=== PATIENT | male | born 1940 | race Caucasian/White ===

== ENCOUNTER → 2016-07-28 | Day surgery (SDC) | payer OTHER ==
[2016-07-15 08:31] VITALS: BMI 25.0
--- NOTE | 2016-07-15 09:04 | PAT Medication Instructions ---
Service Date Jul 15, 2016. Current Home Medication List Acetaminophen (Tylenol Arthritis Ext Rel), 1,300 MG PO BID PRN for RN Aspirin Enteric Coated (Ecotrin Or Generic *), 81 MG PO QPM Doxazosin Mesylate (Cardura *), 8 MG PO QPM Ranitidine (Zantac), 150 MG PO PRN Simvastatin (Zocor), 40 MG PO QPM Medication Instructions For Your Scheduled Surgery Aspirin Enteric Coated (Ecotrin Or Generic *), 81 MG PO QPM (check with surgeon for instructions) - Hold the following medications the morning of surgery: Ranitidine (Zantac), 150 MG PO PRN - Take the following medications the morning of surgery with a sip of water: Acetaminophen (Tylenol Arthritis Ext Rel), 1,300 MG PO BID PRN for RN - Take the following medications as scheduled the night before surgery: Simvastatin (Zocor), 40 MG PO QPM Ranitidine (Zantac), 150 MG PO PRN Doxazosin Mesylate (Cardura *), 8 MG PO QPM Acetaminophen (Tylenol Arthritis Ext Rel), 1,300 MG PO BID PRN for RN If you have any questions please call us at [phone] (Raeann Norris PA-C ) or [phone] or [phone]
--- NOTE | 2016-07-15 09:51 | DIAGNOSTIC IMAGING REPORT ---
CHEST PREADMISSION(PA/LAT) CLINICAL HISTORY: Preoperative evaluation. COMPARISON STUDY: No previous studies for comparison. FINDINGS: Lung volumes are normal. There is no pneumothorax or pleural effusion. Pulmonary vascularity is normal. No consolidation is identified to suggest pneumonia. Cardiac size is normal. Mediastinal contours are normal. Lateral view demonstrates a moderate to severe thoracic spine compression fracture within the mid to lower thoracic spine which is likely old. IMPRESSION: 1. No acute cardiopulmonary findings. 2. Old thoracic spine compression fracture. Electronically signed by: Eladio Sanders M.D. 07/15/2016 9:50 AM Dictated Date/Time: 07/15/2016 9:49 AM
[2016-07-15 10:01] LABS: BASO % 0.7 %; BASO ABS # 0.04 K/uL (0-0.2); COMPLETE YES; EOS % 4.3 %; IG% 0.2 %; LYMPH % 24.1 %; LYMPH ABS # 1.45 K/uL (1.2-3.4); MEAN CELL VOLUME 96.3 fL (80-100); MEAN CORPUSCULAR HEMOGLOBIN 33.9 pg (25-34); MEAN CORPUSCULAR HGB CONC 35.2 g/dl (32-36); MEAN PLATELET VOLUME 10.1 fL (7.4-10.4); MONO % 8.2 %; NEUT % 62.5 %; PLATELET COUNT 236 K/uL (130-400); RED BLOOD COUNT 4.36 M/uL (4.7-6.1); WHITE BLOOD COUNT 6.01 K/uL (4.8-10.8)
[2016-07-15 10:02] LABS: URINE APPEARANCE CLEAR (CLEAR); URINE BILIRUBIN NEG (NEG); URINE COLOR YELLOW; URINE NITRITE NEG (NEG); URINE SPECIFIC GRAVITY 1.019 (1.000-1.030); UROBILINOGEN NEG (NEG)
[2016-07-15 10:05] LABS: MANUAL MICROSCOPIC REQUIRED? NO; REVIEW REQ? NO
[2016-07-15 10:15] LABS: PARTIAL THROMBOPLASTIN RATIO 1.1; PROTHROMBIN TIME (PATIENT) 10.7 SECONDS (9.0-12.0)
[2016-07-15 10:22] LABS: BUN/CREATININE RATIO 17.3 (10-20); CALCIUM 8.9 mg/dl (8.5-10.1); CREATININE 1.3 mg/dl (0.60-1.40); POTASSIUM 4.3 mmol/L (3.5-5.1)
--- NOTE | 2016-07-27 10:18 | HISTORY & PHYSICAL EXAMINATION ---
DATE OF ADMISSION: 07/28/2016 CHIEF COMPLAINT: Left shoulder pain. HISTORY OF PRESENT ILLNESS: The patient is a 75-year-old gentleman seen and evaluated in our office with complaints of left shoulder pain and disability. He had x-rays and an MRI. MRI showed a left shoulder rotator cuff tear and he is now scheduled for a left shoulder arthroscopy, subacromial decompression, and rotator cuff repair. PAST MEDICAL HISTORY: Stage III chronic kidney disease, osteoporosis, hyperlipidemia, diverticulosis. PAST SURGICAL HISTORY: Lithotripsy, abdominal exploration, colonoscopy, inguinal hernia repair as a child. MEDICATIONS: Aspirin 81 mg daily, Zantac 150 mg daily, simvastatin 80 mg daily, doxazosin mesylate 8 mg daily at bedtime. ALLERGIES: PRAVASTATIN WHICH CAUSES A RASH. SOCIAL HISTORY: He states [id number] smoking history. REVIEW OF SYSTEMS: Noncontributory. PHYSICAL EXAMINATION: GENERAL: Well-nourished, well-developed elderly male who appears stated age. HEENT: Normocephalic, atraumatic, extraocular movements intact, oropharynx pink and moist. NECK: Supple without adenopathy. LUNGS: Clear to auscultation bilaterally. HEART: Regular rate and rhythm. ABDOMEN: Soft, nontender, nondistended. EXTREMITIES: The left shoulder demonstrates limited painful range of motion. There is weakness in the rotator cuff with resistive testing. X-RAYS: The MRI was reviewed and shows a small nonretracted supraspinatus tear. There are some mild degenerative changes at the AC joint. ASSESSMENT: Left shoulder rotator cuff tear. PLAN: Risks versus benefits were discussed, consent was obtained. We will proceed with left shoulder arthroscopy, subacromial decompression, and rotator cuff repair as indicated upon preop workup and medical clearance.
[~2016-07-28] VITALS: Ht 180.3 cm; Wt 81.2 kg
[~2016-07-28] MED LIST: ACET1TAB84 PO; ASPEC81 PO; ATROPINE SULFATE 0.1 MG/ML 5ML SYR IV PRN; CEFAZOLIN SOD 1000MG/55 ML D5W IV ONE; CRD4 PO; DEXAMETHASONE SOD INJ 4 MG/ML VIAL ONE; EpHEDrine SULFATE 50MG/5ML SYR ONE; EpHEDrine SULFATE INJ 50 MG/ML AMP IV PRN; FENTANYL CITRATE INJ 50 MCG/1 ML 2 ML VIAL IV PRN; FENTANYL CITRATE INJ 50 MCG/1 ML 2 ML VIAL ONE; HYDROCODONE/ACETAMOPHEN 5/325MG TAB PO PRN; HYDROmorphone INJ 1 MG/ML SYR IV PRN; LACTATED RINGER'S 1000ML 1,000 ML IV SCH; LIDOCAINE HCL 2% 2 ML VIAL (20MG/ML) ONE; MIDAZOLAM HCL 1 MG/ML 2ML VIAL ONE; NURSING VERBAL MED ORDER ONE; ONDANSETRON INJ 2 MG/ML 2 ML VIAL IV PRN; ONDANSETRON INJ 2 MG/ML 2 ML VIAL ONE; OXYC-57 PO; OXYCODONE/ACETAMINOPHEN 5-325 TAB PO PRN; PHENYLEPHRINE 100MCG/ML 5ML SYR ONE; PROPOFOL IV EMULSION 10 MG/ML 20 ML VIAL IV ONE; ROPIVACAINE 0.5% 5 MG/ML 30 ML VIAL ONE; SIMV40TA2 PO; SODIUM CHLORIDE 0.9% 1000ML 1,000 ML IV SCH; ZNTT/150 PO
[2016-07-28 05:40] VITALS: BP 147/85; PULSE 56; TEMP 36.5; O2SAT 96; Ht 180.3 cm; Wt 81.2 kg
--- NOTE | 2016-07-28 06:57 | History & Physical Bridge Note ---
H&P Re-Evaluation Bridge Note: I have examined the patient, reviewed the History & Physical and in the interval since the performance of the History & Physical I have noted the following changes of clinical significance: No changes noted
--- NOTE | 2016-07-28 08:14 | [facility] Post Operative Brief Note ---
Immediate Operative Summary Operative Date Jul 28, 2016. Pre-Operative Diagnosis Left shoulder rotator cuff tear Post-Operative Diagnosis Left shoulder rotator cuff tear Procedure(s) Performed Left Shoulder Arthroscopic Subacromial Decompression, Rotator Cuff Repair Surgeon Dr. Stephon Sierra Video Poker [place] Surgeon(s) Satya Cox PA-C Estimated Blood Loss 20mL Specimens None per surgeon Complication(s) None Disposition Recovery Room / PACU
--- NOTE | 2016-07-28 08:22 | Discharge Instructions ---
Discharge Instructions Visit Reason for Visit: Left Shoulder Impingement Syndrome, Rotator Cuff T Discharge Discharge Diagnosis / Problem: Left shoulder rotator cuff tear Discharge Goals Goal(s): Decrease discomfort, Improve function Activity Recommendations Activity Limitations: as noted below Anesthesia . Post Anesthesia Instructions: If you have had General Anesthesia or IV Sedation: * Do not drive today. * Resume driving when surgeon permits. * Do not make important decisions or sign legal documents today. * Call surgeon for: 1. Temperature elevations greater than 101 degrees F. 2. Uncontrollable pain. 3. Excessive bleeding. 4. Persistent nausea and vomiting. 5. Medication intolerance (nausea, vomiting or rash). * For nausea and vomiting use only clear liquids such as: tea, soda, bouillon until nausea subsides, then gradually increase diet as tolerated. * If you have any concerns or questions, call your surgeon's office. If physician is unavailable and it is an emergency, call 911 or go to the nearest emergency room. . Instructions / Follow-Up Instructions / Follow-Up [facility] DISCHARGE INSTRUCTIONS: ROTATOR CUFF REPAIR SELF CARE INSTRUCTIONS A. You are permitted to loosen your sling/immobilizer to move your elbow, wrist , and hand to prevent stiffness. You should use your well arm (good arm) to assist the operated extremity when trying to raise the arm away from the body, hygiene purposes. Do NOT actively try to use/engage your shoulder muscles in operative arm at this time. You should NOT do overhead activity, lifting, or attempt to reach behind your back. B. You may/may not be instructed to start Physical Therapy upon discharge depending upon the size and difficulty of the repair. You will be provided a prescription for therapy with specific restrictions, if needed, at time of discharge. C. At 48 hours post-operatively, you may change your dressing. Use band-aids and change daily. You are allowed to shower at this time and get the incision area wet, but DO NOT soak or submerge incision area in water. (No baths, swimming pools, hot tubs) D. Do NOT apply soap or any ointment/lotions directly over incision. E. You may use ice as needed to operative shoulder SPECIAL CARE INSTRUCTIONS: VERY IMPORTANT TO READ AND REVIEW A. There are a few signs you need to watch for after you are home. Call [facility] at [phone] if you experience any of the following: a. Increased severe shoulder pain. Some pain is expected especially when you exercise b. Increased swelling in your shoulder or arm; pain or swelling in either upper extremity. (Note: swelling and stiffness is normal and expected for several weeks post op, depending on type of shoulder surgery you had). c. Any fluid or drainage from the incision; redness of the incision. d. Shortness of breath or chest pain. B. Please call [facility] at [phone] if you have any questions or concerns about your operation or recovery. C. Call your physician if: a. Temperature is greater than 101 degrees (F). b. Pain is not relieved by prescribed pain medications. c. Increase drainage or redness from incision. d. Unanswered questions or concerns. D. Pain Medication: a. You will be prescribed pain medication upon discharge that should last till your first post-operative appointment. b. If you experience nausea and/or skin rash, discontinue this medication and contact our office for an alternative medication. c. Caution- narcotic pain medication can cause constipation. FOLLOW UP VISIT: Please call [facility] at [phone] to schedule a follow up appointment 10-14 days from your surgery date. Diet Recommendations Recommended Home Diet: resume previous diet Procedures Procedures Performed: Left Shoulder Arthroscopic Subacromial Decompression, Rotator Cuff Repair Pending Studies Studies pending at discharge: no Medical Emergencies . Who to Call and When: Medical Emergencies: If at any time you feel your situation is an emergency, please call 911 immediately. . Non-Emergent Contact Non-Emergency issues call your: Surgeon Call Non-Emergent contact if: temperature is above 101.5, your pain is not controlled, wound has increased drainage, wound has increased redness . . "Provider Documentation" section prepared by Satya Cox PA-C.
--- NOTE | 2016-07-28 08:40 | OPERATIVE REPORT ---
DATE OF OPERATION: 07/28/2016 PREOPERATIVE DIAGNOSIS: Rotator cuff tear, left shoulder. POSTOPERATIVE DIAGNOSIS: Rotator cuff tear, left shoulder. PROCEDURE: Arthroscopic subacromial decompression, rotator cuff repair, left shoulder. SURGEON: Dr. Sierra. CASTING AND CURING OPERATOR: Satya Cox PA-C. ANESTHESIA: General. COMPLICATION: None. DESCRIPTION OF PROCEDURE: Following induction of adequate general anesthesia, the patient was placed in the beach chair position, and the posterior shoulder was prepped and draped in the usual sterile manner. A posterior incision was made for insertion of the arthroscope. Intraarticular elements were identified. Glenohumeral joint was normal. The undersurface of the rotator cuff showed a small rotator cuff tear. Long head of the biceps was intact. The arthroscope was placed in the subacromial space where abundant bursitis was encountered. Arthroscopic subacromial decompression and bursectomy was carried out using a 90 degree ablator and a 5.5 mm bur. The bur was then used to expose subchondral bone at the insertion point for the rotator cuff and a single 5.5 mm Healicoil anchor was utilized to repair the rotator cuff. This was taken to a footprint creating a double-row repair which was stable and watertight. There being no additional pathology, the arthroscope was withdrawn. Wounds were closed using 4-0 nylon simple sutures. Sterile dressing of Adaptic, 4 x 4's, ABDs, foam tape and a Velpeau sling was applied. The patient tolerated the procedure well. I attest to the content of the Intraoperative Record and any orders documented therein. Any exceptions are noted below. GEENA
--- NOTE | 2016-07-28 09:17 | Anesthesiology Progress Note ---
Anesthesia Post Op Note Date & Time Jul 28, 2016 at 09:17 Vital Signs Pain Intensity: 0 Vital Signs Past 12 Hours Date Time Temp Pulse Resp B/P Pulse Ox O2 Delivery O2 Flow Rate FiO2 07/28/16 09:05 76 14 138/73 94 Room Air 07/28/16 08:55 36.3 73 14 137/81 96 Room Air 07/28/16 08:45 73 15 146/81 99 Room Air 07/28/16 08:35 69 13 133/73 100 Mask 10 07/28/16 08:25 69 12 132/76 100 Mask 10 07/28/16 08:18 36.0 66 14 127/72 97 Mask 10 07/28/16 05:40 36.5 56 20 147/85 96 Room Air Notes Mental Status: alert / awake / arousable, participated in evaluation Pt Amnestic to Procedure: Yes Nausea / Vomiting: adequately controlled Pain: adequately controlled Airway Patency, RR, SpO2: stable & adequate BP & HR: stable & adequate Hydration State: stable & adequate Anesthetic Complications: no major complications apparent
[2016-07-28 09:20] VITALS: BP 135/73; PULSE 72; TEMP 36.4; O2SAT 93
[2016-07-28 09:50] VITALS: BP 130/76; PULSE 76; TEMP 36.4; O2SAT 94
[2016-07-28 10:20] VITALS: BP 139/76; PULSE 78; TEMP 36.5; O2SAT 94
--- NOTE | 2016-08-01 09:34 | EDITING REQUIRED CODING QUERY ---
CQ ROTATOR CUFF TEAR To promote full compliance with coding requirements relating to patient care, provider participation is requested in all cases of sports specialist uncertainty. Please assist us with the question(s) below: Please Specify the type of Rotator Cuff Tear by placing an "X" within the parenthesis (). If other please document type. () Current/Traumatic (X) Degenerative DOS 07/28/16 () Nontraumatic Complete () Nontraumatic Partial () Other:(Please Specify) Thank you Sabine Torres
== END | disposition home or self-care (01) ==
LOC: C.ACU 05:05
DX: M75.102 Unspecified rotator cuff tear or rupture of left shoulder, not specified as traumatic (principal); M75.52 Bursitis of left shoulder; M81.0 Age-related osteoporosis without current pathological fracture; N18.3 Chronic kidney disease, stage 3 (moderate); F17.210 Nicotine dependence, cigarettes, uncomplicated; E78.5 Hyperlipidemia, unspecified; Z98.890 Other specified postprocedural states

== ENCOUNTER 2023-11-06 14:57 | Inpatient (IN) ==
[2023-11-06 15:41] LABS: iSTAT Creatinine 1.6 mg/dl (0.6-1.3); iSTAT Hemoglobin 12.6 g/dl (14.0-18.0); iSTAT Ionized Calcium 1.08 mmol/l (1.12-1.32); iSTAT Potassium 4.1 mmol/L (3.3-5.0)
--- NOTE | 2023-11-06 15:46 | XRay Report ---
XR chest 1V portable CLINICAL HISTORY: Sepsis TECHNIQUE: Single frontal radiograph of the chest was obtained. Comparison: Comparison is made to chest radiograph 03/03/2023 FINDINGS: No lines and tubes are seen. The cardiomediastinal silhouette is normal. Airspace opacity is in the l eft lower lung. No evidence of pleural effusion or pneumothorax. IMPRESSION: Airspace opacity in the left lower lung. This may represent atelectasis, pneumonia, and/or aspiration . ACT 112: Negative or not required by law. Electronically signed by: Ruddy Clarke M.D. 11/06/2023 3:45 PM
[2023-11-06] MEDS: SODIUM CHLORIDE 0.9% 1,000 ML IV ONE ×2 (15:48→16:56)
[2023-11-06] MEDS: ACETAMINOPHEN 325 MG TAB PO STA (15:48)
[2023-11-06] MEDS: cefTRIAXone SODIUM 2,000 MG/50 ML BAG IV STA (15:48)
[2023-11-06 15:49] LABS: Hematocrit (blood only) 37.1 % (42.0-52.0); Hemoglobin 12.7 g/dl (14.0-18.0); Mean Corpuscular Hemoglobin 32.8 pg (25.0-34.0); Mean Corpuscular Hgb Conc 34.2 g/dL (32.0-36.0); Mean Corpuscular Volume 95.9 fL (80.0-100.0); Mean Platelet Volume 11.5 fL (9.4-12.4); Platelet Count 145 K/uL (130-400); RDW Coefficient of Variation 12.6 % (11.5-14.5); RDW Standard Deviation 44.6 fL (36.4-46.3); Red Blood Count 3.87 M/uL (4.70-6.10); White Blood Count 9.51 K/ul (4.8-10.8)
[2023-11-06] MEDS: AZITHROMYCIN 250 MG TAB PO ONE (15:50)
[2023-11-06 16:04] LABS: Alanine Aminotransferase 18 U/L (7-52); Albumin Level 4.2 gm/dl (3.4-5.0); Alkaline Phosphatase 57 U/L (34-104); Anion Gap 13 (3-11); Aspartate Aminotransferase 45 U/L (13-39); BUN Creatinine Ratio 17.9 (10-20); Bilirubin Direct 0.2 mg/dl (0-0.2); Bilirubin,Total 0.9 mg/dl (0.2-1.0); Blood Urea Nitrogen 29 mg/dl (6-23); Calcium 9.4 mg/dl (8.6-10.3); Carbon Dioxide 20 mmol/L (21-32); Chloride 101 mmol/L (98-107); Est GFR (African American) 44.2 ml/min; Est GFR (Non-African American) 38.1 ml/min; Glucose 167 mg/dl (70-99(Fasting)); Magnesium 1.7 mg/dl (1.7-2.4); Sodium 134 mmol/L (136-145); Total Protein 8.1 gm/dl (6.0-8.3)
[2023-11-06 16:07] LABS: Basophils # (auto) 0.02 K/uL (0.00-0.20); Basophils % (auto) 0.2 %; Immature Granulocytes # (auto) 0.05 K/uL (0.01-0.20); Immature Granulocytes % (auto) 0.5 %; Lymphocytes # (auto) 0.47 K/uL (1.20-3.40); Lymphocytes % (auto) 4.9 %; Monocytes # (auto) 0.37 K/uL (0.11-0.59); Monocytes % (auto) 3.9 %; Neutrophils % (auto) 90.5 %
[2023-11-06 16:12] LABS: Troponin I High Sensitivity 67.1 pg/ml (0-20)
--- NOTE | 2023-11-06 16:14 | CT Scan Report ---
CT OF THE ABDOMEN AND PELVIS WITHOUT CONTRAST CLINICAL HISTORY: sepsis back pain with urinary sx COMPARISON STUDY: CT of the abdomen and pelvis December 10, 2017. TECHNIQUE: Axial images of the abdomen and pelvis were obtained without IV contrast. Images were revi ewed in the axial, sagittal, and coronal planes. Automated exposure control was utilized for the kj dy. A dose lowering technique was utilized adhering to the principles of ALARA. FINDINGS: Airspace opacities noted throughout visualized portions of the left lower lobe, including f oci of consolidation and groundglass opacity. 4 mm subpleural right lower lobe nodule on image 22 of [address] of December 10, 2017. This is benign given stability. Emphysema within the lowe r lungs is present. No pneumatosis, free air or portal venous gas is noted. Several bilateral renal c alculi measure up to 7 mm. There are no ureteral calculi. There is no hydronephrosis mild bladder wal l thickening is present. This is likely chronic. Evaluation the remainder of the abdomen and pelvis i s suboptimal on this unenhanced exam. Low-attenuation hepatic lesions are similar to prior CT and fav or cysts. Nodularity left adrenal gland is unremarkable. Spleen, right adrenal gland pancreas are unr emarkable. There is no biliary or pancreatic ductal dilatation. 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 There is a 3 cm infrarenal abdominal aortic aneurysm. Extensive sigmoid diverticulosis is noted without evidence for acute diverticulitis. There is a large amount of stool within the rectum. No bowel wall thickening is identified on unenhanced exam. There is symmetr ic bilateral perinephric stranding. The appendix is normal. There is no lymphadenopathy. Several old lower thoracic spine compression deformities are incidentally noted. No acute fractures within the farhan mbar spine, pelvis or hips. IMPRESSION: 1. Bilateral nephrolithiasis. No ureteral calculi or hydronephrosis. Symmetric bilateral perinephric infiltration, a nonspecific finding which could be correlated with urinalysis. 2. Airspace opacity throughout visualized portions of the left lower lobe suggestive of pneumonia. A follow-up chest CT in 2 months to ensure resolution is recommended. 3. Large amount of stool within the rectum. 4. Extensive sigmoid diverticulosis. No evidence for acute diverticulitis. 5. 3 cm infrarenal abdominal aortic aneurysm. ACT 112: Negative or not required by law. Electronically signed by: Eladio Sanders M.D. 11/06/2023 4:11 PM
--- NOTE | 2023-11-06 16:39 | History & Physical Report ---
Date of Service November 06, 2023 Assessment & Plan (1) Severe sepsis with acute organ dysfunction: (2) Community acquired pneumonia of left lower lobe of lung: (3) Acute kidney injury: (4) Myocardial infarction due to demand ischemia: (5) Acute hyperglycemia: (6) Constipation, unspecified: (7) Nicotine dependence: Plan Patient is a 83-year-old gentleman presents with severe sepsis with organ dysfunction as evidenced by abnormal creatinine, lactic acidosis and hyperglycemia. He is critically ill and requires hospital level care for IV medications laboratory monitoring. He is at high risk for further decompensation without hospital level care Admit to a monitored setting Broad-spectrum antibiotics for community-acquired pneumonia IV fluid resuscitation, monitor renal function and lactic acid Echocardiogram for evaluation of the demand ischemia Monitor glucose, check hemoglobin A1c, suspect hyperglycemia may be due to sepsis Continue home medications as ordered Mag citrate and soapsuds enema for significant constipation, then start daily MiraLAX Nicotine patch as needed, smoking cessation education History of Present Illness Chief Complaint: Generalized weakness and fatigue. Sent in by his PCP due to his acute illness Primary Care Provider: Albert Clancy MD Patient is a 83-year-old gentleman with history of recurrent UTIs. Has not been feeling well for the past few days with increasing weakness and fatigue. Was seen by his PCP earlier today and was concerned that he may have a urinary tract infection. Recommended he be seen in the emergency room. In the emergency room urinalysis was unremarkable, however chest x-ray was consistent with a left lower lobe pneumonia. CT of the abdomen pelvis also confirmed infiltrates in the left lower lobe. He had a significant lactic acidosis and elevated procalcitonin and was referred for further evaluation. Time of my evaluation patient was resting in the ER stretcher. His daughter was at the bedside. He reports that he had subjective fevers at home starting on Monday, he also reports chills and rigors. He states has not been eating or drinking much for the past few days having eaten only a little bit of Jell-O. He does report that he has not had a bowel movement for several days which is unusual for him. He denies any cough no shortness of breath and no chest pain. No swelling his hands arms legs or feet. No real changes in his urine other than that his daughter noticed that his urine was very dark at his PCPs office earlier today. Allergies Allergy/AdvReac Type Severity Reaction Status Date / Time pravastatin Allergy Unknown RASH HIVES Verified 11/06/23 16:53 ITCHING omeprazole Allergy Rash Verified 11/06/23 16:55 Home Medications Medication Instructions Recorded Confirmed Type acetaminophen 650 mg 650 mg PO Q8 PRN Pain 11/06/23 11/06/23 History tablet,extended release (Tylenol Arthritis Pain) aspirin 81 mg chewable tablet 81 mg PO DAILY 11/06/23 11/06/23 History atorvastatin 40 mg tablet 40 mg PO HS 11/06/23 11/06/23 History cholecalciferol (vitamin D3) 25 25 mcg PO DAILY 11/06/23 11/06/23 History mcg (1,000 unit) tablet (Vitamin D3) cyanocobalamin (vitamin B-12) 1,000 mcg PO DAILY 11/06/23 11/06/23 History 1,000 mcg tablet (Vitamin B-12) finasteride 5 mg tablet 5 mg PO QAM 11/06/23 11/06/23 History multivitamin 1 tab PO DAILY 11/06/23 11/06/23 History tramadol 50 mg tablet 50 mg PO AMHS 11/06/23 11/06/23 History trazodone 50 mg tablet 50 mg PO HS 11/06/23 11/06/23 History Past Med/Surg History Problem List (Updated 11/06/23 @ 17:14 by Og Santacruz DO) Nicotine dependence Constipation, unspecified Acute hyperglycemia Myocardial infarction due to demand ischemia Severe sepsis with acute organ dysfunction Community acquired pneumonia of left lower lobe of lung Acute kidney injury (Acute) Medical History Hx SBO Osteoarthritis Kidney stones BPH (benign prostatic hyperplasia) GERD (gastroesophageal reflux disease) Lyme disease 5 years ago - treated Hyperlipidemia Surgical History History of prostate surgery History of cataract surgery LEFT CATARACT. 06/20/2018. 2mg versed. no issues. History of laparoscopy relieve SBO History of sinus surgery History of repair of rotator cuff left History of lithotripsy History of colonoscopy Social History Smoking Status: Current every day smoker Tobacco Type: Cigarettes Cigarettes Per Day: 1 ppd; Second Hand Exposure: Yes; Do You Dip or Chew Tobacco: No; Hx Alcohol Use: No Hx Substance Use: No Preferred Language: Indonesian Communication Ability: Effective Binding Dyer Required: No Beliefs That Will Affect Care: None Current Living Situation: Alone Feels Safe at Home: Yes Assistive Devices: None Review of Systems Review of Systems: Pertinent positive and negative review of systems as mentioned in the HPI Physical Exam Physical Exam: Constitutional: Alert, ill in appearance, mildly toxic in appearance HEENT: Mucous membranes dry. Sclera clear Neck: Soft, no adenopathy Lungs: Clear to auscultation, decreased, some egophony in left lower lobe, some fine crackles left lower lobe, no wheezes CV: S1-S2, regular Abdomen: Soft, nontender, nondistended Extremities: No significant edema Musculoskeletal: No significant joint tenderness Neuro: No focal deficits Psych: Cooperative, normal mood Results & Data Results & Data Vital Signs (Past 12 Hours) Vital Signs Temp Pulse Resp BP Pulse Ox O2 Del Method 11/06/23 15:54 94 Room Air 11/06/23 15:35 95 H 11/06/23 15:30 96 H 16 96 11/06/23 15:30 151/80 H 11/06/23 15:20 96 H 21 91 11/06/23 15:00 38.7 C H 105 H 18 134/78 97 Room Air Diagnostic Findings Reviewed imaging, laboratory and diagnostic studies. Pertinent findings as below. Personally reviewed chest x-ray infiltrate left lower lobe Personally reviewed CT images, confirms infiltrate in left lower lobe, large rectum and colon with evidence of stool. Reviewed radiology report Personally reviewed EKG sinus rhythm with bundle branch block, unchanged from previous Initial lactic acid 3.0 Troponin 67.1 Procalcitonin 4.87 creatinine 1.62 Glucose 167 [employer] respiratory panel still pending Reviewed records from outside facility, reviewed PCP notes, reviewed urology notes. Reviewed HPI with ED physician
--- NOTE | 2023-11-06 16:51 | Emergency Department Note ---
Impression & Plan Sepsis, Pneumonia, Acute kidney injury ED Provider Note NAME: CARLOS NORIEGA AGE: 83 SEX: M : 1940 ARRIVES VIA: Walk-In INFORMANT: Patient ED PROVIDER(S): Saud Joel DO CHIEF COMPLAINT: Possible UTI HPI: Patient is an 83-year-old male who presents the ER who notes that he has been feeling very weak for the past 4 days. He feels tired and rundown. Does feel little lightheaded. Does have some urinary urgency. Denies any headache or change in vision. No chest pain or shortness of breath. No nausea, vomiting or diarrhea. No dysuria or urgency. No other exacerbating or remitting factors. present at bedside provides additional history and notes that he has been feeling very tired and rundown. ADDITIONAL HISTORY OBTAINED: Per HPI Chronic Medical/Social Conditions Affecting Care: Per HPI PAST MEDICAL HISTORY:See Below PAST SURGICAL HISTORY:See Below FAMILY HISTORY:See Below SOCIAL HISTORY:See Below HOME MEDICATIONS:See Below ALLERGIES:See Below VITALS:See Below PHYSICAL EXAMINATION: GENERAL: Sitting up in bed, alert, well appearing, well nourished, no distress, non-toxic EYE EXAM: normal conjunctiva. OROPHARYNX: no exudate, no erythema, lips, buccal mucosa, and tongue normal and mucous membranes are moist NECK: supple, no nuchal rigidity, no adenopathy, non-tender LUNGS: Clear to auscultation. Normal chest wall mechanics HEART: Tachycardic, S1 normal and S2 normal ABDOMEN: abdomen soft, non-tender, normo-active bowel sounds, no masses, no rebound or guarding. BACK: Back is symmetrical on inspection and there is no deformity, no midline tenderness, no CVA tenderness. SKIN: no rashes and no bruising UPPER EXTREMITIES: upper extremities are grossly normal. LOWER EXTREMITIES: No pitting edema. NEURO EXAM: Normal sensorium, cranial nerves II-XII grossly intact, normal speech, no gross weakness of arms, no gross weakness of legs. MEDICAL DECISION MAKING: Patient is an 83-year-old male who presents ER for the above-stated complaint with a past medical history of CT, and sepsis. IV was established blood work was obtained. Labs show no significant leukocytosis or anemia. BMP with a mild TROY with creatinine 1.6 up from baseline of 1. Lactate was elevated at 3 with an elevated troponin 67 likely secondary to the sepsis. Pro-Gurvinder elevated as well. Viral panel was pending. UA was not obtained prior to admission. Patient was given IV Rocephin and azithromycin. Patient was given 2 L of IV fluids. Patient was not given a total of 30 cc/kg as vitals improved significantly and did not want to cause failure. Patient was updated bedside discussed case with the hospitalist for further evaluation management treatment. Consults/Care Managements Discussions: Per MDM Triage Nursing notes reviewed. Limited review of prior medical records performed Vital Signs: reviewed and remarkable for febrile and tachycardic Differential diagnosis: Differential diagnosis includes etiologies such as sepsis, UTI, pneumonia, metabolic, electrolyte abnormalities, cardiac sources, intracerebral event, toxicologic, neurological, as well as others were entertained. ER treatment provided: See below Diagnostics interpreted by me include EKG and cardiac monitoring as listed below: -Cardiac Monitoring: An order was placed for continuous cardiac monitoring. The monitor shows a rate of [] with [] rhythm. -ECG: Sinus rhythm rate 96 Left axis Right bundle branch block T wave inversion in the septal and anterior leads QTc 462 -Laboratory studies:Interpreted by me as stated above in MDM and shown below. Imaging studies: Xrays: As interpreted by me: Portable AP upright 1 view of the chest shows left lower lobe infiltrate CTs show: CT abdomen pelvis shows a pneumonia and inflammation of the kidneys Procedures:none Critical Care: None Past Med/Surg History Problem List (Updated 11/06/23 @ 16:51 by Saud Joel DO) Pneumonia (Acute) Sepsis (Acute) Constipation, unspecified Acute hyperglycemia Myocardial infarction due to demand ischemia Severe sepsis with acute organ dysfunction Community acquired pneumonia of left lower lobe of lung Acute kidney injury (Acute) Medical History (Updated 11/06/23 @ 16:51 by Saud Joel DO) Hx SBO Osteoarthritis Kidney stones BPH (benign prostatic hyperplasia) GERD (gastroesophageal reflux disease) Lyme disease 5 years ago - treated Hyperlipidemia Surgical History (Updated 11/06/23 @ 16:06 by Og Santacruz DO) History of prostate surgery History of cataract surgery LEFT CATARACT. 06/20/2018. 2mg versed. no issues. History of laparoscopy relieve SBO History of sinus surgery History of repair of rotator cuff left History of lithotripsy History of colonoscopy Social History Smoking Status: Current every day smoker Tobacco Type: Cigarettes Cigarettes Per Day: 1 ppd; Second Hand Exposure: Yes; Do You Dip or Chew Tobacco: No; Hx Alcohol Use: No Hx Substance Use: No Preferred Language: Yakut Communication Ability: Effective Product Distribution Specialist Required: No Beliefs That Will Affect Care: None Current Living Situation: Alone Feels Safe at Home: Yes Assistive Devices: None Allergies Allergies Allergy/AdvReac Type Severity Reaction Status Date / Time pravastatin Allergy Unknown RASH HIVES Verified 11/06/23 16:53 ITCHING omeprazole Allergy Rash Verified 11/06/23 16:55 Home Meds Home Medications Medication Instructions Recorded Confirmed aspirin 81 mg tablet,delayed 81 mg PO QPM 05/30/18 03/03/23 release atorvastatin 40 mg tablet 40 mg PO PM 05/30/18 03/03/23 Tylenol 650 mg PO DAILY PRN Pain 03/03/23 03/03/23 finasteride 5 mg tablet 5 mg PO QAM 03/03/23 03/03/23 multivitamin 1 tab PO QAM 03/03/23 03/03/23 tramadol 50 mg tablet 50 mg PO BID 03/03/23 03/03/23 trazodone 50 mg tablet 50 mg PO .1TO3HR BEFORE HS 03/03/23 03/03/23 Results & Data (ED) Vital Signs Vital Signs - 24 hr 11/06/23 15:00 11/06/23 15:20 11/06/23 15:30 Temperature 38.7 C H Temperature Source Temporal Artery Scan Pulse Rate 105 H 96 H Pulse Rate [Apical] Pulse Rate from SpO2 Sensor 96 H Pulse Rhythm [Apical] Respiratory Rate 18 21 Respiratory Effort / Characteristics Non-Labored Spontaneous Respiratory Depth Normal Blood Pressure 134/78 151/80 H Blood Pressure [Left Arm] Blood Pressure Mean 96 96 Blood Pressure Mean [Left Arm] Pulse Oximetry 97 91 Oxygen Delivery Method Room Air Sepsis Recent Fever Within 48 Hours Yes Sepsis New/Unexplained Change in Mental Status No Sepsis Action Taken by Nursing No Action Required 11/06/23 15:30 11/06/23 15:35 11/06/23 15:54 Temperature Temperature Source Pulse Rate 96 H 95 H Pulse Rate [Apical] Pulse Rate from SpO2 Sensor 97 H Pulse Rhythm [Apical] Respiratory Rate 16 Respiratory Effort / Characteristics Respiratory Depth Blood Pressure Blood Pressure [Left Arm] Blood Pressure Mean Blood Pressure Mean [Left Arm] Pulse Oximetry 96 94 Oxygen Delivery Method Room Air Sepsis Recent Fever Within 48 Hours Sepsis New/Unexplained Change in Mental Status Sepsis Action Taken by Nursing 11/06/23 16:34 Temperature 38.1 C H Temperature Source Temporal Artery Scan Pulse Rate Pulse Rate [Apical] 74 Pulse Rate from SpO2 Sensor Pulse Rhythm [Apical] Regular Respiratory Rate 18 Respiratory Effort / Characteristics Non-Labored Respiratory Depth Normal Blood Pressure Blood Pressure [Left Arm] 119/63 Blood Pressure Mean Blood Pressure Mean [Left Arm] 81 Pulse Oximetry 94 Oxygen Delivery Method Room Air Sepsis Recent Fever Within 48 Hours Sepsis New/Unexplained Change in Mental Status Sepsis Action Taken by Nursing Laboratory Data 11/06/23 15:25 11/06/23 15:25 Lab Results 11/06/23 11/06/23 Range/Units 15:25 15:28 WBC 9.51 (4.8-10.8) K/ul RBC 3.87 L (4.70-6.10) M/uL Hgb 12.7 L (14.0-18.0) g/dl POC Hgb 12.6 L (14.0-18.0) g/dl Hct 37.1 L (42.0-52.0) % POC Hct 37 L (42-52) % MCV 95.9 (80.0-100.0) fL MCH 32.8 (25.0-34.0) pg MCHC 34.2 (32.0-36.0) g/dL RDW Std Deviation 44.6 (36.4-46.3) fL RDW Coeff of Markos 12.6 (11.5-14.5) % Plt Count 145 (130-400) K/uL MPV 11.5 (9.4-12.4) fL Immature Gran % (Auto) 0.5 % Neut % (Auto) 90.5 % Lymph % (Auto) 4.9 % [place] % (Auto) 3.9 % Eos % (Auto) 0.0 % Baso % (Auto) 0.2 % Neut # (Auto) 8.60 H (1.40-6.50) K/uL Lymph # (Auto) 0.47 L (1.20-3.40) K/uL [place] # (Auto) 0.37 (0.11-0.59) K/uL Eos # (Auto) 0.00 (0.00-0.50) K/uL Baso # (Auto) 0.02 (0.00-0.20) K/uL Immature Gran # (Auto) 0.05 (0.01-0.20) K/uL POC Sodium 135 (135-144) mmol/L Sodium 134 L (136-145) mmol/L POC Potassium 4.1 (3.3-5.0) mmol/L Potassium 4.0 (3.5-5.1) mmol/L POC Chloride 103 (101-112) mmol/L Chloride 101 (98-107) mmol/L Carbon Dioxide 20 L (21-32) mmol/L POC Total CO2 20 L (24-31) mmol/L Anion Gap 13 H (3-11) POC Anion Gap 17.0 (16-25) mmol/L POC BUN 27 H (7-18) mg/dl BUN 29 H (6-23) mg/dl Creatinine 1.62 H (0.6-1.4) mg/dl POC Creatinine 1.6 H (0.6-1.3) mg/dl Est Cr Clr Drug Dosing Not Reportable Est GFR ( Amer) 44.2 ml/min Est GFR (Non-Af Amer) 38.1 ml/min BUN/Creatinine Ratio 17.9 (10-20) Glucose 167 H (70-99(Fasting)) mg/dl POC Glucose (other) 163 H (70-99) mg/dl Lactate 3.0 H* (0.4-2.0) mmol/L Calcium 9.4 (8.6-10.3) mg/dl POC Ioniz Calcium [place] 1.08 L (1.12-1.32) mmol/l Magnesium 1.7 (1.7-2.4) mg/dl Total Bilirubin 0.9 (0.2-1.0) mg/dl Direct Bilirubin 0.2 (0-0.2) mg/dl AST 45 H (13-39) U/L ALT 18 (7-52) U/L Alkaline Phosphatase 57 (34-104) U/L Troponin I High Sens 67.1 H* (0-20) pg/ml Total Protein 8.1 (6.0-8.3) gm/dl Albumin 4.2 (3.4-5.0) gm/dl Procalcitonin 4.87 H (0-0.5) ng/ml Administered Medications Sodium Chloride (Nss) 1,000 mls @ 999 mls/hr IV .Q1H1M ONE Stop: 11/06/23 17:51 Last Admin: 11/06/23 16:56 Dose: 999 mls/hr Documented By: SPARKLE Discontinued Medications Acetaminophen (Acetaminophen 325 Mg Tab) 650 mg PO NOW STA Stop: 11/06/23 15:10 Last Admin: 11/06/23 15:48 Dose: 650 mg Documented By: SPARKLE Azithromycin (Azithromycin 250 Mg Tab) 500 mg PO NOW ONE Stop: 11/06/23 15:44 Last Admin: 11/06/23 15:50 Dose: 500 mg Documented By: SPARKLE Sodium Chloride (Nss) 1,000 mls @ 999 mls/hr IV .Q1H1M ONE Stop: 11/06/23 16:09 Last Infusion: 11/06/23 16:37 Dose: Infused Documented By: Admin: 11/06/23 15:48 Dose: 999 mls/hr Documented By: SPARKLE Ceftriaxone Sodium (Rocephin) 2,000 mg in 50 mls @ 100 mls/hr IV NOW STA Stop: 11/06/23 15:38 Last Infusion: 11/06/23 16:36 Dose: Infused Documented By: Admin: 11/06/23 15:48 Dose: 100 mls/hr Documented By: SPARKLE Imaging Data Radiologist's Impression: Chest X-Ray 11/06/23 15:09 XR chest 1V portable CLINICAL HISTORY: Sepsis TECHNIQUE: Single frontal radiograph of the chest was obtained. Comparison: Comparison is made to chest radiograph 03/03/2023 FINDINGS: No lines and tubes are seen. The cardiomediastinal silhouette is normal. Airspace opacity is in the left lower lung. No evidence of pleural effusion or pneumothorax. IMPRESSION: Airspace opacity in the left lower lung. This may represent atelectasis, pneumonia, and/or aspiration. ACT 112: Negative or not required by law. Electronically signed by: Ruddy Clarke M.D. 11/06/2023 3:45 PM Abdomen/Pelvis CT 11/06/23 15:24 CT OF THE ABDOMEN AND PELVIS WITHOUT CONTRAST CLINICAL HISTORY: sepsis back pain with urinary sx COMPARISON STUDY: CT of the abdomen and pelvis December 10, 2017. TECHNIQUE: Axial images of the abdomen and pelvis were obtained without IV contrast. Images were reviewed in the axial, sagittal, and coronal planes. Automated exposure control was utilized for the study. A dose lowering technique was utilized adhering to the principles of ALARA. FINDINGS: Airspace opacities noted throughout visualized portions of the left lower lobe, including foci of consolidation and groundglass opacity. 4 mm subpleural right lower lobe nodule on image 22 of [address] of December 10, 2017. This is benign given stability. Emphysema within the lower lungs is present. No pneumatosis, free air or portal venous gas is noted. Several bilateral renal calculi measure up to 7 mm. There are no ureteral calculi. There is no hydronephrosis mild bladder wall thickening is present. This is likely chronic. Evaluation the remainder of the abdomen and pelvis is suboptimal on this unenhanced exam. Low-attenuation hepatic lesions are similar to prior CT and favor cysts. Nodularity left adrenal gland is unremarkable. Spleen, right adrenal gland pancreas are unremarkable. There is no biliary or pancreatic ductal dilatation. 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 There is a 3 cm infrarenal abdominal aortic aneurysm. Extensive sigmoid diverticulosis is noted without evidence for acute diverticulitis. There is a large amount of stool within the rectum. No bowel wall thickening is identified on unenhanced exam. There is symmetric bilateral perinephric stranding. The appendix is normal. There is no lymphadenopathy. Several old lower thoracic spine compression deformities are incidentally noted. No acute fractures within the lumbar spine, pelvis or hips. IMPRESSION: 1. Bilateral nephrolithiasis. No ureteral calculi or hydronephrosis. Symmetric bilateral perinephric infiltration, a nonspecific finding which could be correlated with urinalysis. 2. Airspace opacity throughout visualized portions of the left lower lobe suggestive of pneumonia. A follow-up chest CT in 2 months to ensure resolution is recommended. 3. Large amount of stool within the rectum. 4. Extensive sigmoid diverticulosis. No evidence for acute diverticulitis. 5. 3 cm infrarenal abdominal aortic aneurysm. ACT 112: Negative or not required by law. Electronically signed by: Eladio Sanders M.D. 11/06/2023 4:11 PM Discharge Plan Visit Data Chief Complaint: Referred by Doctor Stated Complaint: UTI ED Provider: Saud Joel Discharge Problem: Sepsis, Pneumonia, Acute kidney injury Forms Stand Alone Forms: [facility] Referrals Referrals: Albert Clancy MD [Primary Care Provider] - Discharge Problem: Sepsis Qualifiers: Sepsis type: sepsis due to unspecified organism Sepsis acute organ dysfunction status: unspecified Qualified Code(s): A41.9 - Sepsis, unspecified organism Pneumonia Qualifiers: Pneumonia type: due to unspecified organism Laterality: unspecified laterality Lung location: unspecified part of lung Qualified Code(s): J18.9 - Pneumonia, unspecified organism
--- NOTE | 2023-11-06 17:08 | Electrocardiogram Report ---
Test Reason : Blood Pressure : / mmHG Vent. Rate : 096 BPM Atrial Rate : 096 BPM P-R Int : 160 ms QRS Dur : 126 ms QT Int : 366 ms P-R-T Axes : 047 -10 045 degrees QTc Int : 462 ms Normal sinus rhythm Right bundle branch block Abnormal ECG When compared with ECG of 03-MAR-2023 14:07, No significant change was found Confirmed by Sidney Enriquez ([id number]) on 11/06/2023 5:08:35 PM Referred By: Albert Clancy Confirmed By:Sidney Enriquez
[2023-11-06 17:13] LABS: Adenovirus PCR Not Detected (NotDetected); Bordetella parapertussis PCR Not Detected (NotDetected); Bordetella pertussis PCR Not Detected (NotDetected); Chlamydia pneumoniae PCR Not Detected (NotDetected); Coronavirus 229E PCR Not Detected (NotDetected); Coronavirus CoV-2 (COVID19)PCR Not Detected (NotDetected); Coronavirus HKU1 PCR Not Detected (NotDetected); Coronavirus NL63 PCR Not Detected (NotDetected); Coronavirus OC43PCR Not Detected (NotDetected); Human Metapneumovirus PCR Not Detected (NotDetected); Influenza A PCR Not Detected (NotDetected); Influenza B PCR Not Detected (NotDetected); Mycoplasma pneumoniae PCR Not Detected (NotDetected); Parainfluenza Virus 1 PCR Not Detected (NotDetected); Parainfluenza Virus 2 PCR Not Detected (NotDetected); Parainfluenza Virus 3 PCR Not Detected (NotDetected); Parainfluenza Virus 4 PCR Not Detected (NotDetected); Respiratory Syncytial VirusPCR Not Detected (NotDetected); Rhinovirus/Enterovirus PCR Not Detected (NotDetected)
[2023-11-06] MEDS ORDERED: ONDANSETRON INJ 2 MG/ML 2 ML VIAL IV PRN (19:14)
[2023-11-06] MEDS ORDERED: MELATONIN 3 MG TAB PO PRN (19:14)
[2023-11-06] MEDS ORDERED: ALBUT/IPRATROP 3MG/0.5MG NEB 3 ML VIAL NEB PRN (19:14)
[2023-11-06] MEDS: traMADol HCL 50 MG TABLET PO PRN (19:34)
[2023-11-06] MEDS: SODIUM CHLORIDE 0.9% 1,000 ML IV SCH (19:35)
[2023-11-06] MEDS: MAGNESIUM CITRATE 296 ML/BTL PO ONE (19:45)
[2023-11-06] MEDS: ENOXAPARIN INJ 40 MG/0.4 ML SYR SQ SCH (20:02)
[2023-11-06] MEDS: ATORVASTATIN 40 MG TAB PO SCH (20:02)
[2023-11-06] MEDS: guaiFENesin 600 MG TABCR PO SCH (20:03)
[2023-11-06] MEDS: ASPIRIN 81 MG ECTAB PO SCH (20:03)
[2023-11-06] MEDS: traZODone HCL 50 MG TAB PO SCH (20:05)
[2023-11-06 23:44] LABS: Appearance Urine Clear (Clear); Bacteria Urine Automated None Seen (None Seen); Bilirubin Urine Negative (Negative); Blood Urine 3+ (Negative); Cast Urine Automated 0-2 /lpf (0-2); Color Urine Yellow; Epithelial Cell Urine Auto 0-2 /hpf (0-2); Glucose Urine UA Negative (Negative); Ketones Urine Negative (Negative); Leukocyte Esterase Urine Negative (Negative); Nitrite Urine Negative (Negative); Protein Urine 3+ (Negative); Specific Gravity Urine 1.019 (1.000-1.030); Urobilinogen Urine Negative (Negative); WBC Urine Automated 0-5 /hpf (0-5); pH Urine 6.5 (4.5-7.5)
--- OUTSIDE RECORDS SUMMARY | 2023-11-07 05:10 | External Medical Summary | Summary of Care ---
Author Name Unknown Organization [facility] Address [address] [place] [address] Phone [phone] Care Team Providers Care Supervisor Dehydrogenation Name Role Phone Albert Clancy MD Primary Care Provider [phone] Reason for Visit * Reason Onset Date Comments Order Request 10/16/2023 Encounter Details Date Type Department Care Team ([facility] st Contact Info) Description 10/16/2023 Telephone [facility] [address] [place] [address] Albert Clancy MD [address] [place] [address] Order Request Allergies Active Allergy Reactions Criticality Noted Date Comments Omeprazole Rash Medium 09/04/2018 Pravastatin Hives,Itching,Rash 05/14/2012 documented as of this encounter (statuses as of 10/17/2023) Medications Medication Sig Dispensed Refills Start Date End Date Status atorvaSTATin (LIPITOR) 40 MG TabletIndications:Dys lipidemia, goal LDL below 70 Take 1 Tab by mouth daily. 90 Tab 3 05/02/2018 Active Additional Information Patient taking differently:40 mg OralHS, Reported on 01/17/2023 Acetaminophen ER 650 MG Oral Tablet Extended Release Take 1 Tablet by mouth every 8 hours as needed for Pain, Mild. 30 Tab 0 01/07/2021 Active Multi Vitamin Daily Oral Tablet Take by mouth. 0 Active Aspirin 81 MG Oral Tablet Chewable Take 1 Tablet by mouth in the morning. 0 Active Finasteride 5 MG Oral Tablet (Proscar) Take 1 Tablet by mouth in the morning. 90 Tablet 3 12/28/2022 Active Vitamin D-3 25 MCG (1000 UT) Oral Capsule Take 1 Capsule by mouth in the morning. 0 Active Vitamin B-12 1000 MCG Oral Tablet (Cyanocobalamin) Take 1 Tablet by mouth in the morning. 0 Active traMADol HCl 50 MG Oral Tablet (Ultram)Indications:P rimary osteoarthritis involving multiple joints,Chronic bilateral low back pain without sciatica Take 1 Tablet by mouth in the morning and 1 Tablet before bedtime. 60 Tablet 0 09/13/2023 Active traZODone HCl 50 MG Oral Tablet (Desyrel)Indications: Persistent insomnia TAKE 1 TABLET BY MOUTH 1-3 HOURS BEFORE BEDTIME 90 Tablet 0 10/09/2023 Active documented as of this encounter (statuses as of 10/17/2023) Active Problems Problem Noted Date Diagnosed Date Bladder stones 12/28/2022 Carotid stenosis, non-symptomatic, bilateral Chronic kidney disease, stage 3a 08/30/2021 Overview: Per CKD protocol Abdominal aortic aneurysm (AAA) without rupture 09/08/2020 MEDICATION USE AGREEMENT 07/30/2019 Pulmonary nodules 08/17/2017 Overview: Repeat low dose CT in 6 months Multiple lipomas 01/20/2016 Primary osteoarthritis involving multiple joints 07/21/2015 BPH with obstruction/lower urinary tract symptom s 07/21/2015 Tobacco use disorder 01/20/2015 Gastroesophageal reflux disease without esophagi tis 12/12/2014 PVD (peripheral vascular disease) 05/14/2012 Impotence of organic origin 05/05/2011 Chronic bilateral low back pain without sciatica 12/14/2007 Dyslipidemia, goal LDL below 70 documented as of this encounter (statuses as of 10/17/2023) Resolved Problems Problem Noted Date Diagnosed Date Resolved Date Chronic kidney disease, stage 3b 01/07/2021 09/01/2021 Encounter for long-term (cur rent) use of medications 01/20/2015 07/21/2015 History of Lyme disease 12/12/201408/17 Lyme disease 12/03/2013 07/21/2015 Fatigue 12/03/2013 07/21/2015 Myalgia and myositis 11/15/2013 015 Arthralgia 11/15/2013 07/21/2015 Microalbuminuria 11/04/2013 01/20/2016 Shortness of breath 11/13/2012 12/13/19 15 Malaise and fatigue 11/13/2012 07/21/19 16 DJD (degenerative joint disease) 05/14/2012 07/21/2015 Routine medical exam 05/14/2012 016 Tobacco use disorder 05/14/2012 013 Dyslipidemia, goal LDL below 100 01/04/2012 05/30/2013 Pruritic disorder 01/04/2012 07/21/2015 Tobacco use disorder 11/07/2011 016 AAA (abdominal aortic aneurysm) 11/07/2011 05/30/2013 Major depressive disorder 11/07/2011 Overview: ICD-10 update of inactive term Dermatitis 11/07/2011 05/30/2013 Special screening for malign ant neoplasm of prostate 11/07/2011 07/21/2015 Dyslipidemia, goal LDL below 100 11/02/2011 01/20/2016 Malaise and fatigue 05/05/2011 11/14/19 13 Major depressive disorder 05/05/2011 Overview: ICD-10 update of inactive term Bilateral inguinal hernia 10/28/2010 Tobacco use disorder 10/20/2010 012 Right bundle branch block 10/20/2010 Senile osteoporosis 04/27/2010 04/27/20 10 Diverticulosis of colon 01/21/201007/2015 Screening for prostate cancer 12/31/2009 07/21/2015 Adjustment disorder with depressed mood 12/31/2009 04/23/2010 HISTORY OF TOBACCO USE, QUIT 10/2612/31/2009 10/20/2010 Dyslipidemia, goal LDL below 100 06/03/2009 11/02/2011 Overview: Per Lipid Taxonomy. Screening for prostate cancer 03/24/2009 04/09/2009 Overview: Modified by Screening Dx Protocol #6. Need for pneumococcal vaccination 03/24/2009 07/21/2015 HISTORY OF TOBACCO USE, quit 09/2510/06/2008 05/05/2011 Elevated blood pressure, situational 10/06/2008 03/24/2009 Kidney Dz,Chronic (GFR 30-59) Stage III 10/06/2008 09/01/2021 ABDOMINAL AORTIC ANEURYSM, 2.5 cm 03/2610/06/2008 11/22/2011 HX OF PATHOLOGICAL FRACTURE OF VERTEBRAE, T9 9 02/21/2017 HX OF PATHOLOGICAL FRACTURE OF VERTEBRAE 03/25/2008 10/06/2008 Spasm of muscle 12/14/2007 03/25/2008 Benign neoplasm of colon 10/24/200607/2015 Overview: repeat in 3 years Need for influenza vaccination 03/28/2006 07/21/2015 Special screening for malign ant neoplasms, colon 03/28/2006 08/27/2008 Overview: Resolved per Screening Diagnosis Protocol #6 Senile osteoporosis 05/31/2005 05/30/20 13 Dyslipidemia, goal to be determined 03/20/2003 06/03/2009 Overview: Per Lipid Taxonomy. Osteoporosis 03/20/2003 03/25/2008 Esophageal reflux 03/20/2003 05/14/2012 HX OF CALCULUS OF KIDNEY 03/20/2003 ROUTINE MEDICAL EXAM 03/20/2003 012 Screening for prostate cancer 03/20/2003 08/27/2008 Overview: Resolved per Screening Diagnosis Protocol #6 Pectus excavatum 03/14/2002 11/26/2012 Calculus of kidney 11/23/1999 1 HYPERLIPIDEMIA NEC-NOS 03/19 GENERAL OSTEOARTHROSIS 05/14 Tobacco use disorder 010 FAM HX-DIABETES MELLITUS Family history of other card iovascular diseases 07/21/2015 Overview: ICD-10 update of inactive term BPH with obstruction/lower u rinary tract symptoms 07/21/2015 Allergic rhinitis 02/21/2017 History of vertebral fracture 09/04/2018 documented as of this encounter (statuses as of 10/17/2023) Immunizations Name Administration Dates Next Due Pneumococcal Conjugate Vacc, 13 Valent (Prevnar) 01/20/2016 Pneumococcal Polysaccharide PPV23 (Pneumovax) 03/24/2009 Season Influenza, Quad, PF, Adjuvanted, 65+ Yrs, IM (FLUAD) 03/25/2020 Seasonal Influenza, PF, 6 M & above, IM , (FluLaval or Fluzone) 04/08/2023,03/26/2019,03/29/2018,08/23 Seasonal Influenza, Quadriva lent Hd (Fluzone Hd) 04/13/2022,04/03/2021 Seasonal Influenza, Quadriva lent, No Preserve, IM 08/18/2016,07/21/2015 Seasonal Influenza, Split, I IV3, With Preserve, Inj 05/30/2013,05/14/2012,05/05/2011,04/23,03/24/2009,03/25/2008,03/20/2007 ,03/28/2006 TD, Preservative Free 03/25/2008 TDAP (age 10 and older)(Boostrix) 12/03/2013 Varicella Zoster Vaccine (Adult) 01/22/2009 Zoster Vaccine Recombinant (Shingrix) 08/16/2018 ,02/26/2018 documented as of this encounter Social History Tobacco Use Types Packs/Day Years Used Date Smoking Tobacco: Every Day Cigarettes 1 54 Smokeless Tobacco: Never Comments:08/30/23 1 pack amrit y, declined pamphlet Alcohol Use Standard Drinks/Week Comments Yes 0 (1 standard drink = 0.6 oz pur e alcohol) rare PHQ-2 Answer Date Recorded PHQ Adult Total Score 0 02/22/2022 Hunger Vital Sign Answer Date Recorded Within the past 12 months, y ou worried that your food would run out before you got the money to buy more. Never true 03/06/20 23 Within the past 12 months, t he food you bought just didn't last and you didn't have money to get more. Never true 03/06/2023 Sex and Gender Information Value Date Recorded Sex Assigned at Male 09/07/2018 12:57 PM EDT Gender Identity Male 09/07/2018 12:57 PM EDT Sexual Orientation Straight 09/07/2018 12 :57 PM EDT Job Start Date Occupation Industry Not on file Not on file Not on file documented as of this encounter Miscellaneous Notes * Telephone Encounter - Kami Solorzano LPN - 10/17/2023 9:36 AM EDT Pt aware and verbalized understanding of message. * Telephone Encounter - Albert Clancy MD - 10/16/2023 5:57 PM EDT NotifyPt: he needs fasting labs (ordered)anytime before OV * Telephone Encounter - Kathleen Kennedy LPN - 10/16/2023 11:33 AM EDT Pt requesting labs. upcoming appt on 01/02 with PCP - lab appt already scheduled for 12/26 Please advise. * Telephone Encounter - Rosalba Pelayo OSA - 10/16/2023 9:55 AM EDT An order was requested for this patient. Name of Requesting Provider: Patient Order Requested: labs Diagnosis/Reason for Request: upcoming appt on 01/02 with PCP - lab appt already scheduled for 12/26 If order request is for Mammogram: Is the patient having any breast symptoms? N/A Is there a chance of ? N/A Has the patient had any breast problems in the past? NA What location AND department does the patient wish to have their order completed at? N/a Fax Number, if applicable: n/a If the caller is not a current patient, please advise the patient to call their current PCP to havethe order's prior to being seen in our office. The patient was informed that our providers would not order anything (medication, labs, etc.) prior to being seen. documented in this encounter Plan of Treatment Upcoming Encounters Date Type Department Care Team (Late st Contact Info) Description 12/27/2023 7:40 AM EDT Laboratory Laboratory, [place] [address] [place] [facility] [place] [id number] [facility] [address] [place] [address] 01/03/2024 9:40 AM EDT Office Visit Family [facility], [place] [address] [place] [id number] Albert Clancy MD [address] [place] [address] 02/20/2024 3:15 PM EDT Office Visit Urology, [facility] [address] [facility] [place] [address] Mic Meek MD [address] [facility] [address] [place] [address] Scheduled Orders Name Type Priority Associated Diagnoses Orde r Schedule LIPID PANEL WITH DIRECT LDL IF TG IS HIGH Lab Routine Dyslipidemia, goal LDL below 70 Expected: 10/16/2023, Expires: 10/15/2024 Health Maintenance Due Date Last Done Comments DXA Scan 11/30/2015 11/29/2012, 10/2009, 04/23/2010, Additional history exists DISCUSS TOBACCO CESSATION (REFER TO SMARTSET #3291) 12/13/2015 12/12/2014 (Discussed) COVID-19 Vaccine ( season) 2023 Depression Screening 02/22/2023 02/22/2022, 01/20/2016, 12/12/2014 (Discussed) DTaP,Tdap,and Td Vaccines (2 - Td or Tdap) 12/04/2023 12/03/2013, 03/25/2008, 11/18/1995 CKD HGB USE SMARTSET 24501 12/29/202312/28, 03/17/2022, 08/06/2021, Additional history exists Albumin/Creatinine Ratio 06/15/2024 023, 08/24/2020, 09/14/2018, Additional history exists CKD PHOS USE SMARTSET 96267 07/10/202406/20, 06/15/2023, 03/17/2022, Additional history exists Pneumococcal Vaccine: 65+ Years Completed 01/20/2016, 03/24/2009, 03/14/2002 Zoster Vaccines Completed 08/16/2018, 02/17, 02/17/2009, Additional history exists Influenza Vaccine (FLU shot) Completed , 04/13/2022, 04/03/2021, Additional history exists GARDASIL-HPV IMMUNIZATION SERIES Aged Out No longer eligible based on patient's age to complete this topic Hepatitis B Aged Out No longer eligi ble based on patient's age to complete this topic MENINGOCOCCAL (MENACTRA/MENVEO) Aged Out No longer eligible based on patient's age to complete this topic documented as of this encounter Medical Devices Not on filedocumented as of this encounter Visit Diagnoses Diagnosis Dyslipidemia, goal LDL below 70- Primary Other and unspecified hyperlipidemia documented in this encounter Advance Directives Latest Code Status on File Code Status Date Activated Date Inactivated Comments Full Code 02/06/2023 3:34 PM 02/06/2023 8:38 PM This order reflects the patients wishes and were consensually agreed upon. Question Answer Comments Discussion of Advance Directives occurred with: Patient Code Status History Code Status Date Activated Date Inactivated Comments Full Code 02/06/2023 11:24 AM 02/06/2023 3:34 PM This order reflects the patients wishes and were consensually agreed upon. Question Answer Comments Discussion of Advance Directives occurred with: Patient Care Teams Supervisor Dehydrogenation Relationship Specialty Start Date End Date Albert Clancy MD [address] [facility] [place] [address] PCP - General Family Medicine 10/25/17 documented as of this encounter
--- OUTSIDE RECORDS SUMMARY | 2023-11-07 05:10 | External Medical Summary | Summary of Care ---
Author Name Unknown Organization [facility] Address [address] [place] [address] Phone [phone] Care Team Providers Care Historic Preservationist Name Role Phone Markus Clancy MD Primary Care Provider [phone] Reason for Referral * Medication Prior Authorization - Pending Review Specialty Diagnoses / Procedures Referred By Trinity t Referred To Contact Diagnoses Primary osteoarthritis involving multiple joints Chronic bilateral low back pain without sciatica Markus Clancy MD [address] [place] [address] Referral ID Status Reason Start Date Expiration Date V isits Requested Visits Authorized [id number] Pending Review 999 999 Reason for Visit * Reason Onset Date Comments Medication Refill 09/12/2023 Encounter Details Date Type Department Care Team (Late st Contact Info) Description 09/12/2023 Refill [facility] [address] [place] [address] Markus Clancy MD [address] [place], [place] [id number] Primary osteoarthritis involving multiple joints; Chronic bilateral low back pain without sciatica Allergies Active Allergy Reactions Criticality Noted Date Comments Omeprazole Rash Medium 09/04/2018 Pravastatin Hives,Itching,Rash 05/14/2012 documented as of this encounter (statuses as of 09/13/2023) Medications Medication Sig Dispensed Refills Start Date End Date Status atorvaSTATin (LIPITOR) 40 MG TabletIndications:D yslipidemia, goal LDL below 70 Take 1 Tab [...] the morning. 90 Tablet 3 12/28/2022 Active traZODone HCl 50 MG Oral Tablet (Desyrel)Indication s:Persistent insomnia TAKE 1 TABLET BY MOUTH 1 TO 3 HOURS BEFORE BEDTIME 90 Tablet 1 04/04/2023 Active Vitamin D-3 25 MCG (1000 UT) Oral Capsule Take 1 Capsule by mouth in the morning. 0 Active Vitamin B-12 1000 MCG Oral Tablet (Cyanocobalamin) Take 1 Tablet by mouth in the morning. 0 Active traMADol HCl 50 MG Oral Tablet (Ultram)Indications :Primary osteoarthritis involving multiple joints,Chronic bilateral low back pain without sciatica Take 1 Tablet by mouth in the morning and 1 Tablet before bedtime. 60 Tablet 0 09/13/2023 Active traMADol HCl 50 MG Oral Tablet (Ultram)Indications :Primary osteoarthritis involving multiple joints,Chronic bilateral low back pain without sciatica Take 1 Tablet by mouth in the morning and 1 Tablet before bedtime. 60 Tablet 0 08/15/2023 4 Discontinue d(Refill) documented as of this encounter (statuses as of 09/13/2023) Active Problems Problem Noted Date Diagnosed Date [...] as of this encounter (statuses as of 09/13/2023) Resolved Problems Problem Noted Date Diagnosed Date [...] branch block 10/20/2010 Senile osteoporosis 04/27/2010 04/27/20 Diverticulosis of colon 01/21/201007/2015 Screening for prostate [...] as of this encounter (statuses as of 09/13/2023) Immunizations Name Administration Dates Next Due Pneumococcal [...] encounter Miscellaneous Notes * Telephone Encounter - Markus Clancy MD - 09/13/2023 7:38 PM EDTSigned Prescriptions: Disp Refills traMADol HCl 50 MG Oral Tablet (Ultram) 60 Tab*0 Sig: Take 1 Tablet by mouth in the morning and 1 Tablet before bedtime. Authorizing Provider: MARKUS CLANCY * Telephone Encounter - Felisa Quiroz RPh - 09/13/2023 12:36 PM EDTPending Prescriptions: Disp Refills traMADol HCl 50 MG Oral Tablet (Ultram) 60 Tab*0 Sig: Take 1 Tablet by mouth in the morning and 1 Tablet before bedtime. * Telephone Encounter - Felisa Quiroz [facility] - 09/13/2023 12:35 PM EDT I have reviewed the patients controlled substance dispensing history in the Prescription Drug Monitoring Program in compliance with the [facility] regulations before prescribing a controlled substance. PDMP checked on 09/13/2023. Pending Prescriptions: Disp Refills traMADol HCl 50 MG Oral Tablet (Ultram) 60 Tab*0 Sig: Take 1 Tablet by mouth in the morning and 1 Tablet before bedtime. Last Visit: 04/05/2023 (in office), Visit date not found (telemedicine) Next Visit: Visit date not found Date medication was last filled: 08/15/23 Date medication is due for refill: 09/13/23 Pharmacy: [id number] [address] [place] [address] Is this request for a controlled substance? Yes and Urine Drug Screen Not completed Toxicology results: No results found for this or any previous visit. Please approve if appropriate. Thanks, Felisa Quiroz Clinical Pharmacist [facility] ([facility]) (Formerly Telepharm[facility]) [phone] 09/13/2023, 12:35 PM * Telephone Encounter - Hailey Tompkins PHARM Tech - 09/12/2023 1:10 PM EDT Did you pend patient's preferred pharmacy and medication before forwarding?yes Pharmacy: [id number] [address] [place] [address] Pending Prescriptions: Disp Refills traMADol HCl 50 MG Oral Tablet (Ultram) 60 Tab*0 Sig: Take 1 Tablet by mouth in the morning and 1 Tablet before bedtime. Last Visit: 04/05/2023 (in office), Visit date not found (telemedicine) Next Visit: Visit date not found If no future appointments scheduled, and last appointment is greater than a year ago, please schedule patient for a follow-up appointment Last date the medication was ordered: 08/15/2023 Is this request for a controlled substance?Yes, What was the last refill date 08/15/2023 w/ quantity 60 and dosage 50 mg and Urine Drug Screen Not completed Urine Drug Screen:No results found for this or any previous visit. Patient Phone Numbers Labs: Lab Results Component Value Date/Time CREAT 1.4 (H) 12/28/2022 09:40 AM CREAT 1.2 09/14/2018 08:25 AM POTASSIUM 4.9 12/28/2022 09:40 AM POTASSIUM 4.7 12/05/2018 07:55 AM POTASSIUM 4.3 04/02/1996 10:00 AM TSH 1.63 05/02/2018 10:06 AM LDLCALC 66 02/15/2022 09:09 AM LDLCALC 69 09/14/2018 08:25 AM LDLCALC 235. (HH) 04/19/1996 09:00 AM LDLDIRECT NOT APPLICABLE 09/14/2018 08:25 AM LDLCHOL 117 (A) 09/26/2008 08:11 AM ALT 23 02/15/2022 09:09 AM ALT 21 12/05/2018 07:55 AM documented in this encounter Plan of Treatment Upcoming Encounters Date Type Department Care Team (Late st Contact Info) Description 02/20/2024 3:15 PM EDT Office Visit Urology, [facility] [address] [facility] [place] [address] Mic Meek MD [address] [facility] [address] [place] [id number] Health Maintenance Due Date Last Done Comments DXA Scan 11/30/2015 11/29/2012, 10/2009, 04/23/2010, Additional history exists DISCUSS TOBACCO CESSATION (REFER TO SMARTSET #3291) 12/13/2015 12/12/2014 (Discussed) COVID-19 Vaccine ( season) 2023 Depression Screening 02/22/2023 02/22/2022, 01/20/2016, 12/12/2014 (Discussed) GFR 06/30/2023 12/28/2022, 02/18, 02/15/2022, Additional history exists DTaP,Tdap,and Td Vaccines (2 - Td or Tdap) 12/04/2023 12/03/2013, 03/25/2008, 11/18/1995 CKD HGB USE SMARTSET 85499 12/29/202312/28, 03/17/2022, 08/06/2021, Additional history exists Albumin/Creatinine Ratio 06/15/2024 023, 08/24/2020, 09/14/2018, Additional history exists CKD PHOS USE SMARTSET 57242 07/10/202406/20, 06/15/2023, 03/17/2022, Additional history exists Pneumococcal [...] as of this encounter Visit Diagnoses Diagnosis Primary osteoarthritis involving multiple joints Chronic bilateral low back pain without sciatica documented in this encounter Advance Directives Latest [...] Advance Directives occurred with: Patient Care Teams Historic Preservationist Relationship Specialty Start Date End Date Markus Clancy MD [address] [place] [address] PCP - General Family Medicine 10/25/17 documented as of this encounter
--- OUTSIDE RECORDS SUMMARY | 2023-11-07 05:10 | External Medical Summary | Summary of Care ---
Author Name Unknown Organization [facility] Address [address] [place] [address] Phone [phone] Care Team Providers Care Enroller Name Role Phone Markus Clancy MD Primary Care Provider [phone] Reason for Visit * Reason Onset Date Comments Medication Refill 10/16/2023 Encounter Details Date Type Department Care Team (Late st Contact Info) Description 10/16/2023 Refill [facility] [address] [place] [address] Markus Clancy MD [address], [place] [phone] Primary osteoarthritis involving multiple joints; Chronic bilateral [...] by mouth in the morning. 0 Active traZODone HCl 50 MG Oral Tablet (Desyrel)Indication s:Persistent insomnia TAKE 1 TABLET BY MOUTH 1-3 HOURS BEFORE BEDTIME 90 Tablet 0 10/09/2023 Active traMADol HCl 50 MG Oral Tablet (Ultram)Indications :Primary osteoarthritis involving multiple joints,Chronic bilateral low back pain without sciatica Take 1 Tablet by mouth in the morning and 1 Tablet before bedtime. 60 Tablet 0 10/17/2023 Active traMADol HCl 50 MG Oral Tablet (Ultram)Indications :Primary osteoarthritis involving multiple joints,Chronic bilateral low back pain without sciatica Take 1 Tablet by mouth in the morning and 1 Tablet before bedtime. 60 Tablet 0 09/13/2023 Discontinue d(Refill) documented as of this encounter [...] Telephone Encounter - Markus Clancy MD - 10/17/2023 5:12 PM EDTSigned Prescriptions: Disp Refills traMADol HCl 50 MG Oral Tablet (Ultram) 60 Tab*0 Sig: Take 1 Tablet by mouth in the morning and 1 Tablet before bedtime. Authorizing Provider: MARKUS CLANCY * Telephone Encounter - Ingris Crespo [facility] - 10/17/2023 3:44 PM EDTPending Prescriptions: Disp Refills traMADol HCl 50 MG Oral Tablet (Ultram) 60 Tab*0 Sig: Take 1 Tablet by mouth in the morning and 1 Tablet before bedtime. * Telephone Encounter - Ingris Crespo [facility] - 10/17/2023 3:43 PM EDT I have reviewed the patients controlled substance dispensing history in the Prescription Drug Monitoring Program in compliance with the [facility] regulations before prescribing a controlled substance. PDMP checked on 10/17/2023. Pending Prescriptions: Disp Refills traMADol HCl 50 MG Oral Tablet (Ultram) 60 Tab*0 Sig: Take 1 Tablet by mouth in the morning and 1 Tablet before bedtime. Last Visit: 04/05/2023 (in office), Visit date not found (telemedicine) Next Visit: 01/03/2024 Date medication was last filled: 09/13 Date medication is due for refill: 10/12 Pharmacy: [id number] [address] Is this request for a controlled substance? Yes and Urine Drug Screen Not completed Toxicology results: No results found for this or any previous visit. Please approve if appropriate. Thank you, Ingris Crespo, PharmD Clinical Pharmacist [facility] ([facility]) [facility] [phone] 10/17/2023, 3:43 PM * Telephone Encounter - Kenny Shepherd microsoft dynamics developer - 10/16/2023 9:44 AM EDT Transferred to schedule appt. Did you pend patient's preferred pharmacy and medication before forwarding?yes Pharmacy: [id number] [address] [place] [address] Pending Prescriptions: Disp Refills traMADol HCl 50 [...] appointment Last date the medication was ordered: 09/13/2023 Is this request for a controlled substance?Yes, What was the last refill date 09/13/2023 w/ [id number] tabs and dosage 50 mg and Urine Drug [...] Description 12/27/2023 7:40 AM EDT Laboratory Laboratory, [place] [address] [place] [phone] [facility] [address], [place] [phone] 01/03/2024 9:40 AM EDT Office Visit Family Practice, [place] [address] [place] [phone] Markus Clancy MD [address] [place] [address] 02/20/2024 3:15 PM EDT Office Visit Urology, [facility] [address] [facility] [place] [address] Mic Meek MD [address] [place] [address] [place] [address] Health Maintenance Due Date Last Done Comments DXA Scan 11/30/2015 11/29/2012, 10/2009, 04/23/2010, Additional history exists DISCUSS TOBACCO CESSATION (REFER TO SMARTSET #3291) 12/13/2015 12/12/2014 (Discussed) COVID-19 Vaccine ( season) 2023 Depression Screening 02/22/2023 02/22/2022, 01/20/2016, 12/12/2014 (Discussed) DTaP,Tdap,and Td Vaccines (2 - Td or Tdap) 12/04/2023 12/03/2013, 03/25/2008, 11/18/1995 CKD HGB USE SMARTSET 83378 12/29/202312/28, 03/17/2022, 08/06/2021, Additional history exists Albumin/Creatinine Ratio 06/15/2024 023, 08/24/2020, 09/14/2018, Additional history exists CKD PHOS USE SMARTSET 13874 07/10/202406/20, 06/15/2023, 03/17/2022, Additional history exists Pneumococcal [...] Advance Directives occurred with: Patient Care Teams Enroller Relationship Specialty Start Date End Date Markus Clancy MD [address] [place] [address] PCP - General Family Medicine 10/25/17 documented as of this encounter
--- OUTSIDE RECORDS SUMMARY | 2023-11-07 05:10 | External Medical Summary | Summary of Care ---
Author Name Unknown Organization [facility] Address [address] [place] [address] Phone [phone] Care Team Providers Care Photography Manager Name Role Phone Markus Clancy MD Primary Care Provider [phone] Reason for Referral * Medication Prior Authorization - Pending Review Specialty Diagnoses / Procedures Referred By Trinity t Referred To Contact Diagnoses Primary osteoarthritis involving multiple joints Chronic bilateral low back pain without sciatica Markus Clancy MD [address] [place] [address] Referral ID Status Reason Start Date Expiration Date V isits Requested Visits Authorized [id number] Pending Review 999 999 Reason for Visit * Reason Onset Date Comments Medication Refill 09/12/2023 Encounter Details Date Type Department Care Team (Late st Contact Info) Description 09/12/2023 Refill [facility] [address] [place] [address] Markus Clancy MD [address], [place] [phone] Primary osteoarthritis involving multiple joints; Chronic bilateral low back pain without sciatica Allergies Active Allergy Reactions Criticality Noted Date Comments Omeprazole Rash Medium 09/04/2018 Pravastatin Hives,Itching,Rash 05/14/2012 documented as of this encounter (statuses as of 09/14/2023) Medications Medication Sig Dispensed Refills Start Date [...] as of this encounter (statuses as of 09/14/2023) Active Problems Problem Noted Date Diagnosed Date [...] as of this encounter (statuses as of 09/14/2023) Resolved Problems Problem Noted Date Diagnosed Date [...] as of this encounter (statuses as of 09/14/2023) Immunizations Name Administration Dates Next Due Diptheria/Tetanus (Adult) 11/18/1995 Pneumococcal Conjugate Vacc, 13 Valent (Prevnar) 01/20/2016 Pneumococcal Polysaccharide PPV23 (Pneumovax) 03/24/2009,03/14/2002 Season Influenza, Quad, PF, Adjuvanted, 65+ Yrs, IM (FLUAD) 03/25/2020 Seasonal Influenza Virus Vac cine, Unspecified Formulation 06/19/1997,06/19/1996 Seasonal Influenza, PF, 6 M & above, IM , (FluLaval or Fluzone) 04/08/2023,03/26/2019,03/29/2018,08/23 Seasonal Influenza, Quadriva lent Hd (Fluzone Hd) 04/13/2022,04/03/2021 Seasonal Influenza, Quadriva lent, No Preserve, IM 08/18/2016,07/21/2015 Seasonal Influenza, Split, I IV3, With Preserve, Inj 05/30/2013,05/14/2012,05/05/2011,04/23,03/24/2009,03/25/2008,03/20/2007 ,03/28/2006,05/06/2003,04/22/2002,1208/2000,06/05/2000,04/22/1999 TD, Preservative Free 03/25/2008 TDAP (age 10 [...] encounter Miscellaneous Notes * Telephone Encounter - Napoleon Easton CPhT - 09/14/2023 8:46 AM EDT Patients insurance would like to inform the office that TRAMADOL HCL 50 MG TABLET is not requiring review because TRAMADOL HCL 50 MG TABLET no review is needed prescription needs to be sent to pharmacy, Last paid claim 08/15/2023, future test claims approved Rx released Thank you, Micah Easton ([facility]) Senior Sales Operations Manager III [facility] Pharmacy Services ([facility]PS) (formerly Telepharmacy) 09/14/2023, 8:46 AM * Telephone Encounter - Markus Clancy MD - 09/13/2023 7:38 PM EDTSigned Prescriptions: Disp Refills traMADol HCl 50 MG Oral Tablet (Ultram) 60 Tab*0 Sig: Take 1 Tablet by mouth in the morning and 1 Tablet before bedtime. Authorizing Provider: MARKUS CLANCY * Telephone Encounter - Felisa Quiroz [facility] - 09/13/2023 12:36 PM EDTPending Prescriptions: Disp Refills traMADol HCl 50 MG Oral Tablet (Ultram) 60 Tab*0 Sig: Take 1 Tablet by mouth in the morning and 1 Tablet before bedtime. * Telephone Encounter - Felisa Quiroz [facility] - 09/13/2023 12:35 PM EDT I have reviewed the patients controlled substance dispensing history in the Prescription Drug Monitoring Program in compliance with the [facility] regulations before prescribing a controlled [...] medication is due for refill: 09/13/23 Pharmacy: [id number] [address] [facility] Is this request for a controlled substance? Yes and Urine Drug Screen Not completed Toxicology results: No results found for this or any previous visit. Please approve if appropriate. Thanks, Felisa Quiroz Clinical Pharmacist [facility] Services ([facility]PS) ([facility]) [phone] 09/13/2023, 12:35 PM * Telephone Encounter - Hailey Tompkins PHARM Tech - 09/12/2023 1:10 PM EDT Did you pend patient's preferred pharmacy and medication before forwarding?yes Pharmacy: E [facility][id number][facility] [address] [facility] Pending Prescriptions: Disp Refills traMADol HCl 50 [...] 02/20/2024 3:15 PM EDT Office Visit Urology, [facility] [address] [place] [address] [facility]ek [facility] [address] [place] [address] Health Maintenance Due Date Last Done Comments DXA Scan 11/30/2015 11/29/2012, 10/2009, 04/23/2010, Additional history exists DISCUSS TOBACCO CESSATION (REFER TO SMARTSET #3291) 12/13/2015 12/12/2014 (Discussed) COVID-19 Vaccine ( season) 2023 Depression Screening 02/22/2023 02/22/2022, 01/20/2016, 12/12/2014 (Discussed) GFR 06/30/2023 12/28/2022, 02/18, 02/15/2022, Additional history exists DTaP,Tdap,and Td Vaccines (2 - Td or Tdap) 12/04/2023 12/03/2013, 03/25/2008, 11/18/1995 CKD HGB USE SMARTSET 27376 12/29/202312/28, 03/17/2022, 08/06/2021, Additional history exists Albumin/Creatinine Ratio 06/15/2024 023, 08/24/2020, 09/14/2018, Additional history exists CKD PHOS USE SMARTSET 15866 07/10/202406/20, 06/15/2023, 03/17/2022, Additional history exists Pneumococcal [...] Advance Directives occurred with: Patient Care Teams Photography Manager Relationship Specialty Start Date End Date Markus Clancy MD [address] [place] [address] PCP - General Family Medicine 10/25/17 documented as of this encounter
--- OUTSIDE RECORDS SUMMARY | 2023-11-07 05:10 | External Medical Summary | Summary of Care ---
Author Name Unknown Organization [facility] Address [address] [place] [address] Phone [phone] Care Team Providers Care Ball Shagger Name Role Phone Markus Clancy MD Primary Care Provider Reason for Visit * Reason Comments eRx-Medication Refill Encounter Details Date Type Department Care Team ([facility] st Contact Info) Description 10/08/2023 Refill [facility] [address] [place] [address] Markus Clancy MD [address] [place] [address] Encounter for long-term (current) use of medications*; Persistent insomnia Allergies Active Allergy Reactions Criticality Noted Date Comments Omeprazole Rash Medium 09/04/2018 Pravastatin Hives,Itching,Rash 05/14/2012 documented as of this encounter (statuses as of 10/10/2023) Medications Medication Sig Dispensed Refills Start Date End Date Status atorvaSTATin (LIPITOR) 40 MG TabletIndications:D yslipidemia, goal LDL below 70 Take 1 Tab by mouth daily. 90 Tab 3 8 Active Additional Information Patient taking differently:40 mg OralHS, Reported on 01/17/2023 Acetaminophen ER 650 MG Oral Tablet Extended Release Take 1 Tablet by mouth every 8 hours as needed for Pain, Mild. 30 Tab 0 1 Active Multi Vitamin Daily Oral Tablet Take by mouth. 0 Active Aspirin 81 MG Oral Tablet Chewable Take 1 Tablet by mouth in the morning. 0 Active Finasteride 5 MG Oral Tablet (Proscar) Take 1 Tablet by mouth in the morning. 90 Tablet 3 3 Active Vitamin D-3 25 MCG (1000 UT) [...] 1 Tablet before bedtime. 60 Tablet 0 4 Active traZODone HCl 50 MG Oral Tablet (Desyrel)Indication s:Persistent insomnia TAKE 1 TABLET BY MOUTH 1-3 HOURS BEFORE BEDTIME 90 Tablet 0 4 Active traZODone HCl 50 MG Oral Tablet (Desyrel)Indication s:Persistent insomnia TAKE 1 TABLET BY MOUTH 1 TO 3 HOURS BEFORE BEDTIME 90 Tablet 1 3 10/09/19 24 Discontinued documented as of this encounter (statuses as of 10/10/2023) Active Problems Problem Noted Date Diagnosed Date [...] as of this encounter (statuses as of 10/10/2023) Resolved Problems Problem Noted Date Diagnosed Date [...] osteoporosis 04/27/2010 04/27/20 10 Diverticulosis of colon 01/21/2010 0207/2015 Screening for prostate cancer 12/31/2009 07/21/2015 Adjustment [...] as of this encounter (statuses as of 10/10/2023) Immunizations Name Administration Dates Next Due Pneumococcal [...] encounter Miscellaneous Notes * Telephone Encounter - Mary Esquivel - 10/10/2023 7:56 PM EDT Received message from [facility] regarding patient needing labs. Patient was notified. Successfully contacted patient and provided [facility] message. * Telephone Encounter - Clay Fernando [facility] - 10/09/2023 2:33 PM EDTSigned Prescriptions: Disp Refills traZODone HCl 50 MG Oral Tablet (Desyrel) 90 Tab*0 Sig: TAKE 1 TABLET BY MOUTH 1-3 HOURS BEFORE BEDTIME Authorizing Provider: MARKUS CLANCY Ordering User: CLAY FERNANDO * Telephone Encounter - Clay Fernando [facility] - 10/09/2023 2:32 PM EDT Provided 90 days supply with 0 refill(s). Per refill protocol patient should have CMP on file within past year. Reviewed AMP report, Care Gaps/Health Maintenance, medications list, and for any routine labs typically ordered for this patient. Lab orders placed. Please contact patient to advise of labs ordered for blood draw. Fasting is not required. Advise toobtain labs before requesting the next refill. Thanks, Clay Fernando, PharmD Clinical Pharmacist Central[facility] Clinical Pharmacy Services ([facility]PS - [facility]) [phone] 10/09/2023 2:32 PM documented in this encounter Plan of Treatment Upcoming Encounters Date Type Department Care Team (Late st Contact Info) Description 02/20/2024 3:15 PM EDT Office Visit Urology, [facility] [address] [facility] [place] [address] Mic Meek MD [address] [place] [address] Scheduled Orders Name Type Priority Associated Diagnoses Orde r Schedule COMPREHENSIVE METABOLIC PANEL Lab Routine Encounter for long-term (current) use of medications Expected: 10/09/2023 (Approximate), Expires: 10/08/2024 Health Maintenance Due Date Last Done Comments DXA Scan 11/30/2015 11/29/2012, 10/2009, 04/23/2010, Additional history exists DISCUSS TOBACCO CESSATION (REFER TO SMARTSET #3293) 12/13/2015 12/12/2014 (Discussed) COVID-19 Vaccine ( season) 2023 Depression Screening 02/22/2023 02/22/2022, 01/20/2016, 12/12/2014 (Discussed) DTaP,Tdap,and Td Vaccines (2 - Td or Tdap) 12/04/2023 12/03/2013, 03/25/2008, 11/18/1995 CKD HGB USE SMARTSET 25703 12/29/202312/28, 03/17/2022, 08/06/2021, Additional history exists Albumin/Creatinine Ratio 06/15/2024 023, 08/24/2020, 09/14/2018, Additional history exists CKD PHOS USE SMARTSET 30988 07/10/202406/20, 06/15/2023, 03/17/2022, Additional history exists Pneumococcal [...] as of this encounter Visit Diagnoses Diagnosis Encounter for long-term (current) use of medications- Primary Encounter for long-term (current) use of other medications Persistent insomnia Persistent disorder of initiating or maintaining sleep documented in this encounter Advance Directives Latest [...] Advance Directives occurred with: Patient Care Teams Ball Shagger Relationship Specialty Start Date End Date Markus Clancy MD [address] [place] [address] PCP - General Family Medicine 10/25/17 documented as of this encounter
--- OUTSIDE RECORDS SUMMARY | 2023-11-07 05:11 | External Medical Summary | Summary of Care ---
Author Name Unknown Organization [facility] Address [address] [place] [address] Phone [phone] Care Team Providers Care Manager Aviation Name Role Phone Albert Clancy MD Primary Care Provider [phone] Encounter Details Date Type Department Care Team (Late st Contact Info) Description 06/18/2023 Telephone [facility] [address] [facility] [address] Albert Clancy MD [address] [place] [address] Allergies Active Allergy Reactions Criticality Noted Date [...] BEFORE BEDTIME 90 Tablet 1 04/04/2023 Active Amoxicillin-Pot Clavulanate 875-125 MG Oral Tablet Take 1 Tablet by mouth in the morning and 1 Tablet before bedtime. 0 4 Discontinu ed(Medicat ion List Clean Up) Nitrofurantoin Monohyd Macro 100 MG Oral Capsule (Macrobid) Take 1 Capsule by mouth at bedtime. With food. Start after completing Cefdnir. 30 Capsule 0 04/10/2023 4 Discontinu ed(Medicat ion List Clean Up) traMADol HCl 50 MG Oral Tablet (Ultram)Indications :Primary osteoarthritis involving multiple joints,Chronic bilateral low back pain without sciatica Take 1 Tablet by mouth in the morning and 1 Tablet before bedtime. 60 Tablet 0 06/07/2023 4 Discontinu ed(Refill) documented as of this encounter (statuses as [...] Day Cigarettes 1 54 Smokeless Tobacco: Never Alcohol Use Standard Drinks/Week Comments Yes 0 [...] encounter Miscellaneous Notes * Telephone Encounter - Cuca Nagel LPN - 06/21/2023 5:17 PM EST Patient was informed of below message and states that he is a bit more tired now; He is not sure ifthat is from the lower levels or from getting older. He states he will come back around the 17th or 18th of this month to have repeat labs done. * Telephone Encounter - Albert Clancy MD - 06/18/2023 11:24 AM EST Notify pt: recent blood work as ordered per pharmacy shows low Phosphorous but about same as previous. Need additional blood work to include another phosphorous and calcium and Vit D. Prefer he wait a couple of weeks before doing this. * Telephone Encounter - Albert Clancy MD - 06/18/2023 11:24 AM EST ----- Message from Judy Romero RPh sent at 06/16/2023 6:25 AM EST ----- ----- Message ----- From: Asa Sánchez Automated Processing Sent: 06/15/2023 4:03 PM EST To: Judy Romero RPh documented in this encounter Plan of Treatment Upcoming Encounters Date Type Department Care Team (Late st Contact Info) Description 02/20/2024 3:15 PM EDT Office Visit Urology, [facility] [address] [facility] [place] [address] Mic Meek MD [address] [facility] [address] [place] [address] Health Maintenance Due [...] 12/03/2013, 03/25/2008, 11/18/1995 CKD HGB USE SMARTSET 95785 12/29/202312/28, 03/17/2022, 08/06/2021, Additional history exists Albumin/Creatinine Ratio 06/15/2024 023, 08/24/2020, 09/14/2018, Additional history exists CKD PHOS USE SMARTSET 94431 07/10/202406/20, 06/15/2023, 03/17/2022, Additional history exists Pneumococcal [...] Not on filedocumented as of this encounter Results * 25-HYDROXY VITAMIN D (07/10/2023 10:16 AM EST) 25-Hydroxy Vitamin D 47 >19 ng/mL 07/10/2023 6:29 PM EST [facility] [place] Venous blood specimen / Unknown Venipuncture / Unknown 07/10/2023 10:16 AM EST 07/10/2023 10:16 AM EST Narrative [facility] - 07/10/2023 6:29 PM EST Deficient: <20 ng/mL Insufficient: 20-29 ng/mL Recommended/Optimum:30-50 ng/mL Vitamin D intoxication is rare. If suspicious of Vitamin D toxicity, evaluation of serum Calcium and PTH is recommended. Albert Clancy MD LAB BLOOD ORDERABLES Performing Organization Address City/[facility]/ZIP Co de Phone Number [facility] [address] [place] [address] * CALCIUM (07/10/2023 10:16 AM EST) Calcium 9.1 8.4 - 10.2 mg/dL 07/10/2023 5:44 PM EST [facility] [place] Venous blood specimen / Unknown Venipuncture / Unknown 07/10/2023 10:16 AM EST 07/10/2023 10:16 AM EST Albert Clancy MD LAB BLOOD ORDERABLES Performing Organization Address [facility] Co de Phone Number [facility] [address] [place] [address] * PHOSPHORUS (07/10/2023 10:16 AM EST) Phosphorus 2.8 2.5 - 4.8 mg/dL 07/10/2023 5:44 PM EST [facility] [place] Venous blood specimen / Unknown Venipuncture / Unknown 07/10/2023 10:16 AM EST 07/10/2023 10:16 AM EST Albert Clancy MD LAB BLOOD ORDERABLES Performing Organization Address [facility] Co de Phone Number [facility] [address] [place] [address] documented in this encounter Visit Diagnoses Diagnosis 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
--- OUTSIDE RECORDS SUMMARY | 2023-11-07 05:11 | External Medical Summary | Summary of Care ---
Author Name Unknown Organization [facility] Address [address] [place] [address] Phone [phone] Care Team Providers Care Double Back Operator Name Role Phone Albert Clancy MD Primary Care Provider [phone] Reason for Visit * Reason Onset Date Comments Appointment 07/27/2023 Encounter Details Date Type Department Care Team ([facility] st Contact Info) Description 07/27/2023 Telephone Vascular Surg [facility] [address] [place] [address] Services, Scheduling [address] [place] [address] Appointment Allergies Active Allergy Reactions Criticality Noted Date Comments Omeprazole Rash Medium 09/04/2018 Pravastatin Hives,Itching,Rash 05/14/2012 documented as of this encounter (statuses as of 07/27/2023) Medications Medication Sig Dispensed Refills Start Date End Date Status atorvaSTATin (LIPITOR) 40 MG TabletIndications:Dy slipidemia, goal LDL below 70 Take 1 Tab [...] the morning. 90 Tablet 3 12/28/2022 Active Amoxicillin-Pot Clavulanate 875-125 MG Oral Tablet Take 1 Tablet by mouth in the morning and 1 Tablet before bedtime. 0 Active traZODone HCl 50 MG Oral Tablet (Desyrel)Indications :Persistent insomnia TAKE 1 TABLET BY MOUTH 1 TO 3 HOURS BEFORE BEDTIME 90 Tablet 1 04/04/2023 Active Nitrofurantoin Monohyd Macro 100 MG Oral Capsule (Macrobid) Take 1 Capsule by mouth at bedtime. With food. Start after completing Cefdnir. 30 Capsule 0 04/10/2023 Active Additional Information Patient not taking.Reported on 06/21/2023 traMADol HCl 50 MG Oral Tablet (Ultram)Indications: Primary osteoarthritis involving multiple joints,Chronic bilateral low back pain without sciatica Take 1 Tablet by mouth in the morning and 1 Tablet before bedtime. 60 Tablet 0 07/12/2023 Active documented as of this encounter (statuses as of 07/27/2023) Active Problems Problem Noted Date Diagnosed Date [...] as of this encounter (statuses as of 07/27/2023) Resolved Problems Problem Noted Date Diagnosed Date [...] as of this encounter (statuses as of 07/27/2023) Immunizations Name Administration Dates Next Due Diptheria/Tetanus [...] encounter Miscellaneous Notes * Telephone Encounter - Teri Rascon CRNP - 07/27/2023 2:29 PM EST OK to keep appts at [facility]. Please call with message * Telephone Encounter - Tata Bonilla OSA - 07/27/2023 1:29 PM EST Pt appt with Dr. Valladares was cancelled for August 29 at [facility] and moved to 08/11 at [place]. Pt wished to have the appt at [facility] and it was moved back. They wanted to make sure there was not a reason that it had to be at [place]. Please contact pt daughter Evelyne to let them know if its ok to keep it at [facility]. [phone] documented in this encounter Plan of Treatment Upcoming Encounters Date Type Department Care Team (Late st Contact Info) Description 08/30/2023 1:10 PM EDT Office Visit Vascular Surgery, [facility] [address] [facility] [place] [address] Anderson Valladares MD [address] [place] [facility] [place] [address] 12/20/2023 1:30 PM EDT Office Visit Urology, [facility] [address] [facility] [place] [address] Mic Meek MD [address] [facility] [address] [place] [address] Health Maintenance Due Date Last Done Comments COVID-19 Vaccine (#1) 03/18/1941 DXA Scan 11/30/2015 11/29/2012, 10/2009, 04/23/2010, Additional history exists DISCUSS TOBACCO CESSATION (REFER TO SMARTSET #3291) 12/13/2015 12/12/2014 (Discussed) Depression Screening 02/22/2023 02/22/2022, 01/20/2016, 12/12/2014 (Discussed) GFR 06/30/2023 12/28/2022, 02/18, 02/15/2022, Additional history exists DTaP,Tdap,and Td Vaccines (2 - Td or Tdap) 12/04/2023 12/03/2013, 03/25/2008, 11/18/1995 CKD HGB USE SMARTSET 08718 12/29/202312/28, 03/17/2022, 08/06/2021, Additional history exists Albumin/Creatinine Ratio 06/15/2024 023, 08/24/2020, 09/14/2018, Additional history exists CKD PHOS USE SMARTSET 18813 07/10/202406/20, 06/15/2023, 03/17/2022, Additional history exists Pneumococcal [...] Not on filedocumented as of this encounter Advance Directives Latest Code Status [...] Advance Directives occurred with: Patient Care Teams Double Back Operator Relationship Specialty Start Date End Date Albert Clancy MD [address] [place] [address] PCP - General Family Medicine 10/25/17 documented as of this encounter
--- OUTSIDE RECORDS SUMMARY | 2023-11-07 05:11 | External Medical Summary | Summary of Care ---
Author Name Unknown Organization [facility] Address [address] [place] [address] Phone [phone] Care Team Providers Care Security Developer Name Role Phone Markus Clancy MD Primary Care Provider [phone] Reason for Visit * Reason Onset Date Comments Medication Refill 08/14/2023 Encounter Details Date Type Department Care Team (Late st Contact Info) Description 08/14/2023 Refill [facility] [address] [place] [address] Markus Clancy MD [address], [place] [id number] Primary osteoarthritis involving multiple joints; Chronic bilateral low back pain without sciatica Allergies Active Allergy Reactions Criticality Noted Date Comments Omeprazole Rash Medium 09/04/2018 Pravastatin Hives,Itching,Rash 05/14/2012 documented as of this encounter (statuses as of 08/15/2023) Medications Medication Sig Dispensed Refills Start Date [...] 06/21/2023 traMADol HCl 50 MG Oral Tablet (Ultram)Indications :Primary osteoarthritis involving multiple joints,Chronic bilateral low back pain without sciatica Take 1 Tablet by mouth in the morning and 1 Tablet before bedtime. 60 Tablet 0 08/15/2023 Active traMADol HCl 50 MG Oral Tablet (Ultram)Indications :Primary osteoarthritis involving multiple joints,Chronic bilateral low back pain without sciatica Take 1 Tablet by mouth in the morning and 1 Tablet before bedtime. 60 Tablet 0 07/12/2023 4 Discontinu ed(Refill) documented as of this encounter (statuses as of 08/15/2023) Active Problems Problem Noted Date Diagnosed Date [...] as of this encounter (statuses as of 08/15/2023) Resolved Problems Problem Noted Date Diagnosed Date [...] 12/31/2009 04/23/2010 HISTORY OF TOBACCO USE, QUIT 10/2612/31/200910/20/2010 Dyslipidemia, goal LDL below 100 06/03/2009 11/02/2011 [...] 03/19 GENERAL OSTEOARTHROSIS 05/14 Tobacco use disorder 11/05/2 010 FAM HX-DIABETES MELLITUS Family history of other card iovascular diseases 07/21/2015 Overview: ICD-10 update of inactive term 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 Authorizing Provider: MARKUS CLANCY * Telephone Encounter - Felisa Quiroz [facility] - 08/15/2023 10:02 AM ESTPending Prescriptions: Disp Refills traMADol HCl 50 MG Oral Tablet (Ultram) 60 Tab*0 Sig: Take 1 Tablet by mouth in the morning and 1 Tablet before bedtime. * Telephone Encounter - Felisa Quiroz [facility] - 08/15/2023 9:59 AM EST I have reviewed the patients controlled substance dispensing history in the Prescription Drug Monitoring Program in compliance with the [facility] regulations before prescribing a controlled substance. PDMP checked on 08/15/2023. Pending Prescriptions: Disp Refills traMADol HCl 50 MG Oral Tablet (Ultram) 60 Tab*0 Sig: Take 1 Tablet by mouth in the morning and 1 Tablet before bedtime. Last Visit: 04/05/2023 (in office), Visit date not found (telemedicine) Next Visit: Visit date not found Date medication was last filled: 07/13/23 Date medication is due for refill: 08/11/23 Pharmacy: [id number] [facility] Is this request for a controlled substance? Yes and Urine Drug Screen Not completed Toxicology results: No results found for this or any previous visit. Please approve if appropriate. Thanks, Felisa Quiroz Clinical Pharmacist [facility] (Formerly [facility]) [phone] 08/15/2023, 9:59 AM * Telephone Encounter - Sandra Downey CPhT - 08/14/2023 9:49 AM EST Did you pend patient's preferred pharmacy and medication before forwarding?yes Pharmacy: [id number] [facility] Pending Prescriptions: Disp Refills traMADol HCl 50 [...] appointment Last date the medication was ordered: 07/12/2023 Is this request for a controlled substance?Yes, What was the last refill date 07/12/2023 w/ [id number] and dosage 50 and Urine Drug Screen Not completed Urine [...] 1:10 PM EDT Office Visit Vascular Surgery, [facility] [address] [facility] [place] [address] Anderson Valladares MD [address] [place] [address] 02/20/2024 3:15 PM EDT Office Visit Urology, [facility] [address] [facility] [place] [address] Mic Meek MD [address] [facility] [address] [place] [address] Health Maintenance Due Date Last Done Comments DXA Scan 11/30/2015 11/29/2012, 10/2009, 04/23/2010, Additional history exists DISCUSS TOBACCO CESSATION (REFER TO SMARTSET #3291) 12/13/2015 12/12/2014 (Discussed) COVID-19 Vaccine ( season) 2023 Depression Screening 02/22/2023 02/22/2022, 01/20/2016, 12/12/2014 (Discussed) GFR 06/30/2023 12/28/2022, 02/18, 02/15/2022, Additional history exists DTaP,Tdap,and Td Vaccines (2 - Td or Tdap) 12/04/2023 12/03/2013, 03/25/2008, 11/18/1995 CKD HGB USE SMARTSET 38982 12/29/202312/28, 03/17/2022, 08/06/2021, Additional history exists Albumin/Creatinine Ratio 06/15/2024 023, 08/24/2020, 09/14/2018, Additional history exists CKD PHOS USE SMARTSET 23149 07/10/202406/20, 06/15/2023, 03/17/2022, Additional history exists Pneumococcal [...] Advance Directives occurred with: Patient Care Teams Security Developer Relationship Specialty Start Date End Date Markus Clancy MD [address] [place] [address] PCP - General Family Medicine 10/25/17 documented as of this encounter
--- OUTSIDE RECORDS SUMMARY | 2023-11-07 05:11 | External Medical Summary | Summary of Care ---
Author Name Unknown Organization [facility] Address [address] [place] [address] Phone [phone] Care Team Providers Care Home Specialist Name Role Phone Albert Clancy MD Primary Care Provider [phone] Reason for Visit * Reason Onset Date Comments STAIR [facility] 08/30/2023 Encounter Details Date Type Department Care Team ([facility] st Contact Info) Description 08/30/2023 Telephone ST[facility]IR [facility] [address] [place] [address] Program, Stair [address] [place] [address] STAIR [facility] Allergies Active Allergy Reactions Criticality Noted Date Comments Omeprazole Rash Medium 09/04/2018 Pravastatin Hives,Itching,Rash 05/14/2012 documented as of this encounter (statuses as of 08/30/2023) Medications Medication Sig Dispensed Refills Start Date [...] Persistent insomnia TAKE 1 TABLET BY MOUTH 1 TO 3 HOURS BEFORE BEDTIME 90 Tablet 1 04/04/2023 Active traMADol HCl 50 MG Oral Tablet (Ultram)Indications:P rimary osteoarthritis involving multiple joints,Chronic bilateral low back pain without sciatica Take 1 Tablet by mouth in the morning and 1 Tablet before bedtime. 60 Tablet 0 08/15/2023 Active Vitamin D-3 25 MCG (1000 UT) Oral Capsule Take 1 Capsule by mouth in the morning. 0 Active Vitamin B-12 1000 MCG Oral Tablet (Cyanocobalamin) Take 1 Tablet by mouth in the morning. 0 Active documented as of this encounter (statuses as of 08/30/2023) Active Problems Problem Noted Date Diagnosed Date [...] as of this encounter (statuses as of 08/30/2023) Resolved Problems Problem Noted Date Diagnosed Date [...] as of this encounter (statuses as of 08/30/2023) Immunizations Name Administration Dates Next Due Pneumococcal [...] encounter Miscellaneous Notes * Telephone Encounter - Catherine Astudillo LPN - 08/30/2023 3:50 PM EDT AAA - Clinical Summary Name: Lul Bird Jr. Age: [age] year old AAA Review: Follow-up Follow-up Encounter Provider: Anderson Valladares MD Patient Identified by: Problem List Report Imaging Interpretation: Duplex Type of Result: AAA 3.0 to 3.9 cm AAA Care Plan Imaging Recommendation: Aortic Duplex - details below Details: in 2 years AAA Care Plan Visit Recommendation: Return visit in Vascular Surgery Details: in 2 years Next steps: No action needed at this time. Patient was seen by vascular surgery today. Next clinic visit with testing prior is due in 2 years. Will continue to track. Time spent: 5 minutes Catherine Astudillo LPN Coordinator STAIR (System to Track Abnormalities of Importance Reliably) [facility] AORTIC DUPLEX EVAL-COMPLETE 07/24/2023 Narrative VASCULAR LAB RESULTS DATE OF EXAM: 07/24/23 PRESENTING CONDITIONS: 3 cm AAA This is an interpretation of an exam performed at [facility]. PHYSICIAN REPORT: Abdominal Aorta Duplex Examination. Immediately before proceeding with the vascular lab procedure reported below, the identity of the patient, the correct exam and the correct procedural site were verified. Castillo scale, color flow and spectral doppler were performed for this examination. Spectral Doppler demonstrates evidence of normal waveforms of the abdominal aorta. Peak systolic velocity measurements of the aorta are 97.9 centimeters per second. The maximum diameter of the proximal abdominal aorta measures 2.2 centimeters by 2.2 centimeters. The maximum diameter of the mid abdominal aorta measures 2.3 centimeters by 2.3 centimeters. The maximum diameter of the distal abdominal aorta measures 3.0 centimeters by 3.0 centimeters. The maximum diameter of the proximal right common iliac artery measures 1.1 centimeters by 1.1 centimeters. The maximum diameter of the proximal left common iliac artery measures 1.1 centimeters by 1.1 centimeters. Impression : There is evidence of a 3.0 cm abdominal aortic aneurysm. Color Doppler imaging demonstrates flow consistent with a patent lumen at and distal to the aortic aneurysm. documented in this encounter Plan of Treatment Upcoming Encounters Date Type Department Care Team (Late st Contact Info) Description 02/20/2024 3:15 PM EDT Office Visit Urology, [facility] [address] [facility] [place] [address] Mic Meek MD [address] [place] [address] Health Maintenance [...] 12/03/2013, 03/25/2008, 11/18/1995 CKD HGB USE SMARTSET 63300 12/29/202312/28, 03/17/2022, 08/06/2021, Additional history exists Albumin/Creatinine Ratio 06/15/2024 023, 08/24/2020, 09/14/2018, Additional history exists CKD PHOS USE SMARTSET 77209 07/10/202406/20, 06/15/2023, 03/17/2022, Additional history exists Pneumococcal [...] Advance Directives occurred with: Patient Care Teams Home Specialist Relationship Specialty Start Date End Date Albert Clancy MD [address] [place] [address] PCP - General Family Medicine 10/25/17 documented as of this encounter
--- OUTSIDE RECORDS SUMMARY | 2023-11-07 05:11 | External Medical Summary | Summary of Care ---
Author Name Unknown Organization [facility] Address [address] [place] [address] Phone [phone] Care Team Providers Care Advertising Sales Representative Name Role Phone Albert Clancy MD Primary Care Provider [phone] Reason for Visit * Reason Comments Follow Up Encounter Details Date Type Department Care Team ([facility] st Contact Info) Description 08/30/2023 1:10 PM EDT Office Visit Vascular Surgery, [facility] [address] [place] [address] Anderson Valladares MD [address] [place] [address] Infrarenal abdominal aortic aneurysm (AAA) without rupture (HCC)*; PVD (peripheral vascular disease) (HCC); Tobacco use disorder; Chronic kidney disease, stage 3a (HCC); Carotid stenosis, non-symptomatic, bilateral; Dyslipidemia, goal LDL below 70; Gastroesophageal reflux disease without esophagitis; Left carotid bruit Allergies Active Allergy Reactions Criticality Noted Date [...] by mouth in the morning. 0 Active Amoxicillin-Pot Clavulanate 875-125 MG Oral Tablet Take 1 Tablet by mouth in the morning and 1 Tablet before bedtime. 0 4 Discontinu ed(Medicat ion List Clean Up) Nitrofurantoin Monohyd Macro 100 MG Oral Capsule (Macrobid) Take 1 Capsule by mouth at bedtime. With food. Start after completing Cefdnir. 30 Capsule 0 04/10/2023 4 Discontinu ed(Medicat ion List Clean Up) documented as of this encounter (statuses as [...] Day Cigarettes 1 54 Smokeless Tobacco: Never Tobacco Cessation:Ready to Q uit: No; Counseling Given: No Comments:08/30/23 1 pack daily, declined pamphlet Alcohol Use Standard Drinks/Week Comments [...] on file documented as of this encounter Last Filed Vital Signs Vital Sign Reading Time Taken Comments Blood Pressure 126/74 08/30/2023 1:19 PM EDT Pulse 88 08/30/2023 1:19 PM EDT Temperature 36.2 C (97.1 F) 08/30/2023 1:19 PM ED T Respiratory Rate - - Oxygen Saturation - - Inhaled Oxygen Concentration - - Weight 73.7 kg (162 lb 6.4 oz) 08/30/2023 1:19 P M EDT Height - - Body Mass Index 23.3 04/05/2023 4:13 PM EDT documented in this encounter Progress Notes * Rui Dimas PA-C - 08/30/2023 1:10 PM EDT Date of Service: 08/30/2023 1:06 PM Lul Bird Jr. is a 82 year old male. Patient being seen in consultation at the request of Albert Clancy MD Chief Complaint: Here for f/u annual eval of AAA and carotid artery disease HPI: Smoker with dyslipidemia and CKD. CAROTID DISEASE: Patient denies recent TIA, recent stroke and recent amaurosis fugax. 2022 Carotid duplex exam at [facility] identified the right internal carotid with less than 50% stenosis and the left internal carotid with less than 50% stenosis. ABDOMINAL AORTIC ANEURYSM: Patient denies any symptoms related to AAA. Patient denies new abdominal pain, flank pain and back pain. FAMILY HISTORY: No family history of aortic aneurysms. Current Outpatient Medications Medication Sig Dispense Refill atorvaSTATin (LIPITOR) 40 MG Tablet Take 1 Tab by mouth daily. (Patient taking differently: Take 1 Tablet by mouth at bedtime.) 90 Tab 3 Acetaminophen ER 650 MG Oral Tablet Extended Release Take 1 Tablet by mouth every 8 hours as neededfor Pain, Mild. 30 Tab 0 Multi Vitamin Daily Oral Tablet Take by mouth. Aspirin 81 MG Oral Tablet Chewable Take 1 Tablet by mouth in the morning. Finasteride 5 MG Oral Tablet (Proscar) Take 1 Tablet by mouth in the morning. 90 Tablet 3 Amoxicillin-Pot Clavulanate 875-125 MG Oral Tablet Take 1 Tablet by mouth in the morning and 1 Tablet before bedtime. (Patient not taking: Reported on 04/05/2023) traZODone HCl 50 MG Oral Tablet (Desyrel) TAKE 1 TABLET BY MOUTH 1 TO 3 HOURS BEFORE BEDTIME 90 Tablet 1 Nitrofurantoin Monohyd Macro 100 MG Oral Capsule (Macrobid) Take 1 Capsule by mouth at bedtime. With food. Start after completing Cefdnir. (Patient not taking: Reported on 06/21/2023) 30 Capsule 0 traMADol HCl 50 MG Oral Tablet (Ultram) Take 1 Tablet by mouth in the morning and 1 Tablet before bedtime. 60 Tablet 0 No current facility-administered medications for this visit. Review of patient's allergies indicates: Allergen Reactions Omeprazole Rash Pravastatin Hives, Itching and Rash Patient Active Problem List Diagnosis Code Chronic bilateral low back pain without sciatica M54.50, G89.29 Impotence of organic origin N52.9 PVD (peripheral vascular disease) ([facility]) I73.9 Gastroesophageal reflux disease without esophagitis K21.9 Tobacco use disorder F17.200 Primary osteoarthritis involving multiple joints M15.9 BPH with obstruction/lower urinary tract symptoms N40.1, N13.8 Dyslipidemia, goal LDL below 70 E78.5 Multiple lipomas D17.9 Pulmonary nodules R91.8 MEDICATION USE AGREEMENT [id number] Abdominal aortic aneurysm (AAA) without rupture ([facility]) I71.40 Chronic kidney disease, stage 3a ([facility]) N18.31 Carotid stenosis, non-symptomatic, bilateral I65.23 Bladder stones N21.0 Past Medical History: Diagnosis Date Allergic rhinitis Benign neoplasm of colon 10/24/06 repeat in 3 years BPH with obstruction/lower urinary tract symptoms Calculus of kidney Diverticulosis of colon 01/21/10 Dyslipidemia, goal LDL below 70 Esophageal reflux Fam hx-cardiovas dis NEC Family history of diabetes mellitus Generalized osteoarthritis History of vertebral fracture 09/2008 Insomnia, unspecified Kidney disease, chronic, stage III (GFR 30-59 ml/min) (HCC) Lipoma of other specified sites Pectus excavatum Pulmonary nodules 08/[address] in 6 months Senile osteoporosis Tobacco use disorder Past Surgical History: Procedure Laterality Date ANESTHESIA, LITHOTRIPSY, W/BATH COLONOSCOPY W/ LESION REMOVAL, SNARE 10/24/06 repeat in 3 years path- prob hyperplastic COLORECTAL CANCER SCREEN; COLON 01/20/10 diverticulosis- repeat in 10 years EXPLORATION OF ABDOMEN sbo INFORMATION 07/2016 Dr Sierra- left shoulder surgeryu-=- rotater cuff tear PROSTATE, LASER VAPORIZATION N/A 02/06/2023 LASER VAPORIZATION PROSTATE performed by Mic Meek MD at [facility] REMOVAL OF PROSTATE (TURP) N/A 02/06/2023 TRANSURETHRAL RESECTION PROSTATE ELECTROSURGICAL performed by Mic Meek MD at OR [facility] REMOVE CATARACT, INSERT LENS PROSTH Bilateral 2018 REMOVE LARGE BLADDER STONE, COMPLIC N/A 02/06/2023 LITHOLAPAXY COMPLICATED performed by Mic Meek MD at OR [facility] REP ECTROPION;EXT TARSAL ST Left 10/15/2018 Dr. Bob REPAIR INITIAL INGUINAL HERNIA REDUCIBLE AGE 5 OR MORE 11/09/10 Excision lipomata cord and direct and indirect right inguinal hernia (pantaloon hernia and lipomatacord) 11/09/10 Dr. Perez at [facility] Family History Problem Relation Age of Onset Diabetes Mother Hypertension Mother Cancer Father THROAT Cancer Brother CA MOUTH NON SMOKER 47 [place] 99 Diabetes Uncle (Unspecified) Diabetes Uncle (Unspecified) Diabetes Grandmother (Maternal) Diabetes Aunt (Unspecified) Social History Socioeconomic History Marital status: Spouse name: Not on file Number of children: Not on file Years of education: Not on file Highest education level: Not on file Occupational History Not on file Tobacco Use Smoking status: Every Day Current packs/day: 1.00 Average packs/day: 1 pack/day for 54.0 years (54.0 ttl pk-yrs) Types: Cigarettes Smokeless tobacco: Never Vaping Use Vaping Use: Never used Substance and Sexual Activity Alcohol use: Yes Comment: rare Drug use: No Comment: coffee- quite a bit Sexual activity: Yes Partners: Female Comment: no problems Other Topics Concern Not on file Social History 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, takes 9 hours to mow [place], each winter camping, little hunting - 10/06[birth year]61 4 children 8 gc 4 ggc no pets Social Determinants of Health Financial Resource Strain: Not on file Food Insecurity: No Food Insecurity (03/06/2023) Hunger Vital Sign Worried About Running Out of Food in the Last Year: Never true Ran Out of Food in the Last Year: Never true Transportation Needs: Not on file Physical Activity: Not on file Stress: Not on file Social Connections: Not on file Intimate Partner Violence: Not on file Housing Stability: Not on file COMPLETE REVIEW OF SYSTEMS: Cardiovascular: Negative for chest pain, shortness of breath, palpitations, angina or OH Neurological: Negative for stroke, TIA, amaurosis fugax All other systems negative except for those noted above and in the history of present illness (HPI). GENERAL MULTI-SYSTEM PHYSICAL EXAM: Vital Signs: There were no vitals taken for this visit. GENERAL: Normal grooming habits, no acute distress and appears stated age. RESPIRATORY: respiratory effort normal CARDIOVASCULAR: no edema and no varicosities. GASTROINTESTINAL: no tenderness, protuberant and abdominal aorta not palpable. SKIN: no ulcers, no rash, no induration, capillary refill normal and no dependent rubor. PSYCHIATRIC: orientation to time, place and person normal and recent and remote memory normal. EYES: conjunctivae normal, eye lids normal, pupils normal and irises normal. NEUROLOGIC: Cranial nerves intact, Motor function intact and Sensory exam intact PULSE SCALE: Carotid Right:----Bruit: No Left:----Bruit: No Radial Right: 3 Left: 3 Femoral Right: 3 Left: 3 Popliteal Right: 3 Left: 3 Dorsalis Pedis Right: 3 Left: 0 Posterior Tibial Right: 3 Left: 3 PULSE SCALE: 4=Aneurysmal; 3=Normal; 2=Diminished; 1=Barely Palpable; 0=Absent DIAGNOSTIC STUDIES: 07/24/23 Abd Aortic Duplex: 3.0 cm AAA, distal 07/24/23 BLE Art Duplex: No Fem/Pop aneurysms The above diagnostic images were directly visualized and independently interpreted by me on 08/30/2023 with results as above 08/10/22 Aortic Duplex: Prox 2.2 cm, Mid 2.8 cm, Dist 3 cm, RCIA 0.9 cm, LCIA 1.1 cm 08/10/22 Carotid Duplex: PRITESH 77/33, LICA 88/40 05/10/21: Aortic Duplex showed 3.1 cm AAA LABS: Creatinine (mg/dL) Date Value 12/28/2022 1.4 (H) 09/14/2018 1.2 LDL (CALCULATED) (MG/DL) Date Value 04/19/1996 235. (HH) LDL Cholesterol (mg/dL) Date Value 02/15/2022 66 09/14/2018 69 TRIGLYCERIDES (MG/DL) Date Value 04/19/1996 230 Triglycerides (mg/dL) Date Value 02/15/2022 123 09/14/2018 62 HGB Date Value 12/28/2022 14.2 g/dL 08/27/2018 13.8 g/dL (L) 04/02/1996 14.6 GM/DL The above clinical lab tests were reviewed by me on 08/30/23 IMPRESSIONS: Asymptomatic 3.0 cm AAA No Fem/Pop aneurysms Bilateral <50% carotid artery stenosis, per 2022 duplex. Smoker Dyslipidemia Lipitor 40 mg CKD III PLAN: The patient was counseled regarding the pathophysiology and natural history of abdominal aortic aneurysms, as well as the signs of rupture and the need to initiate emergency medical attention in thatsituation. Size of AAA well below threshold for surgery, ~ 5.5 cm for males Doubt AAA will ever grow enough to become surgical size in this patient's life time The patient was counseled regarding the pathophysiology and natural history of carotid disease, as well as the symptoms of CVA/TIA/amaurosis fugax. % of stenosis unremarkable on 2022 carotid duplex Will not routinely re-image Continue 81 mg asa for arteriosclerosis Continue 40 mg atorvastatin for dyslipidemia Patient counseled regarding smoking cessation. RTC in 2 yrs at [facility] The patient was seen and examined with Leonid Valladares MD. Rui Dimas PA-C I have reviewed the advanced practitioner's documentation on the date of service referenced in note, and I agree with, and take responsibility for the plan of care. Mr. Bird is here for surveillance of AAA. Stable 3 cm AAA No fem/pop aneurysm F/U 2 years. Anderson Valladares MD Vascular Surgeon Department of Vascular Surgery [facility] documented in this encounter Nursing Notes * Coty Dai LPN - 08/30/2023 1:23 PM EDT Reviewed the option of transferring scripts to [facility] pharmacy with patient and / or family. Coty Dai LPN documented in this encounter Plan of Treatment Upcoming Encounters Date Type Department Care Team (Late st Contact Info) Description 02/20/2024 3:15 PM EDT Office Visit Urology, [facility] [address] [facility] [place] [address] Mic Meek MD [address] [place] [address] [place] [address] Scheduled Orders Name Type Priority Associated Diagnoses Orde r Schedule VASC AORTIC DUPLEX EVAL-COMPLETE Medical Imaging Routine Infrarenal abdominal aortic aneurysm (AAA) without rupture (HCC) PVD (peripheral vascular disease) (HCC) Tobacco use disorder Chronic kidney disease, stage 3a (HCC) Carotid stenosis, non-symptomatic, bilateral Dyslipidemia, goal LDL below 70 Gastroesophageal reflux disease without esophagitis Left carotid bruit Ordered: 08/30/2023 Health Maintenance Due Date Last Done Comments DXA Scan 11/30/2015 11/29/2012, 10/2009, 04/23/2010, Additional history exists DISCUSS TOBACCO CESSATION (REFER TO SMARTSET #3291) 12/13/2015 12/12/2014 (Discussed) COVID-19 Vaccine ( season) 2023 Depression Screening 02/22/2023 02/22/2022, 01/20/2016, 12/12/2014 (Discussed) GFR 06/30/2023 12/28/2022, 02/18, 02/15/2022, Additional history exists DTaP,Tdap,and Td Vaccines (2 - Td or Tdap) 12/04/2023 12/03/2013, 03/25/2008, 11/18/1995 CKD HGB USE SMARTSET 27557 12/29/202312/28, 03/17/2022, 08/06/2021, Additional history exists Albumin/Creatinine Ratio 06/15/2024 023, 08/24/2020, 09/14/2018, Additional history exists CKD PHOS USE SMARTSET 77942 07/10/202406/20, 06/15/2023, 03/17/2022, Additional history exists Pneumococcal [...] as of this encounter Visit Diagnoses Diagnosis Infrarenal abdominal aortic aneurysm (AAA) without rupture (HCC)- Primary PVD (peripheral vascular disease) (HCC) Peripheral vascular disease, unspecified Tobacco use disorder Chronic kidney disease, stage 3a (HCC) Carotid stenosis, non-symptomatic, bilateral Dyslipidemia, goal LDL below 70 Other and unspecified hyperlipidemia Gastroesophageal reflux disease without esophagitis Esophageal reflux Left carotid bruit Other symptoms involving cardiovascular system documented in this encounter Advance Directives Latest [...] Code 02/06/2023 11:24 AM 02/06/2023 3:34 PM Thi s order reflects the patients wishes and were consensually agreed upon. Question Answer Comments Discussion of Advance Directives occurred with: Patient Care Teams Advertising Sales Representative Relationship Specialty Start Date End Date Albert Clancy MD [address] [place] [address] PCP - General Family Medicine 10/25/17 documented as of this encounter
--- OUTSIDE RECORDS SUMMARY | 2023-11-07 05:11 | External Medical Summary | Summary of Care ---
Author Name Unknown Organization [facility] Address [address] [place] [address] Phone [phone] Care Team Providers Care Tank Officer Name Role Phone Albert Clancy MD Primary Care Provider [phone] Reason for Visit * Reason Onset Date Comments Appointment 07/27/2023 Encounter Details Date Type Department Care Team ([facility] st Contact Info) Description 07/27/2023 Telephone Vascular Surg [facility] [address] [place] [address] Services, Scheduling [address] [place] [address] Appointment Allergies Active Allergy Reactions Criticality Noted [...] encounter Miscellaneous Notes * Telephone Encounter - Wilbur Howard OSA - 07/27/2023 2:42 PM EST Called Evelyne and relayed the message She thanked me for the call * Telephone Encounter - Teri Rascon CRNP - 07/27/2023 2:29 PM EST OK to keep appts at [facility]. Please call with message * Telephone Encounter - Tata Bonilla OSA - 07/27/2023 1:29 PM EST Pt appt with Dr. Valladares was cancelled for August 29 at [facility] and moved to 08/11 at [place]. Pt wished to have the appt at [facility] and it was moved back. They wanted to make sure there was not a reason that it had to be at [place]. Please contact pt daughter Evelyne to let them know if its ok to keep it at [facility]. [phone] documented in this encounter Plan of Treatment Upcoming Encounters Date Type Department Care Team (Late st Contact Info) Description 08/30/2023 1:10 PM EDT Office Visit Vascular Surgery, [facility] [address] [facility] [place] [address] Anderson Valladares MD [address] [facility] [place] [address] 12/20/2023 1:30 PM EDT Office Visit Urology, [facility] [address] [facility] [place] [address] Mic Meek MD [address] [facility] [place] [address] [place] [address] Health Maintenance [...] 12/03/2013, 03/25/2008, 11/18/1995 CKD HGB USE SMARTSET 56025 12/29/202312/28, 03/17/2022, 08/06/2021, Additional history exists Albumin/Creatinine Ratio 06/15/2024 023, 08/24/2020, 09/14/2018, Additional history exists CKD PHOS USE SMARTSET 95290 07/10/202406/20, 06/15/2023, 03/17/2022, Additional history exists Pneumococcal [...] Advance Directives occurred with: Patient Care Teams Tank Officer Relationship Specialty Start Date End Date Albert Clancy MD [address] [facility] [place] [address] PCP - General Family Medicine 10/25/17 documented as of this encounter
--- OUTSIDE RECORDS SUMMARY | 2023-11-07 05:12 | External Medical Summary | Summary of Care ---
Author Name Unknown Organization [facility] Address [address] [place] [address] Phone [phone] Care Team Providers Care Folder Seamer Automatic Name Role Phone Albert Clancy MD Primary Care Provider [phone] Reason for Visit * Reason Comments Outpatient Testing Encounter Details Date Type Department Care Team (Late st Contact Info) Description 07/10/2023 10:20 AM EST Laboratory Laboratory, [place] [address] [place] [address] [place], Laboratory [address] [place] [address] [employer] Other*[id number]; Low blood phosphate Allergies Active Allergy Reactions Criticality Noted Date Comments Omeprazole Rash Medium 09/04/2018 Pravastatin Hives,Itching,Rash 05/14/2012 documented as of this encounter (statuses as of 07/10/2023) Medications Medication Sig Dispensed Refills Start Date [...] Tablet before bedtime. 60 Tablet 0 06/07/2023 Active documented as of this encounter (statuses as of 07/10/2023) Active Problems Problem Noted Date Diagnosed Date [...] as of this encounter (statuses as of 07/10/2023) Resolved Problems Problem Noted Date Diagnosed Date [...] as of this encounter (statuses as of 07/10/2023) Immunizations Name Administration Dates Next Due Pneumococcal [...] on file documented as of this encounter Plan of Treatment Upcoming Encounters Date Type Department Care Team (Late st Contact Info) Description 07/24/2023 8:30 AM EST Imaging Vascular Lab, [facility] [address] [facility] [place] [address] 07/24/2023 9:30 AM EST Imaging Vascular Lab, [facility] [address] [facility] [place] [address] 08/11/2023 8:40 AM EST Office Visit Vascular Surg [facility] [address] [place] [address] Anderson Valladares MD [address] [place] [address] 12/20/2023 1:30 PM EDT Office Visit Urology, [facility] [address] [facility] [place] [address] Mic Meek MD [address] [facility] [address] [place] [address] Pending Results Name Type Priority Associated Diagnoses Date /Time MYCODE SUBSEQUENT ADULT Lab Routine [employer] Other*[id number] 07/10/2023 10:16 AM EST PHOSPHORUS Lab Routine Low blood phosphate 07/10/2023 10:16 AM EST CALCIUM Lab Routine Low blood phosphate 07/10/2023 10:16 AM EST 25-HYDROXY VITAMIN D Lab Routine Low blood phosphate 07/10/2023 10:16 AM EST MYCODE SST1 Lab Routine [employer] Other*[id number] 07/10/2023 10:16 AM EST MYCODE SST2 Lab Routine [employer] Other*[id number] 07/10/2023 10:16 AM EST Health Maintenance Due Date Last Done Comments COVID-19 Vaccine (#1) 03/18/1941 DXA Scan 11/30/2015 11/29/2012, 1110/2009, 04/23/2010, Additional history exists DISCUSS TOBACCO CESSATION (REFER TO SMARTSET #3291) 12/13/2015 12/12/2014 (Discussed) Depression Screening 02/22/2023 02/22/2022, 01/20/2016, 12/12/2014 (Discussed) GFR 06/30/2023 12/28/2022, 02/18, 02/15/2022, Additional history exists DTaP,Tdap,and Td Vaccines (2 - Td or Tdap) 12/04/2023 12/03/2013, 03/25/2008, 11/18/1995 CKD HGB USE SMARTSET 85024 12/29/202312/28, 03/17/2022, 08/06/2021, Additional history exists Albumin/Creatinine Ratio 06/15/2024 023, 08/24/2020, 09/14/2018, Additional history exists CKD PHOS USE SMARTSET 70691 06/15/202405/20, 03/17/2022, 08/06/2021, Additional history exists Pneumococcal Vaccine: 65+ Years [...] as of this encounter Visit Diagnoses Diagnosis [employer] Other*[id number] Low blood phosphate Disorders of phosphorus metabolism documented in this [...] Advance Directives occurred with: Patient Care Teams Folder Seamer Automatic Relationship Specialty Start Date End Date Albert Clancy MD [address] [place] [address] PCP - General Family Medicine 10/25/17 documented as of this encounter
--- OUTSIDE RECORDS SUMMARY | 2023-11-07 05:12 | External Medical Summary | Summary of Care ---
Author Name Unknown Organization [facility] Address [address] [place] [address] Phone [phone] Care Team Providers Care Forming Process Line Worker Name Role Phone Albert Clancy MD Primary Care Provider [phone] Encounter Details Date Type Department Care Team (Late st Contact Info) Description 07/13/2023 Orders Only PATIENT PORTAL DO NOT DELETE THIS DEPT USED BY [place] [address] Allergies Active Allergy Reactions Criticality Noted Date Comments Omeprazole Rash Medium 09/04/2018 Pravastatin Hives,Itching,Rash 05/14/2012 documented as of this encounter (statuses as of 07/13/2023) Medications Medication Sig Dispensed Refills Start Date [...] as of this encounter (statuses as of 07/13/2023) Active Problems Problem Noted Date Diagnosed Date [...] as of this encounter (statuses as of 07/13/2023) Resolved Problems Problem Noted Date Diagnosed Date [...] as of this encounter (statuses as of 07/13/2023) Immunizations Name Administration Dates Next Due Pneumococcal [...] 07/24/2023 8:30 AM EST Imaging Vascular Lab, [facility] [address] [facility], [address] [place] [address] 07/24/2023 9:30 AM EST Imaging Vascular Lab, [facility] 2[address] [facility] [address] [place] [address] 08/11/2023 8:40 AM EST [facility] [address] [place] [address] Anderson Valladares MD [address] [place] [address] 12/20/2023 1:30 PM EDT Office Visit Urology, [facility] [address] [place] [place] [address] Mic Meek MD [address] [facility] [address] [place] [address] Health Maintenance Due Date Last Done Comments COVID-19 Vaccine (#1) 03/18/1941 DXA Scan 11/30/2015 11/29/2012, 10/2009, 04/23/2010, Additional history exists DISCUSS TOBACCO CESSATION (REFER TO SMARTSET #3291) 12/13/2015 12/12/2014 (Discussed) Depression Screening 02/22/2023 02/22/2022, 01/20/2016, 12/12/2014 (Discussed) GFR 06/30/2023 12/28/2022, 02/18, 02/15/2022, Additional history exists DTaP,Tdap,and Td Vaccines (2 - Td or Tdap) 12/04/2023 12/03/2013, 03/25/2008, 11/18/1995 CKD HGB USE SMARTSET 85759 12/29/202312/28, 03/17/2022, 08/06/2021, Additional history exists Albumin/Creatinine Ratio 06/15/2024 023, 08/24/2020, 09/14/2018, Additional history exists CKD PHOS USE SMARTSET 44109 07/10/202406/20, 06/15/2023, 03/17/2022, Additional history exists Pneumococcal [...] Advance Directives occurred with: Patient Care Teams Forming Process Line Worker Relationship Specialty Start Date End Date Albert Clancy MD [address] [place] [address] PCP - General Family Medicine 10/25/17 documented as of this encounter
--- OUTSIDE RECORDS SUMMARY | 2023-11-07 05:12 | External Medical Summary ---
Author Name Unknown Address Unknown Organization K01:LABORATORY [facility] [place] - [address] [place] [address] Laboratory Report Ordering Provider Test Date Status KIT APARICIONICOLAS 07/10/2023 10:16:25 Final Deficient: <20 ng/mL
Ins ufficient: 20-29 ng/mL
Recommended/Optimum:30-50 ng/mL

Vitamin D intoxication is rare. If suspicious of Vitamin D toxicity, evaluation of serum Calcium and PTH is recommended. Observation Date Value Abnormality Reference (Units ) Status 25-OH Vitamin D total 07/10/2023 10:16:25 47 >19 (ng/mL) Final Performing Location LABORATORY C - [address] [place] [address]
--- OUTSIDE RECORDS SUMMARY | 2023-11-07 05:12 | External Medical Summary ---
Author Name Unknown Address Unknown Organization K01:[facility]ATORY [facility] - [address] [place] [address] Laboratory Report Ordering Provider Test Date Status MARKUSKITNICOLAS 07/10/2023 10:16:25 Final Observation Date Value Abnormality Reference (Units ) Status Phosphate 07/10/2023 10:16:25 2.8 2.5-4.8 (m g/dL) Final Performing Location [facility] - [address] [place] [address]
--- OUTSIDE RECORDS SUMMARY | 2023-11-07 05:12 | External Medical Summary | Summary of Care ---
Author Name Unknown Organization [facility] Address [address] [place] [address] Phone [phone] Care Team Providers Care Hand Coper Name Role Phone Albert Clancy MD Primary Care Provider Reason for Visit * Reason Onset Date Comments Appointment 07/27/2023 Encounter Details Date Type Department Care Team ([facility] st Contact Info) Description 07/27/2023 Telephone Vascular Surg [facility] [address] [place] [address] Services, Scheduling [address] [place] [address] Appointment Allergies Active Allergy Reactions Criticality Noted [...] 07/27/2023) Immunizations Name Administration Dates Next Due Pneumococcal [...] encounter Miscellaneous Notes * Telephone Encounter - Tata Bonilla OSA - 07/27/2023 1:29 PM EST Pt appt with Dr. Valladares was cancelled for August 29 at [facility] and moved to 08/11 at [place]. Pt wished to have the appt at [facility] and it was moved back. They wanted to make sure there was not a reason that it had to be at [facility]. Please contact pt daughter Evelyne to let them know if its ok to keep it at [facility]. [phone] documented in this encounter Plan of Treatment Upcoming Encounters Date Type Department Care Team (Late st Contact Info) Description 08/30/2023 1:10 PM EDT Office Visit Vascular Surgery, [facility] [address] [facility] [place] [address] Anderson Valladares MD [address] [place] [address] 12/20/2023 1:30 PM EDT Office Visit Urology, [facility] [address] [facility] [place] [address] Mic Meke MD [address] [place] [address] Health Maintenance Due Date Last Done Comments COVID-19 Vaccine (#1) 03/18/1941 DXA Scan 11/30/2015 11/29/2012, 10/2009, 04/23/2010, Additional history exists DISCUSS TOBACCO CESSATION (REFER TO SMARTSET #3291) 12/13/2015 12/12/2014 (Discussed) Depression Screening 02/22/2023 02/22/2022, 01/20/2016, 12/12/2014 (Discussed) GFR 06/30/2023 12/28/2022, 02/18, 02/15/2022, Additional history exists DTaP,Tdap,and Td Vaccines (2 - Td or Tdap) 12/04/2023 12/03/2013, 03/25/2008, 11/18/1995 CKD HGB USE SMARTSET 50187 12/29/202312/28, 03/17/2022, 08/06/2021, Additional history exists Albumin/Creatinine Ratio 06/15/2024 023, 08/24/2020, 09/14/2018, Additional history exists CKD PHOS USE SMARTSET 79381 07/10/202406/20, 06/15/2023, 03/17/2022, Additional history exists Pneumococcal [...] Advance Directives occurred with: Patient Care Teams Hand Coper Relationship Specialty Start Date End Date Albert Clancy MD [address] [place] [facility] [place] [address] PCP - General Family Medicine 10/25/17 documented as of this encounter
--- OUTSIDE RECORDS SUMMARY | 2023-11-07 05:12 | External Medical Summary ---
Author Name Unknown Address Unknown Organization K01:LABORATORY [facility] [place] - [address] [place] [address] Laboratory Report Ordering Provider Test Date Status MARIA G APARICIOPASCUAL 07/10/2023 10:16:25 Final Observation Date Value Abnormality Reference (Units ) Status Calcium 07/10/2023 10:16:25 9.1 8.4-10.2 ( mg/dL) Final Performing Location [facility] - [address] [place] [address]
--- OUTSIDE RECORDS SUMMARY | 2023-11-07 05:12 | External Medical Summary | Summary of Care ---
Author Name Unknown Organization [facility] Address [address] [place] [address] Phone [phone] Care Team Providers Care Utility Worker Forge Name Role Phone Markus Clancy MD Primary Care Provider [phone] Reason for Referral * Medication Prior Authorization - Pending Review Specialty Diagnoses / Procedures Referred By Trinity t Referred To Contact Diagnoses Primary osteoarthritis involving multiple joints Chronic bilateral low back pain without sciatica Markus Clancy MD [address] [place] [address] Referral ID Status Reason Start Date Expiration Date V isits Requested Visits Authorized [id number] Pending Review 999 999 Reason for Visit * Reason Onset Date Comments Medication Refill 07/11/2023 Encounter Details Date Type Department Care Team (Late st Contact Info) Description 07/11/2023 Refill [facility] [address] [place] [address] Markus Clancy MD [address] [place] [address] Primary osteoarthritis involving multiple joints; Chronic bilateral low back pain without sciatica; Chronic kidney disease, stage 3a (HCC) Allergies Active Allergy Reactions Criticality Noted Date [...] before bedtime. 60 Tablet 0 07/12/2023 Active traMADol HCl 50 MG Oral Tablet [...] 07/13/2023) Immunizations Name Administration Dates Next Due Diptheria/Tetanus [...] Split, I IV3, With Preserve, Inj 05/30/2013,05/14/2012,05/05/2011,04/23,03/24/2009,03/25/2008,03/20/2007 ,03/28/2006,05/06/2003,04/22/2002,12/08/2000,06/05/2000,04/22/1999 TD, Preservative Free 03/25/2008 TDAP (age 8 [...] Telephone Encounter - Napoleon Easton CPhT - 07/13/2023 9:32 AM EST Patients insurance would like to inform the office that Tramadol is not requiring review because "no pa required paid claim at pharmacy" Thank you, Micah Easton (toolroom attendant) Tag Writer III [facility] ([facility]) (formerly Telepharmacy) 07/13/2023, 9:32 AM * Telephone Encounter - Markus Clancy MD - 07/12/2023 8:12 PM ESTSigned Prescriptions: Disp Refills traMADol HCl 50 MG Oral Tablet (Ultram) 60 Tab*0 Sig: Take 1 Tablet by mouth in the morning and 1 Tablet before bedtime. Authorizing Provider: MARKUS CLANCY * Telephone Encounter - Judy Romero [facility] - 07/12/2023 10:39 AM EST Pending Prescriptions: Disp Refills traMADol HCl 50 MG Oral Tablet (Ultram) 60 Tab*0 Sig: Take 1 Tablet by mouth in the morning and 1 Tablet before bedtime. * Telephone Encounter - Judy Romero [facility] - 07/12/2023 10:38 AM EST I have reviewed the patients controlled substance dispensing history in the Prescription Drug Monitoring Program in compliance with the [facility] regulations before prescribing a controlled substance. PDMP checked on 07/12/2023. Pending Prescriptions: Disp Refills traMADol HCl 50 MG Oral Tablet (Ultram) 60 Tab*0 Sig: Take 1 Tablet by mouth in the morning and 1 Tablet before bedtime. Last Visit: 04/05/2023 (in office), Visit date not found (telemedicine) Next Visit: Visit date not found Date medication was last filled: 06/12 Date medication is due for refill: 07/11 Pharmacy: [id number] [address] [facility] Is this request for a controlled substance? Yes and Urine Drug Screen Not completed Toxicology results: No results found for this or any previous visit. Please approve if appropriate. Thanks, Judy Romero, PharmD Clinical Pharmacist [facility] ([facility]) (formerly Telepharmacy) [phone] 07/12/2023,10:38 AM * Telephone Encounter - Marah Ruelas reed or wind instrument repairer - 07/11/2023 11:48 AM EST Did you pend patient's preferred pharmacy and medication before forwarding?yes Pharmacy: [id number] [address] [facility] Pending Prescriptions: Disp Refills traMADol HCl [...] appointment Last date the medication was ordered: 06/07/23 Is this request for a controlled substance?Yes, What was the last refill date 06/07/23 w/ quantity 60 tablets and dosage 50 MG and Urine Drug Screen Not completed Urine [...] Upcoming Encounters Date Type Department Care Team (Rama Contact Info) Description 07/24/2023 8:30 AM EST Imaging Vascular Lab, [facility] [address] [facility] [place] [address] 07/24/2023 9:30 AM EST Imaging Vascular Lab, [facility] [place] [address] [facility] [place] [address] 08/11/2023 8:40 AM EST Office [facility] [address] [place] [address] Anderson Valladares MD [address] [place], [place] [address] 12/20/2023 1:30 PM EDT Office Visit Urology, [facility] [address] [facility] [place] [address] Mic Meek MD [address] [facility] [address] [place] [address] Scheduled Orders Name Type Priority Associated Diagnoses Orde r Schedule RENAL FUNCTION PANEL Lab Routine Chronic kidney disease, stage 3a (HCC) Expected: 07/12/2023 (Approximate), Expires: 07/12/2024 Health Maintenance Due Date Last Done Comments COVID-19 Vaccine (#1) 03/18/1941 DXA Scan 11/30/2015 11/29/2012, 10/2009, 04/23/2010, Additional history exists DISCUSS TOBACCO CESSATION (REFER TO SMARTSET #3291) 12/13/2015 12/12/2014 (Discussed) Depression Screening 02/22/2023 02/22/2022, 01/20/2016, 12/12/2014 (Discussed) GFR 06/30/2023 12/28/2022, 02/18, 02/15/2022, Additional history exists DTaP,Tdap,and Td Vaccines (2 - Td or Tdap) 12/04/2023 12/03/2013, 03/25/2008, 11/18/1995 CKD HGB USE SMARTSET 29583 12/29/202312/28, 03/17/2022, 08/06/2021, Additional history exists Albumin/Creatinine Ratio 06/15/2024 023, 08/24/2020, 09/14/2018, Additional history exists CKD PHOS USE SMARTSET 59961 07/10/202406/20, 06/15/2023, 03/17/2022, Additional history exists Pneumococcal [...] Chronic bilateral low back pain without sciatica Chronic kidney disease, stage 3a (HCC) documented in this encounter Advance Directives Latest [...] Advance Directives occurred with: Patient Care Teams Utility Worker Forge Relationship Specialty Start Date End Date Markus Clancy MD [address] [place] [facility] [place] [address] PCP - General Family Medicine 10/25/17 documented as of this encounter
--- OUTSIDE RECORDS SUMMARY | 2023-11-07 05:12 | External Medical Summary | Summary of Care ---
Author Name Unknown Organization [facility] Address [address] [place] [address] Phone [phone] Care Team Providers Care Building Illuminating Engineer Name Role Phone Markus Clancy MD Primary Care Provider [phone] Reason for Referral * Medication Prior Authorization - Pending Review Specialty Diagnoses / Procedures Referred By Trinity t Referred To Contact Diagnoses Primary osteoarthritis involving multiple joints Chronic bilateral low back pain without sciatica Markus Clancy MD [address] [place] [address] Referral ID Status Reason Start Date Expiration Date V isits Requested Visits Authorized [id number] Pending Review 999 999 Reason for Visit * Reason Onset Date Comments Medication Refill 07/11/2023 Encounter Details Date Type Department Care Team (Late st Contact Info) Description 07/11/2023 Refill [facility] [address] [place] [address] Markus Clancy MD [address] [place] [address] Primary osteoarthritis involving multiple joints; Chronic bilateral low back pain without sciatica; Chronic kidney disease, stage 3a (HCC) Allergies Active Allergy Reactions Criticality Noted Date Comments Omeprazole Rash Medium 09/04/2018 Pravastatin Hives,Itching,Rash 05/14/2012 documented as of this encounter (statuses as of 07/12/2023) Medications Medication Sig Dispensed Refills Start Date [...] as of this encounter (statuses as of 07/12/2023) Active Problems Problem Noted Date Diagnosed Date [...] as of this encounter (statuses as of 07/12/2023) Resolved Problems Problem Noted Date Diagnosed Date [...] as of this encounter (statuses as of 07/12/2023) Immunizations Name Administration Dates Next Due Pneumococcal [...] MARKUS CLANCY * Telephone Encounter - Judy Romero, [facility] - 07/12/2023 10:39 AM EST Pending Prescriptions: Disp Refills traMADol HCl 50 MG Oral Tablet (Ultram) 60 Tab*0 Sig: Take 1 Tablet by mouth in the morning and 1 Tablet before bedtime. * Telephone Encounter - Judy Romero RP - 07/12/2023 10:38 AM EST I have reviewed the patients controlled substance dispensing history in the Prescription Drug Monitoring Program in compliance with the [facility] regulations before prescribing a controlled substance. PDMP [...] medication is due for refill: 07/11 [id number] [address] [place] [address] Is this request for a controlled substance? Yes and Urine Drug Screen Not completed Toxicology results: No results found for this or any previous visit. Please approve if appropriate. Thanks, Judy Romero PharmD Clinical Pharmacist [facility] ([facility]) (formerly Telepharmacy) [phone] 07/12/2023,10:38 AM * Telephone Encounter - Marah Ruelas PHARM Tech - 07/11/2023 11:48 AM EST Did you pend patient's preferred pharmacy and medication before forwarding?yes Pharmacy: [id number] [address] [facility] Pending Prescriptions: Disp Refills traMADol HCl [...] 07/24/2023 8:30 AM EST Imaging Vascular Lab, [address] [place] [address] 07/24/2023 9:30 AM EST Imaging Vascular Lab, [address] [address] 08/11/2023 8:40 AM EST Office [facility] [address] [place] [address] Anderson Valladares MD [address] [place] [address] 12/20/2023 1:30 PM EDT Office Visit Urology, [address] [place] [address] Mic Meek MD 27 [facility] [address] [place] [address] Scheduled Orders Name [...] 12/03/2013, 03/25/2008, 11/18/1995 CKD HGB USE SMARTSET 24714 12/29/202312/28, 03/17/2022, 08/06/2021, Additional history exists Albumin/Creatinine Ratio 06/15/2024 023, 08/24/2020, 09/14/2018, Additional history exists CKD PHOS USE SMARTSET 38801 07/10/202406/20, 06/15/2023, 03/17/2022, Additional history exists Pneumococcal [...] Advance Directives occurred with: Patient Care Teams Building Illuminating Engineer Relationship Specialty Start Date End Date Markus Clancy MD [address] [place] [address] PCP - General Family Medicine 10/25/17 documented as of this encounter
--- OUTSIDE RECORDS SUMMARY | 2023-11-07 05:13 | External Medical Summary | Summary of Care ---
Author Name Unknown Organization [facility] Address [address] [place] [address] Phone [phone] Care Team Providers Care Center Aisle Cashier Name Role Phone Markus Clancy MD Primary Care Provider [phone] Reason for Visit * Reason Onset Date Comments Medication Refill 06/07/2023 Encounter Details Date Type Department Care Team (Late st Contact Info) Description 06/07/2023 Refill [facility] [address] [place] [address] Markus Clancy MD [address] [place] [address] Primary osteoarthritis involving multiple joints; Chronic bilateral low back pain without sciatica Allergies Active Allergy Reactions Criticality Noted Date Comments Omeprazole Rash Medium 09/04/2018 Pravastatin Hives,Itching,Rash 05/14/2012 documented as of this encounter (statuses as of 06/07/2023) Medications Medication Sig Dispensed Refills Start Date [...] completing Cefdnir. 30 Capsule 0 04/10/2023 Active traMADol HCl 50 MG Oral Tablet (Ultram)Indications :Primary osteoarthritis involving multiple joints,Chronic bilateral low back pain without sciatica Take 1 Tablet by mouth in the morning and 1 Tablet before bedtime. 60 Tablet 0 06/07/2023 Active traMADol HCl 50 MG Oral Tablet (Ultram)Indications :Primary osteoarthritis involving multiple joints,Chronic bilateral low back pain without sciatica Take 1 Tablet by mouth in the morning and 1 Tablet before bedtime. 60 Tablet 0 05/16/2023 3 Discontinu ed(Refill) documented as of this encounter (statuses as of 06/07/2023) Active Problems Problem Noted Date Diagnosed Date [...] as of this encounter (statuses as of 06/07/2023) Resolved Problems Problem Noted Date Diagnosed Date [...] as of this encounter (statuses as of 06/07/2023) Immunizations Name Administration Dates Next Due Pneumococcal [...] Telephone Encounter - Markus Clancy MD - 06/07/2023 7:15 PM ESTSigned Prescriptions: Disp Refills traMADol HCl 50 MG Oral Tablet (Ultram) 60 Tab*0 Sig: Take 1 Tablet by mouth in the morning and 1 Tablet before bedtime.Authorizing Provider: MARKUS CLANCY--------- documented in this encounter Plan of Treatment Upcoming Encounters Date Type Department Care Team (Late st Contact Info) Description 06/21/2023 8:45 AM EST Office Visit Urology, [address] [place] [address] Mic Meek MD 27 [facility] [address] [place] [address] 07/05/2023 3:30 PM EST Office Visit Nephrology, [facility] [address] [place] [address] ZeVianca gaston PA-C [address] [place] [address] 07/24/2023 8:30 AM EST Imaging Vascular Lab, [address] [place] [address] 07/24/2023 9:30 AM EST Imaging Vascular Lab, [address] [place] [address] 08/30/2023 9:10 AM EDT Office Visit Vascular Surgery, [facility] [address] [place] [address] Anderson Valladares MD [address] [facility] [place] [address] Health Maintenance Due Date Last Done Comments COVID-19 Vaccine (#1) 03/18/1941 DXA Scan 11/30/2015 11/29/2012, 10/2009, 04/23/2010, Additional history exists DISCUSS TOBACCO CESSATION (REFER TO SMARTSET #8108) 12/13/2015 12/12/2014 (Discussed) Albumin/Creatinine Ratio 08/24/2021 021, 09/14/2018, 08/23/2017, Additional history exists Depression Screening 02/22/2023 02/22/2022, 01/20/2016, 12/12/2014 (Discussed) CKD PHOS USE SMARTSET 47494 03/17/202302/18, 08/06/2021, 09/23/2020, Additional history exists GFR 06/30/2023 12/28/2022, 02/18, 02/15/2022, Additional history exists DTaP,Tdap,and Td Vaccines (2 - Td or Tdap) 12/04/2023 12/03/2013, 03/25/2008, 11/18/1995 CKD HGB USE SMARTSET 22309 12/29/202312/28, 03/17/2022, 08/06/2021, Additional history exists Pneumococcal Vaccine: [...] Advance Directives occurred with: Patient Care Teams Center Aisle Cashier Relationship Specialty Start Date End Date Markus Clancy MD [address] [place] [address] PCP - General Family Medicine 10/25/17 documented as of this encounter
--- OUTSIDE RECORDS SUMMARY | 2023-11-07 05:13 | External Medical Summary ---
Author Name Unknown Address Unknown Organization K01:LABORATORY [facility] [place] - [address] [place] [address] Laboratory Report Ordering Provider Test Date Status CASH MCMILLAN 07/10/2023 10:16:25 Final Observation Date Value Abnormality Reference (Units ) Status MYCODE SPECIMEN-SST 07/10/2023 10:16:25 Freezing of extracted DNA, whole blood and/or serum. Final Performing Location LABORATORY [facility] - [address] [place] [address]
--- OUTSIDE RECORDS SUMMARY | 2023-11-07 05:13 | External Medical Summary ---
Author Name Unknown Address Unknown Organization K01:LAB[facility]ORY [facility] [place] - [facility] [place] [address] Laboratory Report Ordering Provider Test Date Status NE ESTES 06/15/2023 10:39:36 Final Normal: <30 mg/g creatinine< br/>High: 30-300 mg/g creatinine
Very High: >300 mg/g creatinine
Nephrotic: >2200 mg/g creatinine Observation Date Value Abnormality Reference (Units ) Status Albumin, Urine 06/15/2023 10:39:36 3.79 (mg/dL) Final Creatinine, Urine 06/15/2023 10:39:36 120 (mg/dL) Final Albumin/Creatinine [Mass Ratio] in Urine 06/15/2023 10:39:36 32 Above high normal <30 (mg/g Creat) Final Performing Location LAB[facility]ORY [facility] [address] [place] [address]
--- OUTSIDE RECORDS SUMMARY | 2023-11-07 05:13 | External Medical Summary | Summary of Care ---
Author Name Unknown Organization [facility] Address [address] [place] [address] Phone [phone] Care Team Providers Care Wire Walker Name Role Phone Markus Clancy MD Primary Care Provider [phone] Reason for Visit * Reason Comments Follow Up Encounter Details Date Type Department Care Team (Late st Contact Info) Description 06/21/2023 8:45 AM EST Office Visit Urology, [facility] [address] [facility] [place] [address] Mic Meek MD [address] [facility] [address] [place] [address] History of UTI*; Bladder stones; BPH with obstruction/lower urinary tract symptoms; Calculus of kidney Allergies Active Allergy Reactions Criticality Noted Date Comments Omeprazole Rash Medium 09/04/2018 Pravastatin Hives,Itching,Rash 05/14/2012 documented as of this encounter (statuses as of 06/21/2023) Medications Medication Sig Dispensed Refills Start Date [...] as of this encounter (statuses as of 06/21/2023) Active Problems Problem Noted Date Diagnosed Date [...] as of this encounter (statuses as of 06/21/2023) Resolved Problems Problem Noted Date Diagnosed Date [...] as of this encounter (statuses as of 06/21/2023) Immunizations Name Administration Dates Next Due Pneumococcal [...] on file documented as of this encounter Progress Notes * Mic Meek MD - 06/21/2023 8:45 AM EST [id number] PCP: MARKUS CLANCY [place], [place] [id number] Lul Bird Jr. is a 82 year old male, who presents for f/u of his voiding and UTI history. His past notes are reviewed. Patient's previous cystolitholapaxy and GreenLight TURP last summer. He is pleased with his current voiding, nocturia x 1, no bothersome symptoms. KUB images are reviewed with patient - shows small stable right renal stones. BPH: Patient is being seen for BPH today. He has had the following symptoms: slow stream, postvoid dribbling, nocturia x 3 and frequency. Severity is high. He has tried tamsulosin, stopped due to dizziness. He has previously had office cystoscopy done December 2022. Currently on finasteride. GLTURP and cystolithopaxy Jan 2023. Problem has been present for since earlier this year. Problem is getting better. PSA Results: Lab Results Component Value Date/Time PSA - [facility] 2.42 12/28/2022 09:40 AM PSA - [facility] 1.21 03/10/2021 10:53 AM PSA - [facility] 0.75 09/19/2007 08:47 AM PSA - [facility] 0.99 03/14/2007 11:15 AM PSA - [facility] 1.11 11/22/2005 09:06 AM PSA SCREENING 1.12 08/21/2012 08:55 AM PSA SCREENING 1.04 11/02/2011 08:35 AM PSA SCREENING 0.91 04/27/2011 09:19 AM PSA-OUTSIDE LAB 1.3 09/26/2008 08:11 AM Current Outpatient Medications Medication Sig Dispense Refill [...] Start after completing Cefdnir. 30 Capsule 0 traMADol HCl 50 MG Oral Tablet (Ultram) Take 1 Tablet by mouth in the morning and 1 Tablet before bedtime. 60 Tablet 0 No current facility-administered medications for this visit. Review of patient's allergies indicates: Allergen Reactions Omeprazole Rash Pravastatin Hives, Itching and Rash Social History: Social History Tobacco Use Smoking status: Every Day Packs/day: 1.00 Years: 54.00 Additional pack years: 0.00 Total pack years: 54.00 Types: Cigarettes Smokeless tobacco: Never Substance Use Topics Alcohol use: Yes Comment: rare Vaping/E-Cigarette Use Vaping/E-Cigarette Use Never User Vaping/E-Cigarette Substances Vaping/E-Cigarette Devices Family History Problem Relation Age of Onset Diabetes Mother Hypertension Mother Cancer Father THROAT Cancer Brother CA MOUTH NON SMOKER 47 [place] 99 Diabetes Uncle (Unspecified) Diabetes Uncle (Unspecified) Diabetes Grandmother (Maternal) Diabetes Aunt (Unspecified) Past Surgical History: Procedure Laterality Date ANESTHESIA, LITHOTRIPSY, W/BATH COLONOSCOPY W/ LESION REMOVAL, SNARE 10/24/06 repeat in 3 years path- prob hyperplastic COLORECTAL CANCER SCREEN; COLON 01/20/10 diverticulosis- repeat in 10 years EXPLORATION OF ABDOMEN sbo INFORMATION 07/2016 Dr Sierra- left shoulder surgeryu-=- rotater cuff tear PROSTATE, LASER VAPORIZATION N/A 02/06/2023 LASER VAPORIZATION PROSTATE performed by Mic Meek MD at OR [facility] REMOVAL OF PROSTATE (TURP) N/A 02/06/2023 TRANSURETHRAL RESECTION PROSTATE ELECTROSURGICAL performed by Mic Meek MD at [facility] REMOVE CATARACT, INSERT LENS PROSTH Bilateral 2018 REMOVE LARGE BLADDER STONE, COMPLIC N/A 02/06/2023 LITHOLAPAXY COMPLICATED performed by Mic Meek MD at [facility] REP ECTROPION;EXT TARSAL ST Left 10/15/2018 Dr. Bob REPAIR INITIAL INGUINAL HERNIA REDUCIBLE AGE 5 OR MORE 11/09/10 Excision lipomata cord and direct and indirect right inguinal hernia (pantaloon hernia and lipomatacord) 11/09/10 Dr. Perez at [facility] Past Medical History: Diagnosis Date Allergic rhinitis Benign neoplasm of colon 10/24/06 repeat in 3 years BPH with obstruction/lower urinary tract symptoms Calculus of kidney Diverticulosis of colon 01/21/10 Dyslipidemia, goal LDL below 70 Esophageal reflux Fam hx-cardiovas dis NEC Family history of diabetes mellitus Generalized osteoarthritis History of vertebral fracture 09/2008 Insomnia, unspecified Kidney disease, chronic, stage III (GFR 30-59 ml/min) ([facility]) Lipoma of other specified sites Pectus excavatum Pulmonary nodules 08/[address] in 6 months Senile osteoporosis Tobacco use disorder Patient Active Problem List Diagnosis Code Chronic bilateral low back pain without sciatica M54.50, G89.29 Impotence of organic origin N52.9 PVD (peripheral vascular disease) ([facility]) I73.9 Gastroesophageal reflux disease without esophagitis K21.9 Tobacco use disorder F17.200 Primary osteoarthritis involving multiple joints M15.9 BPH with obstruction/lower urinary tract symptoms N40.1, N13.8 Dyslipidemia, goal LDL below 70 E78.5 Multiple lipomas D17.9 Pulmonary nodules R91.8 MEDICATION USE AGREEMENT [id number] Abdominal aortic aneurysm (AAA) without rupture ([facility]) I71.40 Chronic kidney disease, stage 3a ([facility]) N18.31 Carotid stenosis, non-symptomatic, bilateral I65.23 Bladder stones N21.0 Constitutional: (-) fever and (-) chills ENT: (-) stridor Male : see HPI Musculoskeletal: (+) joint swelling Neurology: (-) negative: no focal neurologic defect Psychiatry: (-) negative: no depression or anxiety Physical Exam Nursing note reviewed. Constitutional: General: He is not in acute distress. Appearance: Normal appearance. He is not toxic-appearing. HENT: Head: Normocephalic and atraumatic. Right Ear: External ear normal. Left Ear: External ear normal. Nose: Nose normal. Mouth/Throat: Mouth: Mucous membranes are moist. Cardiovascular: Pulses: Normal pulses. Pulmonary: Effort: Pulmonary effort is normal. No respiratory distress. Abdominal: Palpations: Abdomen is soft. Tenderness: There is no abdominal tenderness. Musculoskeletal: Cervical back: Normal range of motion and neck supple. Lymphadenopathy: Cervical: No cervical adenopathy. Skin: Coloration: Skin is not cyanotic or pale. Neurological: Mental Status: He is alert and oriented to person, place, and time. Psychiatric: Attention and Perception: Attention normal. Mood and Affect: Mood and affect normal. Impression/Plan: 82 yo male with BPH, right renal stones. We are pleased with the lack of large stones. Indefinite finasteride. RTO in 6 months with PSA thenmove out to yearly visits. Contact us sooner PRN deterioration, consider renal US or CT in 2024.Above content is personally reviewed. Patient vocalizes good understanding of the treatment plan. Mic Meek MD 7:31 AM 06/21/2023 documented in this encounter Nursing Notes * Marce Dominguez LPN - 06/21/2023 8:51 AM EST 3 month ret, KUB results. Patient presents alone. Nocturia x 1. Taking finasteride. documented in this encounter Plan of Treatment Upcoming Encounters Date Type Department Care Team (Late st Contact Info) Description 07/05/2023 3:30 PM EST Office Visit Nephrology, [facility] [address] [place] [address] Vianca Dial PA-C [address] [place] [address] 07/24/2023 8:30 AM EST Imaging Vascular Lab, [facility] 2nd Floor, [address] [place] [address] 07/24/2023 9:30 AM EST Imaging Vascular Lab, [facility] 2nd Floor, [place] [address] [facility] [place] [address] 08/30/2023 9:10 AM EDT Office Visit Vascular Surgery, [facility] [address] [facility] [place] [address] Anderson Valladares MD [address] [facility] [place] [address] 12/20/2023 1:30 PM EDT Office Visit Urology, [facility] [address] [facility] [place] [address] Mic Meek MD [address] [place] [address] [place] [phone] Scheduled Orders Name Type Priority Associated Diagnoses Orde r Schedule PSA Lab Routine History of UTI Bladder stones BPH with obstruction/lower urinary tract symptoms Calculus of kidney Expected: 12/20/2023, Expires: 06/21/2024 Health Maintenance Due Date Last Done Comments COVID-19 Vaccine (#1) 03/18/1941 DXA Scan 11/30/2015 11/29/2012, 10/2009, 04/23/2010, Additional history exists DISCUSS TOBACCO CESSATION (REFER TO SMARTSET #3291) 12/13/2015 12/12/2014 (Discussed) Depression Screening 02/22/2023 02/22/2022, 01/20/2016, 12/12/2014 (Discussed) GFR 06/30/2023 12/28/2022, 02/18, 02/15/2022, Additional history exists DTaP,Tdap,and Td Vaccines (2 - Td or Tdap) 12/04/2023 12/03/2013, 03/25/2008, 11/18/1995 CKD HGB USE SMARTSET 84978 12/29/202312/28, 03/17/2022, 08/06/2021, Additional history exists Albumin/Creatinine Ratio 06/15/2024 023, 08/24/2020, 09/14/2018, Additional history exists CKD PHOS USE SMARTSET 11660 06/15/202405/20, 03/17/2022, 08/06/2021, Additional history exists Pneumococcal [...] as of this encounter Visit Diagnoses Diagnosis History of UTI- Primary Personal history of urinary (tract) infection Bladder stones Other calculus in bladder BPH with obstruction/lower urinary tract symptoms Hypertrophy of prostate with urinary obstruction and other lower urinary tract symptoms (LUTS) Calculus of kidney documented in this encounter Advance Directives Latest [...] Advance Directives occurred with: Patient Care Teams Wire Walker Relationship Specialty Start Date End Date Markus Clancy MD [address] [facility] [place] [address] PCP - General Family Medicine 10/25/17 documented as of this encounter
--- OUTSIDE RECORDS SUMMARY | 2023-11-07 05:13 | External Medical Summary | Summary of Care ---
Author Name Unknown Organization [facility] Address [address] [place] [address] Phone [phone] Care Team Providers Care Chemical Strength Tester Name Role Phone Albert Clancy MD Primary Care Provider Reason for Visit * Reason Comments Outpatient Testing Encounter Details Date Type Department Care Team (Late st Contact Info) Description 06/15/2023 10:40 AM EST Laboratory Laboratory, [place] [address] [place] [address] [place], [facility] [address] [place] [address] Chronic kidney disease, stage 3a (HCC) Allergies Active Allergy Reactions Criticality Noted Date Comments Omeprazole Rash Medium 09/04/2018 Pravastatin Hives,Itching,Rash 05/14/2012 documented as of this encounter (statuses as of 06/15/2023) Medications Medication Sig Dispensed Refills Start Date [...] Active traMADol HCl 50 MG Oral Tablet (Ultram)Indications: Primary osteoarthritis involving multiple joints,Chronic bilateral low back pain without sciatica Take 1 Tablet by mouth in the morning and 1 Tablet before bedtime. 60 Tablet 0 06/07/2023 Active documented as of this encounter (statuses as of 06/15/2023) Active Problems Problem Noted Date Diagnosed Date [...] as of this encounter (statuses as of 06/15/2023) Resolved Problems Problem Noted Date Diagnosed Date [...] as of this encounter (statuses as of 06/15/2023) Immunizations Name Administration Dates Next Due Pneumococcal [...] 06/21/2023 8:45 AM EST Office Visit Urology, [facility] [address] [place] [address] Mic Meek MD [address] [facility] [place] [address] [place] [address] 07/05/2023 3:30 PM EST Office Visit Nephrology, [facility] [address] [place] [address] Vianca Dial PA-C [address] [place] [address] 07/24/2023 8:30 AM EST Imaging Vascular Lab, [facility] [address] [place] [address] 07/24/2023 9:30 AM EST Imaging Vascular Lab, [address] [place] [address] 08/30/2023 9:10 AM EDT Office Visit Vascular Surgery, [facility] [address] [place] [address] Anderson Valladares MD [address] [place] [address] Pending Results Name Type Priority Associated Diagnoses Date /Time ALBUMIN / CREATININE RATIO, URINE Lab Routine Chronic kidney disease, stage 3a (HCC) 06/15/2023 10:39 AM EST Health Maintenance Due Date Last Done Comments COVID-19 Vaccine (#1) 03/18/1941 DXA Scan 11/30/2015 11/29/2012, 10/2009, 04/23/2010, Additional history exists DISCUSS TOBACCO CESSATION (REFER TO SMARTSET #1501) 12/13/2015 12/12/2014 (Discussed) Albumin/Creatinine Ratio 08/24/2021 021, 09/14/2018, 08/23/2017, Additional history exists Depression Screening 02/22/2023 02/22/2022, 01/20/2016, 12/12/2014 (Discussed) CKD PHOS USE SMARTSET 53837 03/17/202302/18, 08/06/2021, 09/23/2020, Additional history exists GFR 06/30/2023 12/28/2022, 02/18, 02/15/2022, Additional history exists DTaP,Tdap,and Td Vaccines (2 - Td or Tdap) 12/04/2023 12/03/2013, 03/25/2008, 11/18/1995 CKD HGB USE SMARTSET 49404 12/29/202312/28, 03/17/2022, 08/06/2021, Additional history exists Pneumococcal [...] as of this encounter Visit Diagnoses Diagnosis Chronic kidney disease, stage 3a (HCC) documented [...] Advance Directives occurred with: Patient Care Teams Chemical Strength Tester Relationship Specialty Start Date End Date Albert Clancy MD [address] [place] [address] PCP - General Family Medicine 10/25/17 documented as of this encounter
--- OUTSIDE RECORDS SUMMARY | 2023-11-07 05:13 | External Medical Summary | Summary of Care ---
Author Name Unknown Organization [facility] Address [address] [place] [address] Phone [phone] Care Team Providers Care Range Ecologist Name Role Phone Albert Clancy MD Primary Care Provider [phone] Reason for Visit * Reason Onset Date Comments Test Results 03/02/2023 Encounter Details Date Type Department Care Team (Late st Contact Info) Description 03/02/2023 Telephone Urology, [facility] [address] [place] [address] Services, Scheduling [address] [place] [address] Test Results Allergies Active Allergy Reactions Criticality Noted Date Comments Omeprazole Rash Medium 09/04/2018 Pravastatin Hives,Itching,Rash 05/14/2012 documented as of this encounter (statuses as of 06/01/2023) Medications Medication Sig Dispensed Refills Start Date End Date Status atorvaSTATin (LIPITOR) 40 MG TabletIndications: Dyslipidemia, goal LDL below 70 Take 1 Tab by mouth daily. 90 Tab 3 8 Active Additional Information Patient taking differently:40 mg OralHS, Reported on 01/17/2023 Acetaminophen ER 650 MG Oral Tablet Extended Release Take 1 Tablet by mouth every 8 hours as needed for Pain, Mild. 30 Tab 0 1 Active Multi Vitamin Daily Oral Tablet Take by mouth. 0 Act raffaele Aspirin 81 MG Oral Tablet Chewable Take 1 Tablet by mouth in the morning. 0 Active Finasteride 5 MG Oral Tablet (Proscar) Take 1 Tablet by mouth in the morning. 90 Tablet 3 3 Active omeprazole (PRILOSEC) 20 MG CPDRIndications:Ga stroesophageal reflux disease without esophagitis Take 1 Cap by mouth daily. 1 hour before the first meal of the day 30 Cap 5 0 023 Discontinued(Pa tient preference/disc ontinuation) Fexofenadine HCl 60 MG Oral Tablet Take by mouth 60 mg in the morning. 0 023 Discontinued(Pa tient preference/disc ontinuation) traZODone HCl 50 MG Oral Tablet (Desyrel)Indicatio ns:Persistent insomnia Take 1 tablet by mouth 1-3 hrs before bedtime 90 Tablet 1 3 023 Discontinued Cefdinir 300 MG Oral Capsule (Omnicef) Take 1 Capsule by mouth in the morning and 1 Capsule before bedtime. Start February 01, 2023. 20 Capsule 0 3 023 Discontinued(Pa tient preference/disc ontinuation) traMADol HCl 50 MG Oral Tablet (Ultram)Indication s:Primary osteoarthritis involving multiple joints,Chronic bilateral low back pain without sciatica Take 1 Tablet by mouth in the morning and 1 Tablet before bedtime. 60 Tablet 0 3 023 Discontinued(Re fill) Nitrofurantoin Monohyd Macro 100 MG Oral Capsule (Macrobid) Take 1 Capsule by mouth in the morning and 1 Capsule before bedtime. With food.. 60 Capsule 0 3 023 Discontinued(Pa tient preference/disc ontinuation) documented as of this encounter (statuses as of 06/01/2023) Active Problems Problem Noted Date Diagnosed Date [...] as of this encounter (statuses as of 06/01/2023) Resolved Problems Problem Noted Date Diagnosed Date [...] as of this encounter (statuses as of 06/01/2023) Immunizations Name Administration Dates Next Due Pneumococcal Conjugate Vacc, 13 Valent (Prevnar) 01/20/2016 Pneumococcal Polysaccharide PPV23 (Pneumovax) 03/24/2009 Season Influenza, Quad, PF, Adjuvanted, 65+ Yrs, IM (FLUAD) 03/25/2020 Seasonal Influenza, PF, 6 M & above, IM , (FluLaval or Fluzone) 03/26/2019,03/29/2018,08/23/2017 Seasonal Influenza, Quadriva lent Hd (Fluzone Hd) [...] encounter Miscellaneous Notes * Telephone Encounter - Marce Dominguez LPN - 03/02/2023 1:54 PM EDT Spoke with daughter, aware of antibiotic. Patient will come to [facility] tomorrow for PVR and possible catheter placement. Thank you Cyndy * Telephone Encounter - Mic Meek MD - 03/02/2023 1:49 PM EDT Extended course of Macrobid provided, follow-up urine culture. Patient can come in for PVR and possible Calles catheter replacement x1 week if he is continuing to have urinary difficulties. Thanks, HM * Telephone Encounter - Marce Dominguez LPN - 03/02/2023 10:[address] Meek Culture results from 02/28 still preliminary status, showing infection. Spoke with daughter. States patient is complaining of dizziness, lightheadedness, patient afraid offalling. Denies fevers, chills. Patient refusing ER. Nocturia overnight every hour. Instructed to have patient push fluids. Do you want to call in abx, or await final results? Uses [facility]. Thank you Cyndy * Telephone Encounter - Klarissa Cruz OSA - 03/02/2023 9:57 AM EDT Patient daughter calling asking if pt test results are in yet, please advise and call back, thanks documented in this encounter Plan of Treatment Upcoming Encounters Date Type Department Care Team (Late st Contact Info) Description 06/21/2023 8:45 AM EST Office Visit Urology, [facility] [address] [facility] [place] [address] Mic Meek MD [address] [place] [address] [place] [address] 07/05/2023 3:30 PM EST Office Visit Nephrology, [facility] [address] [facility] [place] [address] Vianca Dial PA-C [address] [facility] [place] [address] 07/24/2023 8:30 AM EST Imaging Vascular Lab, [facility] [address] [place] [address] 07/24/2023 9:30 AM EST Imaging Vascular Lab, [facility] 2nd [facility] [address] [facility] [place] [address] 08/30/2023 9:10 AM EDT Office Visit Vascular Surgery, [facility] [address] [facility] [place] [address] Anderson Valladares MD [address] [place] [address] Health Maintenance Due Date Last Done Comments COVID-19 Vaccine (#1) 03/18/1941 DXA Scan 11/30/2015 11/29/2012, 10/2009, 04/23/2010, Additional history exists DISCUSS TOBACCO CESSATION (REFER TO SMARTSET #3291) 12/13/2015 12/12/2014 (Discussed) Albumin/Creatinine Ratio 08/24/2021 021, 09/14/2018, 08/23/2017, Additional history exists Depression Screening 02/22/2023 02/22/2022, 01/20/2016, 12/12/2014 (Discussed) CKD PHOS USE SMARTSET 03192 03/17/202302/18, 08/06/2021, 09/23/2020, Additional history exists GFR 06/30/2023 12/28/2022, 02/18, 02/15/2022, Additional history exists DTaP,Tdap,and Td Vaccines (2 - Td or Tdap) 12/04/2023 12/03/2013, 03/25/2008, 11/18/1995 CKD HGB USE SMARTSET 81308 12/29/202312/28, 03/17/2022, 08/06/2021, Additional history exists Pneumococcal [...] Advance Directives occurred with: Patient Care Teams Range Ecologist Relationship Specialty Start Date End Date Albert Clancy MD [address] [place] [address] PCP - General Family Medicine 10/25/17 documented as of this encounter
--- OUTSIDE RECORDS SUMMARY | 2023-11-07 05:13 | External Medical Summary ---
Author Name Unknown Address Unknown Organization K01:[facility] - [address] [place] [address] Laboratory Report Ordering Provider Test Date Status CASH MCMILLAN 07/10/2023 10:16:25 Final Observation Date Value Abnormality Reference (Units ) Status MYCODE SPECIMEN-SST 07/10/2023 10:16:25 Freezing of extracted DNA, whole blood and/or serum. Final Performing Location [facility] - [address] [place] [address]
--- OUTSIDE RECORDS SUMMARY | 2023-11-07 05:13 | External Medical Summary | Summary of Care ---
Author Name Unknown Organization [facility] Address [address] [place] [address] Phone [phone] Care Team Providers Care Skull Splitter Name Role Phone Markus Clancy MD Primary Care Provider [phone] Reason for Visit * Reason Onset Date Comments Medication Refill 06/07/2023 Med Request 06/07/2023 Encounter Details Date Type Department Care Team ([facility] st Contact Info) Description 06/07/2023 Refill [facility] [address] [place] [address] Markus Clancy MD [address], [place] [id number] Primary osteoarthritis involving multiple joints; Chronic bilateral low back pain without sciatica Allergies Active Allergy Reactions Criticality Noted Date Comments Omeprazole Rash Medium 09/04/2018 Pravastatin Hives,Itching,Rash 05/14/2012 documented as of this encounter (statuses as of 06/14/2023) Medications Medication Sig Dispensed Refills Start Date [...] as of this encounter (statuses as of 06/14/2023) Active Problems Problem Noted Date Diagnosed Date [...] as of this encounter (statuses as of 06/14/2023) Resolved Problems Problem Noted Date Diagnosed Date [...] as of this encounter (statuses as of 06/14/2023) Immunizations Name Administration Dates Next Due Diptheria/Tetanus [...] encounter Miscellaneous Notes * Telephone Encounter - Sandra Downey CPhT - 06/14/2023 12:05 PM EST Pt calling to request tramadol. Informed pt that RX is available at their pharmacy. Pt verbalized understanding and stated they will check with their pharmacy regarding this medication. Thank you, Sandra Downey CPhT [employer] [facility] ([facility])(formerly telepharmacy) 06/14/2023,12:05 PM * Telephone Encounter - Markus Clancy MD - 06/07/2023 7:15 PM ESTSigned Prescriptions: Disp Refills traMADol HCl 50 MG Oral Tablet (Ultram) 60 Tab*0 Sig: Take 1 Tablet by mouth in the morning and 1 Tablet before bedtime.Authorizing Provider: MARKUS CLANCY-------- documented in this encounter Plan of Treatment Upcoming Encounters Date Type Department Care Team (Late st Contact Info) Description 06/21/2023 8:45 AM EST Office Visit Urology, [facility] [address] [place] [address] Mic Meek MD [address] [place] [address] 07/05/2023 3:30 PM EST Office Visit Nephrology, [facility] [address] [facility] [place] [address] Vianca Dial PA-C [address] [facility] [place] [address] 07/24/2023 8:30 AM EST Imaging Vascular Lab, [address] [facility] [place] [address] 07/24/2023 9:30 AM EST Imaging Vascular Lab, [address] [facility] [place] [address] 08/30/2023 9:10 AM EDT Office Visit Vascular Surgery, [facility] [address] [facility] [place] [address] Anderson Valladares MD [address] [place] [address] Health Maintenance Due Date Last Done Comments COVID-19 Vaccine (#1) 03/18/1941 DXA Scan 11/30/2015 11/29/2012, 10/2009, 04/23/2010, Additional history exists DISCUSS TOBACCO CESSATION (REFER TO SMARTSET #3291) 12/13/2015 12/12/2014 (Discussed) Albumin/Creatinine Ratio 08/24/2021 021, 09/14/2018, 08/23/2017, Additional history exists Depression Screening 02/22/2023 02/22/2022, 01/20/2016, 12/12/2014 (Discussed) CKD PHOS USE SMARTSET 93747 03/17/202302/18, 08/06/2021, 09/23/2020, Additional history exists GFR 06/30/2023 12/28/2022, 02/18, 02/15/2022, Additional history exists DTaP,Tdap,and Td Vaccines (2 - Td or Tdap) 12/04/2023 12/03/2013, 03/25/2008, 11/18/1995 CKD HGB USE SMARTSET 93680 12/29/202312/28, 03/17/2022, 08/06/2021, Additional history exists Pneumococcal [...] Advance Directives occurred with: Patient Care Teams Skull Splitter Relationship Specialty Start Date End Date Markus Clancy MD [address] [facility] [place] [address] PCP - General Family Medicine 10/25/17 documented as of this encounter
--- OUTSIDE RECORDS SUMMARY | 2023-11-07 05:13 | External Medical Summary ---
Author Name Unknown Address Unknown Organization K01:[facility] - [address] [place] [address] Laboratory Report Ordering Provider Test Date Status NE ESTES 06/15/2023 10:39:36 Final Observation Date Value Abnormality Reference (Units ) Status Phosphate 06/15/2023 10:39:36 2.0 Below low normal 2.5 -4.8 (mg/dL) Final Performing Location [facility] - [address] [place] [address]
--- OUTSIDE RECORDS SUMMARY | 2023-11-07 05:14 | External Medical Summary | Summary of Care ---
Author Name Unknown Organization [facility] Address [address] [place] [address] Phone [phone] Care Team Providers Care Checker Product Design Name Role Phone Albert Clancy MD Primary Care Provider [phone] Reason for Visit * Reason Onset Date Comments Appointment 05/09/2023 recall Encounter Details Date Type Department Care Team ([facility] st Contact Info) Description 05/09/2023 Telephone Vascular Surg [facility] [address] [place] [address] Anderson Valladares MD [address], [place] [phone] Appointment (recall) Allergies Active Allergy Reactions Criticality Noted Date Comments Omeprazole Rash Medium 09/04/2018 Pravastatin Hives,Itching,Rash 05/14/2012 documented as of this encounter (statuses as of 05/15/2023) Medications Medication Sig Dispensed Refills Start Date [...] 1 Tablet before bedtime. 60 Tablet 0 04/11/2023 Active documented as of this encounter (statuses as of 05/15/2023) Active Problems Problem Noted Date Diagnosed Date [...] as of this encounter (statuses as of 05/15/2023) Resolved Problems Problem Noted Date Diagnosed Date [...] as of this encounter (statuses as of 05/15/2023) Immunizations Name Administration Dates Next Due Diptheria/Tetanus (Adult) 11/18/1995 Pneumococcal Conjugate Vacc, 13 Valent (Prevnar) 01/20/2016 Pneumococcal Polysaccharide PPV23 (Pneumovax) 03/24/2009,03/14/2002 SEASONAL INFLUENZA, PF, 6 M & Above, IM , (FLULAVAL or FLUZONE) 04/08/2023,03/26/2019,03/29/2018,08/23 Season Influenza, Quad, PF, Adjuvanted, 65+ Yrs, IM (FLUAD) 03/25/2020 Seasonal Influenza Virus Vac cine, Unspecified Formulation 06/19/1997,06/19/1996 Seasonal Influenza, Quadriva lent Hd (Fluzone Hd) 04/13/2022,04/03/2021 Seasonal Influenza, Quadriva lent, No Preserve, IM 08/18/2016,07/21/2015 Seasonal Influenza, Split, I IV3, With Preserve, Inj 05/30/2013,05/14/2012,05/05/2011,04/23,03/24/2009,03/25/2008,03/20/2007 ,03/28/2006,05/06/2003,04/22/2002,12/0 08/2000,06/05/2000,04/22/1999 TD, Preservative Free 03/25/2008 TDAP (age 10 [...] encounter Miscellaneous Notes * Telephone Encounter - Ivette Fairchild OSA - 05/15/2023 9:56 AM EST Scheduled rrh * Telephone Encounter - Ivette Fairchild OSA - 05/09/2023 11:26 AM EST RTC in [address] [facility] with any provider with an aortic duplex and [place] art duplex Called and left a message for patient to schedule his year return rrh documented in this encounter Plan of Treatment Upcoming Encounters Date Type Department Care Team (Late st Contact Info) Description 06/21/2023 8:45 AM EST Office Visit Urology, [facility] [address] [facility] [place] [address] Mic Meek MD [address] [address] [place] [address] 07/24/2023 8:30 AM EST Imaging Vascular Lab, [facility] [address] [facility] [place] [address] 07/24/2023 9:30 AM EST Imaging Vascular Lab, [facility] [address] [facility] [place] [address] 08/30/2023 9:10 AM EDT Office Visit Vascular Surgery, [facility] [address] [facility] [place] [address] Anderson Valladares MD [address] [place] [address] Health Maintenance Due Date Last Done Comments COVID-19 Vaccine (#1) 03/18/1941 DXA Scan 11/30/2015 11/29/2012, 10/2009, 04/23/2010, Additional history exists DISCUSS TOBACCO CESSATION (REFER TO SMARTSET #6482) 12/13/2015 12/12/2014 (Discussed) Albumin/Creatinine Ratio 08/24/2021 021, 09/14/2018, 08/23/2017, Additional history exists Depression Screening 02/22/2023 02/22/2022, 01/20/2016, 12/12/2014 (Discussed) CKD PHOS USE SMARTSET 14005 03/17/202302/18, 08/06/2021, 09/23/2020, Additional history exists GFR 06/30/2023 12/28/2022, 02/18, 02/15/2022, Additional history exists DTaP,Tdap,and Td Vaccines (2 - Td or Tdap) 12/04/2023 12/03/2013, 03/25/2008, 11/18/1995 CKD HGB USE SMARTSET 95120 12/29/202312/28, 03/17/2022, 08/06/2021, Additional history exists Pneumococcal [...] Advance Directives occurred with: Patient Care Teams Checker Product Design Relationship Specialty Start Date End Date Albert Clancy MD [address] [place] [address] PCP - General Family Medicine 10/25/17 documented as of this encounter
--- OUTSIDE RECORDS SUMMARY | 2023-11-07 05:14 | External Medical Summary | Summary of Care ---
Author Name Unknown Organization [facility] Address [address] [place] [address] Phone [phone] Care Team Providers Care Train Control Electronic Technician Name Role Phone Albert Clancy MD Primary Care Provider [phone] Reason for Visit * Reason Comments Acute Pt states that he gonzalez s a prostate surgery 6 weeks ago and now he is having difficulty to urinate. Encounter Details Date Type Department Care Team (Late st Contact Info) Description 04/05/2023 4:20 PM EDT Office Visit [facility] [address] [place] [address] lAbert Clancy MD [address] [place] [address] BPH with obstruction/lower urinary tract symptoms*; UTI symptoms Allergies Active Allergy Reactions Criticality Noted Date Comments Omeprazole Rash Medium 09/04/2018 Pravastatin Hives,Itching,Rash 05/14/2012 documented as of this encounter (statuses as of 05/13/2023) Medications Medication Sig Dispensed Refills Start Date [...] 1 Tablet before bedtime. 60 Tablet 0 03/09/2023 04/10/20 Discontinue d(Refill) Cefdinir 300 MG Oral Capsule (Omnicef)Indication s:UTI symptoms Take 1 Capsule by mouth in the morning and 1 Capsule before bedtime. Do all this for 14 days. For 10 days.. 28 Capsule 0 04/05/2023 04/19/20 documented as of this encounter (statuses as of 05/13/2023) Active Problems Problem Noted Date Diagnosed Date [...] as of this encounter (statuses as of 05/13/2023) Resolved Problems Problem Noted Date Diagnosed Date [...] as of this encounter (statuses as of 05/13/2023) Immunizations Name Administration Dates Next Due Pneumococcal Conjugate Vacc, 13 Valent (Prevnar) 01/20/2016 Pneumococcal Polysaccharide PPV23 (Pneumovax) 03/24/2009 SEASONAL INFLUENZA, PF, 6 M & Above, IM , (FLULAVAL or FLUZONE) 03/26/2019,03/29/2018,08/23/2017 Season Influenza, Quad, PF, Adjuvanted, 65+ Yrs, IM (FLUAD) 03/25/2020 Seasonal Influenza, Quadriva lent Hd (Fluzone Hd) [...] Tobacco: Never Tobacco Cessation:Ready to Q uit: Not Asked; Counseling Given: Not Answered Alcohol Use Standard Drinks/Week Comments Yes 0 [...] Sign Reading Time Taken Comments Blood Pressure 128/68 04/05/2023 4:13 PM EDT Pulse 92 04/05/2023 4:13 PM EDT Temperature 36.2 C (97.1 F) 04/05/2023 4:13 PM ED T Respiratory Rate 16 04/05/2023 4:13 PM EDT Oxygen Saturation 96% 04/05/2023 4:13 PM EDT Inhaled Oxygen Concentration - - Weight 73 kg (161 lb) 04/05/2023 4:13 PM EDT Height 177.8 cm (5' 10") 04/05/2023 4:13 PM EDT Body Mass Index 23.1 04/05/2023 4:13 PM EDT documented in this encounter Progress Notes * Albert Clancy MD - 04/05/2023 4:56 PM EDT Subjective: Lul Bird Jr. is a 82 year old male. Chief Complaint Patient presents with Acute Pt states that he has a prostate surgery 6 weeks ago and now he is having difficulty to urinate. HPI: 82-year-old who had undergone TURP in January. Prior to that procedure he had developed urinarytract infection. Following the procedure he had ongoing urinary retention and Calles catheter neededto be in place for 6 weeks. Last saw his urologist Dr. Meek 2 weeks ago and it was about that time his Calles catheter was removed. Urine culture at that time showed no growth. Now over the last 5 days he has developed urinary symptoms very similar to what he had before his surgery when he was diagnosed with the infection. He has urinary frequency , small voids, dysuria. Additionally he just does not feel well in has some generalize achiness especially in his legs. He is not aware of fever. 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 90 Tablet 3 traMADol HCl 50 MG Oral Tablet (Ultram) Take 1 Tablet by mouth in the morning and 1 Tablet before bedtime. 60 Tablet 0 traZODone HCl 50 MG Oral Tablet (Desyrel) TAKE 1 TABLET BY MOUTH 1 TO 3 HOURS BEFORE BEDTIME 90 Tablet 1 Cefdinir 300 MG Oral Capsule (Omnicef) Take 1 Capsule by mouth in the morning and 1 Capsule before bedtime. Do all this for 14 days. For 10 days.. 28 Capsule 0 Amoxicillin-Pot Clavulanate 875-125 MG Oral Tablet Take 1 Tablet by mouth in the morning and 1 Tablet before bedtime. (Patient not taking: Reported on 04/05/2023) No current facility-administered medications for this visit. Review of patient's allergies indicates: Allergen Reactions Omeprazole Rash Pravastatin Hives, Itching and Rash Objective: BP 128/68 (BP Site: Left Arm, BP Position: Sitting, BP Cuff Size: Regular) | Pulse 92 | Temp 36.2 C (97.1 F) (Temporal Artery) | Resp 16 | Ht 1.778 m (5' 10") | Wt 73 kg (161 lb) | SpO2 96% | BMI23.10 kg/m | BSA 1.9 m Physical Exam: CONST: alert, pleasant, no acute distress but he clearly is not his normal self. He usually does not complain but he did this evening. HEAD: normocephalic, atraumatic Eyes - PERRLA, EOM'I OROPHARYNX: clear, no swelling or erythema, moist CV: regular rate and rhythm, no murmur CHEST: clear to auscultation bilaterally, no rales or wheezing ABD: soft, non tender, non distended, no masses or hepatosplenomegaly. No CVA tenderness nor was any significant suprapubic tenderness EXT: no edema, no joint swelling or deformities, Urine dipstick-showed blood and leukocytes ASSESSMENT/PLAN: BPH with obstruction/lower urinary tract symptoms (Primary) - URINALYSIS, POINT OF CARE (ENTER/EDIT) - CULTURE, URINE, QUANTITATIVE UTI symptoms-probable UTI - Cefdinir 300 MG Oral Capsule (Omnicef); Take 1 Capsule by mouth in the morning and 1 Capsule before bedtime. Do all this for 14 days. For [address] Meek (urology) asking if he would do anything different or add anything. Albert Clancy MD documented in this encounter Nursing Notes * Kathleen Kennedy CCMA - 04/05/2023 4:13 PM EDT Lul Bird Jr. is a 82 year old male who presents today for Chief Complaint Patient presents with Acute Pt states that he has a prostate surgery 6 weeks ago and now he is having difficulty to urinate. Ptstates that he has body aches as well documented in this encounter Plan of Treatment Upcoming Encounters Date Type Department Care Team (Late st Contact Info) Description 06/21/2023 8:45 AM EST Office Visit Urology, [facility] [address] [facility] [place] [address] Mic Meek MD [address] [facility] [address] [place] [address] Health Maintenance Due Date Last Done Comments COVID-19 Vaccine (#1) 03/18/1941 DXA Scan 11/30/2015 11/29/2012, 10/2009, 04/23/2010, Additional history exists DISCUSS TOBACCO CESSATION (REFER TO SMARTSET #3931) 12/13/2015 12/12/2014 (Discussed) Albumin/Creatinine Ratio 08/24/2021 021, 09/14/2018, 08/23/2017, Additional history exists Depression Screening 02/22/2023 02/22/2022, 01/20/2016, 12/12/2014 (Discussed) CKD PHOS USE SMARTSET 29811 03/17/202302/18, 08/06/2021, 09/23/2020, Additional history exists GFR 06/30/2023 12/28/2022, 02/18, 02/15/2022, Additional history exists DTaP,Tdap,and Td Vaccines (2 - Td or Tdap) 12/04/2023 12/03/2013, 03/25/2008, 11/18/1995 CKD HGB USE SMARTSET 08274 12/29/202312/28, 03/17/2022, 08/06/2021, Additional history exists Pneumococcal [...] Not on filedocumented as of this encounter Procedures Procedure Name Priority Date/Time Associated Diagnosis Comments URINALYSIS, POINT OF CARE (ENTER/EDIT) Routine 04/05/2023 4:28 PM EDT BPH with obstruction/lower urinary tract symptoms CULTURE, URINE, QUANTITATIVE Routine 04/05/2023 4:23 PM EDT BPH with obstruction/lower urinary tract symptoms documented in this encounter Results * (ABNORMAL) URINALYSIS, POINT OF CARE (ENTER/EDIT) (04/05/2023 4:28 PM EDT) Color, Urine Dark Yellow Yellow or Light Yellow Clarity, Urine Cloudy Clear Glucose, Urine Negative Negative mg/dL Bilirubin, Urine Negative Negative Ketone, Urine Trace(A) Negative mg/dL Specific Rudolph, Urine 1.015 1.003 - 1.030 Blood, Urine Moderate(A) Negative pH, Urine 6.0 5.0 - 7.5 units Protein, Urine 100(A) Negative mg/dL Urobilinogen, Urine 0.2 0.2 - 1.0 mg/dL Nitrite, Urine Positive(A) Negative Esterase, Urine Large(A) Negative Urine 04/05/2023 4:28 PM EDT Albert Clancy MD LAB POINT OF CARE TE ST ENTER/EDIT ORDERABLES * (ABNORMAL) CULTURE, URINE, QUANTITATIVE (04/05/2023 4:23 PM EDT) Culture Growth >100,000 colonies/mL Escherichia coli(A) MICROBROTH DILUTIONS 04/07/2023 1:09 PM EDT [facility] [place] Urine specimen / Unknown Non-blood Collection / Unknown 04/05/2023 4:23 PM EDT 04/05/2023 4:23 PM EDT Narrative Organism Antibiotic Method Susceptibility Escherichia coli Ampicillin MICROBROTH DILUTIONS <=2: Susceptible Escherichia coli Cefazolin MICROBROTH DILUTIONS <=4: Susceptible Escherichia coli Cefepime MICROBROTH DILUTIONS <=1: Susceptible Escherichia coli Ceftriaxone MICROBROTH DILUTIONS <=1: Susceptible Escherichia coli Ciprofloxacin MICROBROTH DILUTIONS <=0.25: Susceptible Comment:Due to franci us side effects, the FDA has advised against using Ciprofloxacin to treat uncomplicated UTIs and respiratory tract infections unless there are no alternative treatment options. Escherichia coli Gentamicin MICROBROTH DILUTIONS <=1: Susceptible Escherichia coli Nitrofurantoin MICROBROTH DILUTIONS <=16: Susceptible Escherichia coli Piperacillin Tazobactam MICROBROTH DI LUTIONS <=4: Susceptible Escherichia coli Trimeth/Sulfamethoxazole MICROBROTH D ILUTIONS <=20: Susceptible Albert Clancy MD LAB MICRO - GENERAL ORDERABLES [facility] [address] [place] [address] documented in this encounter Visit Diagnoses Diagnosis BPH with obstruction/lower urinary tract symptoms- Primary Hypertrophy of prostate with urinary obstruction and other lower urinary tract symptoms (LUTS) UTI symptoms Other symptoms involving urinary system documented in this encounter Advance Directives [...] Advance Directives occurred with: Patient Care Teams Train Control Electronic Technician Relationship Specialty Start Date End Date Albert Clancy MD [address] [place] [address] PCP - General Family Medicine 10/25/17 documented as of this encounter
--- OUTSIDE RECORDS SUMMARY | 2023-11-07 05:14 | External Medical Summary | Summary of Care ---
Author Name Unknown Organization [facility] Address [address] [place] [address] Phone [phone] Care Team Providers Care Still Pump Operator Name Role Phone Markus Clancy MD Primary Care Provider [phone] Reason for Visit * Reason Onset Date Comments Medication Refill 05/15/2023 Encounter Details Date Type Department Care Team (Late st Contact Info) Description 05/15/2023 Refill [facility] [address] [place] [address] Markus Clancy MD [address] [place] [address] Primary osteoarthritis involving multiple joints; Chronic bilateral low back pain without sciatica; Chronic kidney disease, stage 3a (HCC) Allergies Active Allergy Reactions Criticality Noted Date Comments Omeprazole Rash Medium 09/04/2018 Pravastatin Hives,Itching,Rash 05/14/2012 documented as of this encounter (statuses as of 05/16/2023) Medications Medication Sig Dispensed Refills Start Date [...] Tablet before bedtime. 60 Tablet 0 05/16/2023 Active traMADol HCl 50 MG Oral Tablet (Ultram)Indications :Primary osteoarthritis involving multiple joints,Chronic bilateral low back pain without sciatica Take 1 Tablet by mouth in the morning and 1 Tablet before bedtime. 60 Tablet 0 04/11/2023 3 Discontinu ed(Refill) documented as of this encounter (statuses as of 05/16/2023) Active Problems Problem Noted Date Diagnosed Date [...] as of this encounter (statuses as of 05/16/2023) Resolved Problems Problem Noted Date Diagnosed Date [...] as of this encounter (statuses as of 05/16/2023) Immunizations Name Administration Dates Next Due Pneumococcal [...] Telephone Encounter - Markus Clancy MD - 05/16/2023 9:50 AM ESTSigned Prescriptions: Disp Refills traMADol HCl 50 MG Oral Tablet (Ultram) 60 Tab*0 Sig: Take 1 Tablet by mouth in the morning and 1 Tablet before bedtime. Authorizing Provider: MARKUS CLANCY * Telephone Encounter - Judy Romero [facility] - 05/16/2023 8:59 AM EST Pending Prescriptions: Disp Refills traMADol HCl 50 MG Oral Tablet (Ultram) 60 Tab*0 Sig: Take 1 Tablet by mouth in the morning and 1 Tablet before bedtime. * Telephone Encounter - Judy Romero [facility] [place] - 05/16/2023 8:59 AM EST I have reviewed the patients controlled substance dispensing history in the Prescription Drug Monitoring Program in compliance with the [facility] regulations before prescribing a controlled substance. PDMP checked on 05/16/2023. Pending Prescriptions: Disp Refills traMADol HCl 50 MG Oral Tablet (Ultram) 60 Tab*0 Sig: Take 1 Tablet by mouth in the morning and 1 Tablet before bedtime. Last Visit: 04/05/2023 (in office), Visit date not found (telemedicine) Next Visit: Visit date not found Date medication was last filled: 04/11 Date medication is due for refill: 05/10 Pharmacy: [id number] [facility] Is this request for a controlled substance? Yes and Urine Drug Screen Not completed Toxicology results: No results found for this or any previous visit. Please approve if appropriate. Thanks, Judy Romero, PharmD Clinical Pharmacist [facility] ([facility]) (formerly Telepharmacy) [phone] 05/16/2023,8:59 AM * Telephone Encounter - Marli Christiansen CPhT - 05/15/2023 10:29 AM EST Did you pend patient's preferred pharmacy and medication before forwarding?yes Pharmacy: [id number] [facility] Pending Prescriptions: Disp Refills traMADol [...] appointment Last date the medication was ordered: 04/11/2023 Is this request for a controlled substance?Yes, What was the last refill date 04/11/2023 w/ quantity 60 and dosage 50mg and Urine Drug Screen Not completed Urine [...] 06/21/2023 8:45 AM EST Office Visit Urology, [facility] [address] [place] [address] Mic Meek MD [address] [facility] [address] [place] [address] 07/24/2023 8:30 AM EST Imaging Vascular Lab, [facility] [address] [facility] [address] [facility] [place] [address] 07/24/2023 9:30 AM EST Imaging Vascular Lab, [facility] [place] [address] [facility] [address] 08/30/2023 9:10 AM EDT Office Visit [facility], [facility] [address] [facility] [place] [address] Anderson Valladares MD [address] [place] [address] Scheduled Orders Name Type Priority Associated Diagnoses Orde r Schedule ALBUMIN / CREATININE RATIO, URINE Lab Routine Chronic kidney disease, stage 3a (HCC) Expected: 05/16/2023 (Approximate), Expires: 05/16/2024 PHOSPHORUS Lab Routine Chronic kidney disease, stage 3a (HCC) Ordered: 05/16/2023 Health Maintenance Due Date Last Done Comments COVID-19 Vaccine (#1) 03/18/1941 DXA Scan 11/30/2015 11/29/2012, 10/2009, 04/23/2010, Additional history exists DISCUSS TOBACCO CESSATION (REFER TO SMARTSET #1378) 12/13/2015 12/12/2014 (Discussed) Albumin/Creatinine Ratio 08/24/2021 021, 09/14/2018, 08/23/2017, Additional history exists Depression Screening 02/22/2023 02/22/2022, 01/20/2016, 12/12/2014 (Discussed) CKD PHOS USE SMARTSET 20468 03/17/202302/18, 08/06/2021, 09/23/2020, Additional history exists GFR 06/30/2023 12/28/2022, 02/18, 02/15/2022, Additional history exists DTaP,Tdap,and Td Vaccines (2 - Td or Tdap) 12/04/2023 12/03/2013, 03/25/2008, 11/18/1995 CKD HGB USE SMARTSET 79989 12/29/202312/28, 03/17/2022, 08/06/2021, Additional history exists Pneumococcal [...] Advance Directives occurred with: Patient Care Teams Still Pump Operator Relationship Specialty Start Date End Date Markus Clancy MD [address] [facility] [place] [address] PCP - General Family Medicine 10/25/17 documented as of this encounter
[2023-11-07 06:43] LABS: BUN Creatinine Ratio 19.5 (10-20); Calcium 7.6 mg/dl (8.6-10.3); Creatinine Clr Calc Pharmacy 36.8 ml/min; Est GFR (African American) 48.9 ml/min; Est GFR (Non-African American) 42.2 ml/min; Magnesium 1.5 mg/dl (1.7-2.4); Potassium 3.5 mmol/L (3.5-5.1)
[2023-11-07 06:50] LABS: Basophils # (auto) 0.01 K/uL (0.00-0.20); Basophils % (auto) 0.1 %; Dohle Bodies 1+; Echinocytes 1+; Hematocrit (blood only) 29.1 % (42.0-52.0); Hemoglobin 10.1 g/dl (14.0-18.0); Immature Granulocytes # (auto) 0.04 K/uL (0.01-0.20); Immature Granulocytes % (auto) 0.6 %; Lymphocytes # (auto) 0.38 K/uL (1.20-3.40); Lymphocytes % (auto) 5.4 %; Mean Corpuscular Hemoglobin 33.4 pg (25.0-34.0); Mean Corpuscular Hgb Conc 34.7 g/dL (32.0-36.0); Mean Corpuscular Volume 96.4 fL (80.0-100.0); Mean Platelet Volume 11.9 fL (9.4-12.4); Monocytes # (auto) 0.24 K/uL (0.11-0.59); Monocytes % (auto) 3.4 %; Neutrophils # (auto) 6.31 K/uL (1.40-6.50); Neutrophils % (auto) 90.5 %; Platelet Count 103 K/uL (130-400); RDW Coefficient of Variation 12.7 % (11.5-14.5); RDW Standard Deviation 44.7 fL (36.4-46.3); Red Blood Count 3.02 M/uL (4.70-6.10); White Blood Count 6.98 K/ul (4.8-10.8)
[2023-11-07 07:22] LABS: Estimated Average Glucose 128 mg/dl; Hemoglobin A1C 6.1 % (4.5-5.6)
[2023-11-07] MEDS: FINASTERIDE 5 MG TAB PO SCH (08:43)
[2023-11-07] MEDS: NICOTINE 21 MG/24 HR TDSY TD PRN (08:44)
[2023-11-07] MEDS: cefTRIAXone SODIUM 2,000 MG in DEXTROSE 5% 50 ML IV SCH (08:46)
[2023-11-07] MEDS: POLYETHYLENE (MIRALAX) 17 GM PACK PO SCH (08:47)
[2023-11-07] MEDS: AZITHROMYCIN 500 MG in DEXTROSE 5% 250 ML IV SCH (08:56)
--- NOTE | 2023-11-07 09:30 | Hospitalist Progress Note ---
Date of Service November 07, 2023 Assessment & Plan (1) Severe sepsis with acute organ dysfunction: (2) Community acquired pneumonia of left lower lobe of lung: (3) Acute kidney injury: (4) Myocardial infarction due to demand ischemia: (5) Acute hyperglycemia: (6) Constipation, unspecified: (7) Nicotine dependence: Plan Patient is an 83-year-old gentleman who presented with sepsis in the setting of pneumonia. Sepsis, POA CAP Pt presenting with tachycardia and fever, infectious source pulmonary lactate elevated, downtrended after fluid resuscitation Chest XRAY noting airspace opacity in LLL CT abd/pelvis noting LLL pneumonia Dedicated CT chest ordered and pending for AM IV Cefepime and Azithromycin Pulm consulted, appreciate recs Oxygen supplementation as needed Continue to monitor TROY Cr of 1.62 on admission, downtrended to 1.49 Baseline of 1.12 Was on IV fluids, held in setting of SOB Continue to monitor Anemia Hgb downtrending from 12.7 to 10.1 Consider further workup if persistent Prediabetes Hgba1c of 6.1 Continue to monitor glucose levels Hyomagnesemia- replete as needed Hypocalcemia-replete as needed Elevated Trop Demand ischemia Trop elevated at 58.7 to 79.5 EKG with NSR, RBBB Echo ordered Likely demand in setting of above, doubt ACS Hematuria UA noting blood and RBCs PCP followup Constipation Noted on imaging Bowel regimen AAA Noted on imaging, 3cm infrarenal PCP followup for continued monitoring Diet: heart healthy DVT prophylaxis: Lovenox SQ Dispo: PT/OT ordered for further recs Admission and Anticipated Discharge Date Admission Date: November 06, 2023 Subjective pt was seen multiple times during the day. Initially in the AM stated that he felt weak, could not move. Was not on oxygen at that time. Denied SOB at that time. Later notified by nursing that pt was occasionally using accessory muscles to breathe intermittently. Per pt, breathing actually feels better. Review of Systems Review of Systems: All systems reviewed & are unremarkable except as noted in Subjective Physical Exam Physical Exam: General: Alert, oriented Skin: No noted rashes or bruises Psych: Appropriate mood and affect Neuro: weakness and difficulty with movements in the bed HEENT: NC/AT CV: RRR Resp: Breath sounds coarse bilaterally Abdomen: Soft, nontender, nondistended Extremities:edema in lower extremities bilaterally. Results & Data Results & Data Vital Signs (Past 12 Hours) Vital Signs Temp Pulse Pulse Resp BP Pulse Ox O2 Del Method 11/07/23 07:29 37.2 C 72 21 118/69 96 Nasal Cannula 11/07/23 03:20 36.8 C 81 20 119/70 96 Nasal Cannula 11/07/23 01:19 85 11/06/23 23:24 Nasal Cannula 11/06/23 22:07 36.9 C 100 H 20 137/71 95 Room Air O2 Flow Rate 11/07/23 07:29 3 11/07/23 03:20 3.0 11/07/23 01:19 11/06/23 23:24 2 11/06/23 22:07 Diagnostic Findings Chest X-Ray 11/06/23 15:09 XR chest 1V portable CLINICAL HISTORY: Sepsis TECHNIQUE: Single frontal radiograph of the chest was obtained. Comparison: Comparison is made to chest radiograph 03/03/2023 FINDINGS: No lines and tubes are seen. The cardiomediastinal silhouette is normal. Airspace opacity is in the left lower lung. No evidence of pleural effusion or pneumothorax. IMPRESSION: Airspace opacity in the left lower lung. This may represent atelectasis, pneumonia, and/or aspiration. ACT 112: Negative or not required by law. Electronically signed by: Ruddy Clarke M.D. 11/06/2023 3:45 PM Abdomen/Pelvis CT 11/06/23 15:24 CT OF THE ABDOMEN AND PELVIS WITHOUT CONTRAST CLINICAL HISTORY: sepsis back pain with urinary sx COMPARISON STUDY: CT of the abdomen and pelvis December 10, 2017. TECHNIQUE: Axial images of the abdomen and pelvis were obtained without IV contrast. Images were reviewed in the axial, sagittal, and coronal planes. Automated exposure control was utilized for the study. A dose lowering technique was utilized adhering to the principles of ALARA. FINDINGS: Airspace opacities noted throughout visualized portions of the left lower lobe, including foci of consolidation and groundglass opacity. 4 mm subpleural right lower lobe nodule on image 22 of [address] of December 10, 2017. This is benign given stability. Emphysema within the lower lungs is present. No pneumatosis, free air or portal venous gas is noted. Several bilateral renal calculi measure up to 7 mm. There are no ureteral calculi. There is no hydronephrosis mild bladder wall thickening is present. This is likely chronic. Evaluation the remainder of the abdomen and pelvis is suboptimal on this unenhanced exam. Low-attenuation hepatic lesions are similar to prior CT and favor cysts. Nodularity left adrenal gland is unremarkable. Spleen, right adrenal gland pancreas are unremarkable. There is no biliary or pancreatic ductal dilatation. 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 There is a 3 cm infrarenal abdominal aortic aneurysm. Extensive sigmoid diverticulosis is noted without evidence for acute diverticulitis. There is a large amount of stool within the rectum. No bowel wall thickening is identified on unenhanced exam. There is symmetric bilateral perinephric stranding. The appendix is normal. There is no lymphadenopathy. Several old lower thoracic spine compression deformities are incidentally noted. No acute fractures within the lumbar spine, pelvis or hips. IMPRESSION: 1. Bilateral nephrolithiasis. No ureteral calculi or hydronephrosis. Symmetric bilateral perinephric infiltration, a nonspecific finding which could be correlated with urinalysis. 2. Airspace opacity throughout visualized portions of the left lower lobe suggestive of pneumonia. A follow-up chest CT in 2 months to ensure resolution is recommended. 3. Large amount of stool within the rectum. 4. Extensive sigmoid diverticulosis. No evidence for acute diverticulitis. 5. 3 cm infrarenal abdominal aortic aneurysm. ACT 112: Negative or not required by law. Electronically signed by: Eladio Sanders M.D. 11/06/2023 4:11 PM Chest X-Ray 11/07/23 16:23 XR chest 1V portable CLINICAL HISTORY: SOB TECHNIQUE: Single frontal radiograph of the chest was obtained. Comparison: Comparison is made to chest radiograph 11/06/2023 FINDINGS: No lines and tubes are seen. Aortic valvular prosthesis is seen. Airspace opacity is again seen in the left lower lung. Mild prominence of the pulmonary vasculature is seen. No evidence of pleural effusion or pneumothorax. IMPRESSION: 1. Cardiomegaly and mild pulmonary edema. This represents a slightly increased from the prior exam. 2. Stable left basilar opacity. ACT 112: Negative or not required by law. Electronically signed by: Ruddy Clarke M.D. 11/07/2023 4:55 PM
[2023-11-07] MEDS ORDERED: GLUCAGON FOR INJ 1 MG VIAL SQ PRN (09:31)
[2023-11-07] MEDS ORDERED: DEXTROSE 50% 50 ML SYRINGE IV PRN (09:31)
[2023-11-07] MEDS ORDERED: GLUCOSE 10 TAB/TUBE PO PRN (09:31)
[2023-11-07] MEDS ORDERED: GLUCOSE 40% GEL 15 GM TUBE PO PRN (09:31)
[2023-11-07] MEDS ORDERED: CARBOHYDRATES FOR HYPOGLYCEMIA PO PRN (09:31)
[2023-11-07] MEDS: ACETAMINOPHEN 325 MG TAB PO PRN (11:53)
[2023-11-07] MEDS: INSULIN ASPART PER UNIT CHARGE SC SCH (12:41)
--- NOTE | 2023-11-07 16:56 | XRay Report ---
XR chest 1V portable CLINICAL HISTORY: SOB TECHNIQUE: Single frontal radiograph of the chest was obtained. Comparison: Comparison is made to chest radiograph 11/06/2023 FINDINGS: No lines and tubes are seen. Aortic valvular prosthesis is seen. Airspace opacity is again seen in th e left lower lung. Mild prominence of the pulmonary vasculature is seen. No evidence of pleural effus ion or pneumothorax. IMPRESSION: 1. Cardiomegaly and mild pulmonary edema. This represents a slightly increased from the prior exam. 2. Stable left basilar opacity. ACT 112: Negative or not required by law. Electronically signed by: Ruddy Clarke M.D. 11/07/2023 4:55 PM
[2023-11-07 17:14] LABS: Base Excess VBG -3.4 mEq/L; HCO3 VBG 20 mmol/L; Oxygen Saturation VBG < 60.0 %; PCO2 VBG 31 mmHg (38-50); PO2 VBG < 20 mmHg; pH VBG 7.42 (7.36-7.41)
[2023-11-07] MEDS ORDERED: CALCIUM CARBONATE 500 MG CHEWABLE TAB PO PRN (18:02)
[2023-11-07] MEDS: FUROSEMIDE INJ 20 MG/2 ML VIAL IV ONE (19:54)
[2023-11-07] MEDS: CEFEPIME 2,000 MG in SYRINGE 0 ML IV SCH (21:15)
[2023-11-07] MEDS: MAGNESIUM OXIDE 400 MG TAB PO SCH (21:15)
[2023-11-07] MEDS: POTASSIUM CHLORIDE PWD 20 MEQ PACK PO STA (21:16)
[2023-11-07] MEDS: MAGNESIUM SULFATE / D5W 1 GM/100 ML BAG IV SCH (21:16)
[2023-11-07] MEDS: ALBUT/IPRATROP 3MG/0.5MG NEB 3 ML VIAL NEB STA (21:35)
[2023-11-07] MEDS: traZODone HCL 50 MG TAB PO SCH (22:33)
[2023-11-08] MEDS: ALBUMIN 25% 12.5 GM/50 ML VIAL IV ONE (02:45)
[2023-11-08 08:25] LABS: Basophils # (auto) 0.01 K/uL (0.00-0.20); Basophils % (auto) 0.2 %; Hematocrit (blood only) 29.6 % (42.0-52.0); Hemoglobin 10.3 g/dl (14.0-18.0); Immature Granulocytes # (auto) 0.04 K/uL (0.01-0.20); Immature Granulocytes % (auto) 0.7 %; Lymphocytes # (auto) 0.33 K/uL (1.20-3.40); Lymphocytes % (auto) 5.9 %; Mean Corpuscular Hemoglobin 32.8 pg (25.0-34.0); Mean Corpuscular Hgb Conc 34.8 g/dL (32.0-36.0); Mean Corpuscular Volume 94.3 fL (80.0-100.0); Mean Platelet Volume 11.6 fL (9.4-12.4); Monocytes # (auto) 0.17 K/uL (0.11-0.59); Neutrophils # (auto) 5.03 K/uL (1.40-6.50); Neutrophils % (auto) 90.2 %; Platelet Count 111 K/uL (130-400); RDW Coefficient of Variation 12.9 % (11.5-14.5); RDW Standard Deviation 44.6 fL (36.4-46.3); Red Blood Count 3.14 M/uL (4.70-6.10); White Blood Count 5.58 K/ul (4.8-10.8)
[2023-11-08 08:36] LABS: Albumin Level 3.2 gm/dl (3.4-5.0); BUN Creatinine Ratio 19.5 (10-20); Bilirubin,Total 0.5 mg/dl (0.2-1.0); Calcium 7.9 mg/dl (8.6-10.3); Creatinine Clr Calc Pharmacy 35.9 ml/min; Est GFR (African American) 48.9 ml/min; Est GFR (Non-African American) 42.2 ml/min; Globulin 3.2 gm/dl (2.5-4.0); Magnesium 2.2 mg/dl (1.7-2.4); Phosphorus 1.6 mg/dl (2.5-4.9); Potassium 3.4 mmol/L (3.5-5.1); Total Protein 6.4 gm/dl (6.0-8.3)
[2023-11-08] MEDS: DOCUSATE SODIUM/SENNA 50/8.6MG TAB PO SCH (09:09)
--- NOTE | 2023-11-08 09:14 | Hospitalist Progress Note ---
Date of Service November 08, 2023 Assessment & Plan (1) Severe sepsis with acute organ dysfunction: (2) Community acquired pneumonia of left lower lobe of lung: (3) Acute kidney injury: (4) Myocardial infarction due to demand ischemia: (5) Acute hyperglycemia: (6) Constipation, unspecified: (7) Nicotine dependence: Plan Patient is an 83 yo M who presented with sepsis in the setting of pneumonia. Sepsis, POA CAP Pt presenting with tachycardia and fever, infectious source pulmonary lactate elevated, downtrended after fluid resuscitation Chest XRAY noting airspace opacity in LLL CT abd/pelvis noting LLL pneumonia Dedicated CT chest obtained - Consolidation in the left lower lobe compatible with pneumonia. There is a small left pleural effusion. Emphysema is seen. Additional findings as above. IV Cefepime and Azithromycin Pulm consulted - stopped cefepime, switched azithro to oral, increased guaifenesin Oxygen supplementation as needed Continue to monitor TROY Cr of 1.62 on admission, downtrended to 1.49 Baseline of 1.12 Was on IV fluids, held in setting of SOB Continue to monitor Anemia Hgb downtrending from 12.7 to 10.1 Consider further workup if persistent Prediabetes Hgba1c of 6.1 Continue to monitor glucose levels Hyomagnesemia- replete and monitor Hypocalcemia-replete and monitor Elevated Trop Demand ischemia Trop elevated at 58.7 to 79.5 EKG with NSR, RBBB Echo obtained - LVEF 60 to 65%. LV wall motion is abnormal. Mild tricuspid regurg. Doppler findings do not suggest pulmonary hypertension. Likely demand in setting of above, doubt ACS Hematuria UA noting blood and RBCs PCP followup Constipation Noted on imaging Bowel regimen AAA Noted on imaging, 3cm infrarenal PCP followup for continued monitoring Diet: heart healthy DVT prophylaxis: Lovenox SQ Dispo: PT/OT ordered for further recs Admission and Anticipated Discharge Date Admission Date: November 06, 2023 Subjective Pt seen in follow up of sepsis, CAP Initially on RA, now hypoxic, also febrile, pulmonary consulted. Ceftriaxone switched to cefepime yesterday. Currently pt is laying in bed, in NAD, on suppl. O2 2L (previously on 4L) he says he feels tired Previously very independent now has difficulty sitting up for exam. Per RN pt did ambulate in hallway Denies chest pain, abd. pain, n/v Seen by pulm - cefepime stopped, azithro switched to oral Review of Systems Review of Systems: All systems reviewed & are unremarkable except as noted in Subjective Physical Exam Physical Exam: General: slim M in NAD,+ chronically ill appearing, + on suppl. O2 HEENT: NC/AT CV: RRR Resp: + mild exp. wheezes noted Abdomen: Soft, nontender, nondistended Extremities: edema in lower extremities bilaterally. Neuro: awake, alert, answers appropriately, moves extremities but generally weak Psych: Appropriate mood and affect Skin: warm, dry Results & Data Results & Data Vital Signs (Past 12 Hours) Vital Signs Temp Pulse Resp BP Pulse Ox O2 Del Method O2 Flow Rate 11/08/23 07:15 37.8 C H 83 19 145/78 H 99 Nasal Cannula 4.0 11/08/23 03:23 36.6 C 93 H 20 140/73 91 Nasal Cannula 3 11/07/23 22:58 36.9 C 105 H 18 155/76 H 95 Nasal Cannula 3 11/07/23 21:35 91 H 18 96 Nasal Cannula 2 Laboratory Results 11/08/23 11/08/23 11/07/23 Range/Units 08:00 07:04 20:28 WBC 5.58 (4.8-10.8) K/ul RBC 3.14 L (4.70-6.10) M/uL Hgb 10.3 L (14.0-18.0) g/dl Hct 29.6 L (42.0-52.0) % MCV 94.3 (80.0-100.0) fL MCH 32.8 (25.0-34.0) pg MCHC 34.8 (32.0-36.0) g/dL RDW Std Deviation 44.6 (36.4-46.3) fL RDW Coeff of Markos 12.9 (11.5-14.5) % Plt Count 111 L (130-400) K/uL MPV 11.6 (9.4-12.4) fL Immature Gran % (Auto) 0.7 % Neut % (Auto) 90.2 % Lymph % (Auto) 5.9 % [place] % (Auto) 3.0 % Eos % (Auto) 0.0 % Baso % (Auto) 0.2 % Neut # (Auto) 5.03 (1.40-6.50) K/uL Lymph # (Auto) 0.33 L (1.20-3.40) K/uL [place] # (Auto) 0.17 (0.11-0.59) K/uL Eos # (Auto) 0.00 (0.00-0.50) K/uL Baso # (Auto) 0.01 (0.00-0.20) K/uL Immature Gran # (Auto) 0.04 (0.01-0.20) K/uL VBG pH (7.36-7.41) VBG pCO2 (38-50) mmHg VBG pO2 mmHg VBG HCO3 mmol/L VBG O2 Saturation % VBG Base Excess mEq/L Sodium 134 L (136-145) mmol/L Potassium 3.4 L (3.5-5.1) mmol/L Chloride 105 (98-107) mmol/L Carbon Dioxide 21 (21-32) mmol/L Anion Gap 8 (3-11) BUN 29 H (6-23) mg/dl Creatinine 1.49 H (0.6-1.4) mg/dl Est Cr Clr Drug Dosing 35.9 ml/min Est GFR ( Amer) 48.9 ml/min Est GFR (Non-Af Amer) 42.2 ml/min BUN/Creatinine Ratio 19.5 (10-20) Glucose 135 H (70-99(Fasting)) mg/dl POC Glucose 138 H 180 H (70-99) mg/dl Calcium 7.9 L (8.6-10.3) mg/dl Phosphorus 1.6 L (2.5-4.9) mg/dl Magnesium 2.2 (1.7-2.4) mg/dl Total Bilirubin 0.5 (0.2-1.0) mg/dl AST 102 H (13-39) U/L ALT 47 (7-52) U/L Alkaline Phosphatase 57 (34-104) U/L Total Protein 6.4 D (6.0-8.3) gm/dl Albumin 3.2 L (3.4-5.0) gm/dl Globulin 3.2 (2.5-4.0) gm/dl Albumin/Globulin Ratio 1.0 (0.9-2) 05/21/24 05/21/24 05/21/24 Range/Units 17:20 16:54 12:04 WBC (4.8-10.8) K/ul RBC (4.70-6.10) M/uL Hgb (14.0-18.0) g/dl Hct (42.0-52.0) % MCV (80.0-100.0) fL MCH (25.0-34.0) pg MCHC (32.0-36.0) g/dL RDW Std Deviation (36.4-46.3) fL RDW Coeff of Markos (11.5-14.5) % Plt Count (130-400) K/uL MPV (9.4-12.4) fL Immature Gran % (Auto) % Neut % (Auto) % Lymph % (Auto) % [place] % (Auto) % Eos % (Auto) % Baso % (Auto) % Neut # (Auto) (1.40-6.50) K/uL Lymph # (Auto) (1.20-3.40) K/uL [place] # (Auto) (0.11-0.59) K/uL Eos # (Auto) (0.00-0.50) K/uL Baso # (Auto) (0.00-0.20) K/uL Immature Gran # (Auto) (0.01-0.20) K/uL VBG pH 7.42 H (7.36-7.41) VBG pCO2 31 L (38-50) mmHg VBG pO2 < 20 mmHg VBG HCO3 20 mmol/L VBG O2 Saturation < 60.0 % VBG Base Excess -3.4 mEq/L Sodium (136-145) mmol/L Potassium (3.5-5.1) mmol/L Chloride (98-107) mmol/L Carbon Dioxide (21-32) mmol/L Anion Gap (3-11) BUN (6-23) mg/dl Creatinine (0.6-1.4) mg/dl Est Cr Clr Drug Dosing ml/min Est GFR ( Amer) ml/min Est GFR (Non-Af Amer) ml/min BUN/Creatinine Ratio (10-20) Glucose (70-99(Fasting)) mg/dl POC Glucose 110 H 111 H (70-99) mg/dl Calcium (8.6-10.3) mg/dl Phosphorus (2.5-4.9) mg/dl Magnesium (1.7-2.4) mg/dl Total Bilirubin (0.2-1.0) mg/dl AST (13-39) U/L ALT (7-52) U/L Alkaline Phosphatase (34-104) U/L Total Protein (6.0-8.3) gm/dl Albumin (3.4-5.0) gm/dl Globulin (2.5-4.0) gm/dl Albumin/Globulin Ratio (0.9-2) Medications Administered Current Inpatient Medications Acetaminophen (Acetaminophen 325 Mg Tab) 650 mg PO Q4H PRN PRN Reason: Pain or Fever Stop: 12/06/23 19:13 Last Admin: 11/07/23 17:52 Dose: 650 mg Albuterol (Albut/Ipratrop 3mg/0.5mg Neb 3 Ml Vial) 3 ml NEB Q4 PRN; Protocol PRN Reason: Shortness Of Breath Or Wheezing Stop: 12/06/23 19:13 Aspirin (Aspirin 81 Mg Ectab) 81 mg PO QAM [facility] Stop: 12/06/23 19:13 Last Admin: 11/07/23 08:42 Dose: 81 mg Atorvastatin Calcium (Atorvastatin 40 Mg Tab) 40 mg PO HS KING Stop: 12/06/23 20:59 Last Admin: 11/07/23 22:33 Dose: 40 mg Calcium Carbonate (Calcium Carbonate 500 Mg Chewable Tab) 500 mg PO Q8H PRN PRN Reason: Indigestion Stop: 12/07/23 18:01 Dextrose (Dextrose 50% 50 Ml Syringe) 25 - 50 ml IV UD PRN; Protocol PRN Reason: Hypoglycemia Protocol Stop: 12/07/23 09:30 Enoxaparin Sodium (Enoxaparin Inj 40 Mg/0.4 Ml Syr) 40 mg SQ Q24H [facility] Stop: 12/06/23 19:13 Last Admin: 11/07/23 19:54 Dose: 40 mg Finasteride (Finasteride 5 Mg Tab) 5 mg PO QAM KING Stop: 12/07/23 08:59 Last Admin: 11/07/23 08:43 Dose: 5 mg Glucagon (Glucagon For Inj 1 Mg Vial) 1 mg SQ UD PRN; Protocol PRN Reason: Hypoglycemia Protocol Stop: 12/07/23 09:30 Glucose (Glucose 40% Gel 15 Gm Tube) 15 - 30 gm PO UD PRN; Protocol PRN Reason: Hypoglycemia Protocol Stop: 12/07/23 09:30 Glucose (Glucose 10 Tab/Tube) 4 - 8 tab PO UD PRN; Protocol PRN Reason: Hypoglycemia Treatment Stop: 12/07/23 09:30 Guaifenesin (Guaifenesin 600 Mg Tabcr) 600 mg PO Q12 KING Stop: 12/06/23 20:59 Last Admin: 11/07/23 21:17 Dose: 600 mg Azithromycin 500 mg/ Dextrose 255 mls @ 125 mls/hr IV Q24H [facility]; Protocol Stop: 11/10/23 11:03 Last Infusion: 11/07/23 11:11 Dose: Infused Cefepime HCl 2,000 mg/ Syringe 20 mls @ 5 mls/min IV Q12H [facility]; Protocol Stop: 11/14/23 18:59 Last Admin: 11/07/23 21:15 Dose: 5 mls/min Insulin Aspart (Insulin Aspart Per Unit Charge) 0 units SC ACHS [facility] Stop: 12/07/23 11:29 Last Admin: 11/08/23 08:47 Dose: Not Given Magnesium Oxide (Magnesium Oxide 400 Mg Tab) 400 mg PO BID [facility] Stop: 12/07/23 20:59 Last Admin: 11/07/23 21:15 Dose: 400 mg Melatonin (Melatonin 3 Mg Tab) 6 mg PO HS PRN PRN Reason: Sleep Stop: 12/06/23 19:13 Miscellaneous (Remove Nicoderm Patch) 1 each N/A DAILY@0859 [facility] Stop: 12/07/23 08:58 Last Admin: 11/07/23 08:48 Dose: Not Given Miscellaneous (Carbohydrates For Hypoglycemia ) 15 - 30 gm PO UD PRN PRN Reason: Hypoglycemia Protocol Stop: 12/07/23 09:30 Nicotine (Nicotine 21 Mg/24 Hr Tdsy) 1 patch TD QAM PRN PRN Reason: Nicotine cravings Stop: 12/06/23 19:13 Last Admin: 11/07/23 08:44 Dose: 1 patch Ondansetron HCl (Ondansetron Inj 2 Mg/Ml 2 Ml Vial) 4 mg IV Q6H PRN PRN Reason: Nausea Stop: 12/06/23 19:13 Polyethylene Glycol (Polyethylene (Miralax) 17 Gm Pack) 17 gm PO DAILY [facility] Stop: 12/07/23 08:59 Last Admin: 11/07/23 08:47 Dose: Not Given Senna/Docusate Sodium (Docusate Sodium/Senna 50/8.6mg Tab) 1 tab PO QAM KING Stop: 12/08/23 08:59 Tramadol HCl (Tramadol Hcl 50 Mg Tablet) 50 mg PO Q6 PRN PRN Reason: Pain Stop: 12/06/23 19:13 Last Admin: 11/06/23 19:34 Dose: 50 mg Trazodone HCl (Trazodone Hcl 50 Mg Tab) 50 mg PO HS KING Stop: 12/07/23 20:59 Last Admin: 11/07/23 22:33 Dose: 50 mg
[2023-11-08] MEDS: POTASSIUM CHLORIDE CRTAB 20 MEQ TABCR PO STA (09:46)
--- NOTE | 2023-11-08 12:22 | CT Scan Report ---
CT chest diagnostic wo con CLINICAL HISTORY: SOB, hypoxia TECHNIQUE: Multidetector row helical CT of the chest was performed. Coronal and sagittal reformations were obtained. Automated dose lowering techniques and/or adjustment according to patient size were u tilized for this exam. CT DOSE: 337.05 mGy.cm Comparison: Comparison is made to CT chest 12/10/2017 FINDINGS: Lungs and pleura: Diffuse centrilobular emphysema is seen most prominent in the upper lobes. There is a small left pleural effusion. Consolidation is in the left lower lobe. There is a 3 mm nodule in th e left upper lobe (series 4 image 78), a 3 mm nodule right upper lobe (image 98), and a 4 mm nodule i n the right lower lobe (image 161). Heart and pericardium: Heart size is normal. No pericardial effusion. Vessels: Ascending and descending aorta are enlarged up to 41 mm. Moderate atherosclerotic disease is seen. Mediastinum and kofi: Subcentimeter lymph nodes are seen. Chest wall and lower neck: Unremarkable. Abdomen: A hiatal hernia is seen. Hepatic cysts are seen. Gallbladder is contracted but otherwise unr emarkable. Nodular thickening in the left renal gland is seen. Bones: Degenerative changes are seen with chronic appearing compression deformities. IMPRESSION: Consolidation in the left lower lobe compatible with pneumonia. There is a small left pleural effusio n. Emphysema is seen. Additional findings as above. ACT 112: Negative or not required by law. Electronically signed by: Ruddy Clarke M.D. 11/08/2023 12:21 PM
--- NOTE | 2023-11-08 12:54 | Pulmonary Consultation ---
Date of Consultation November 08, 2023 Assessment & Plan (1) Community acquired pneumonia of left lower lobe of lung: (2) Nicotine dependence: Plan Impression: 83-year-old with significant history of tobacco exposure admitted now with left lower lobe pneumonia identified on CT scan and chest x-ray. Recommendations: 1. Community-acquired pneumonia: De-escalate antibiotics. Change azithromycin to oral. No need for antipseudomonal coverage. Transition to Ceftin. Anticipate antibiotics for 7 to 10 days. 2. Smoking cessation was recommended the patient. He states he is not going to consider smoking cessation given his advanced age and extensive smoking history. Outpatient PFTs could be considered in this patient. He is not bronchospastic currently. 3. Continue pulmonary toilet. Increase Mucinex to 1200 mg twice a day. If he has continued issues, consideration for hypertonic saline might be appropriate as well as a flutter valve. 4. The patient should have a follow-up chest x-ray or CT scan performed in about 4 to 6 weeks to ensure resolution of the basilar airspace opacities. Evaluation management of the patient's other medical issues is deferred to the primary admitting service. Thanks for the opportunity to participate in the care of this patient. Will follow with you to ensure he is responding appropriately but anticipate he can likely be dismissed from the hospital in the next 24 to 48 hours History of Present Illness Attending Physician: Epifanio Redmond MD History of Present Illness Asked by hospitalist to assist in evaluation management this patient with pneumonia and hypoxemia. History is obtained from discussion with the patient as well as review the electronic medical record. Patient is an 83-year-old male with a [id number] history of tobacco abuse who continues to smoke at the rate of 1.5 packs/day. He does not use oxygen at home or inhalers. He is never had PFTs performed previously. He lives ind ependently. He is able to accomplish his activities of daily living without significant compromise. Patient presented to the hospital 11/06/2023 at the request of his primary care provider. He was seen with weakness and fatigue. There was concern about a possible urinary tract infection. Chest x-ray on presentation in the emergency room showed a left lower lobe airspace opacity. Lactate was elevated and procalcitonin was elevated. He received antibiotics. He does not report any aspiration events. Over the next 24 hours he developed some increasing use of respiratory muscles which prompted pulmonary consultation. The patient states that currently he feels his breathing is much improved. He is coughing but unable to expectorate significant phlegm. He is not had any hemoptysis. No chest pain or palpitations. He denies fevers chills or night sweats. His appetite is good. He thinks he would like to target getting out of the hospital in the next 48 hours if possible. Allergies Allergy/AdvReac Type Severity Reaction Status Date / Time pravastatin Allergy Unknown RASH HIVES Verified 11/06/23 16:53 ITCHING omeprazole Allergy Rash Verified 11/06/23 16:55 Home Medications Medication Instructions Recorded Confirmed Type acetaminophen 650 mg 650 mg PO Q8 PRN Pain 11/06/23 11/06/23 History tablet,extended release (Tylenol Arthritis Pain) aspirin 81 mg chewable tablet 81 mg PO DAILY 11/06/23 11/06/23 History atorvastatin 40 mg tablet 40 mg PO HS 11/06/23 11/06/23 History cholecalciferol (vitamin D3) 25 25 mcg PO DAILY 11/06/23 11/06/23 History mcg (1,000 unit) tablet (Vitamin D3) cyanocobalamin (vitamin B-12) 1,000 mcg PO DAILY 11/06/23 11/06/23 History 1,000 mcg tablet (Vitamin B-12) finasteride 5 mg tablet 5 mg PO QAM 11/06/23 11/06/23 History multivitamin 1 tab PO DAILY 11/06/23 11/06/23 History tramadol 50 mg tablet 50 mg PO AMHS 11/06/23 11/06/23 History trazodone 50 mg tablet 50 mg PO HS 11/06/23 11/06/23 History Patient History Medical History Hx SBO Osteoarthritis Kidney stones BPH (benign prostatic hyperplasia) GERD (gastroesophageal reflux disease) Lyme disease 5 years ago - treated Hyperlipidemia Surgical History History of prostate surgery History of cataract surgery LEFT CATARACT. 06/20/2018. 2mg versed. no issues. History of laparoscopy relieve SBO History of sinus surgery History of repair of rotator cuff left History of lithotripsy History of colonoscopy Social History Smoking Status: Current every day smoker Tobacco Type: Cigarettes Cigarettes Per Day: 1.5 packs; Second Hand Exposure: Yes; Do You Dip or Chew Tobacco: No; Hx Alcohol Use: No Hx Substance Use: No Preferred Language: Estonian Communication Ability: Effective Fagot Maker Required: No Beliefs That Will Affect Care: None Current Living Situation: Alone Other Information That Helps Us Care for You: No Feels Safe at Home: Yes Safety Concerns: Feels Safe At This Time Assistive Devices: None Review of Systems Review of Systems: Please refer to admission H&P. No additions or deletions Physical Exam Constitutional: WD/WN, vitals as above Neck: trachea midline, no thyromegaly Respiratory: normal respiratory effort, lungs clear to auscultation Cardiovascular: RRR, no murmur, no edema Gastrointestinal (Abdomen): normal bowel sounds, soft, nontender, no hepatosplenomegaly Musculoskeletal: Extremities: extremities normal to inspection Skin: no rashes, warm and dry Neurologic: Nonfocal exam Lymphatic: no cervical lymphadenopathy Results & Data Results & Data Vital Signs (Past 12 Hours) Vital Signs Temp Pulse Pulse Resp BP Pulse Ox O2 Del Method 11/08/23 11:41 36.7 C 81 18 133/79 98 Nasal Cannula 11/08/23 10:24 75 11/08/23 10:24 Nasal Cannula 11/08/23 07:15 37.8 C H 83 19 145/78 H 99 Nasal Cannula 11/08/23 03:23 36.6 C 93 H 20 140/73 91 Nasal Cannula O2 Flow Rate 11/08/23 11:41 4.0 11/08/23 10:24 11/08/23 10:24 3 11/08/23 07:15 4.0 11/08/23 03:23 3 Critical Care Results & Data Vital Signs (Past 12 Hours) Vital Signs Temp Pulse Pulse Resp BP Pulse Ox O2 Del Method 11/08/23 11:41 36.7 C 81 18 133/79 98 Nasal Cannula 11/08/23 10:24 75 11/08/23 10:24 Nasal Cannula 11/08/23 07:15 37.8 C H 83 19 145/78 H 99 Nasal Cannula 11/08/23 03:23 36.6 C 93 H 20 140/73 91 Nasal Cannula O2 Flow Rate 11/08/23 11:41 4.0 11/08/23 10:24 11/08/23 10:24 3 11/08/23 07:15 4.0 11/08/23 03:23 3 Lab & Micro Results (Past 24 Hours) RBC 3.14 M/uL (4.70-6.10) L 11/08/23 WBC 5.58 K/ul (4.8-10.8) 11/08/23 Hgb 10.3 g/dl (14.0-18.0) L 11/08/23 Hct 29.6 % (42.0-52.0) L 11/08/23 MCV 94.3 fL (80.0-100.0) 11/08/23 MCH 32.8 pg (25.0-34.0) 11/08/23 MCHC 34.8 g/dL (32.0-36.0) 11/08/23 RDW Standard Deviation 44.6 fL (36.4-46.3) 11/08/23 RDW Coefficient of Variation 12.9 % (11.5-14.5) 11/08/23 Plt Count 111 K/uL (130-400) L 11/08/23 MPV 11.6 fL (9.4-12.4) 11/08/23 Neutrophils (%) (Auto) 90.2 % 11/08/23 Lymphocytes (%) (Auto) 5.9 % 11/08/23 Monocytes # (Auto) 0.17 K/uL (0.11-0.59) 11/08/23 Eosinophils # (Auto) 0.00 K/uL (0.00-0.50) 11/08/23 Immature Granulocyte % (Auto) 0.7 % 11/08/23 Neutrophils # (Auto) 5.03 K/uL (1.40-6.50) 11/08/23 Lymphocytes # (Auto) 0.33 K/uL (1.20-3.40) L 11/08/23 Monocytes # (Auto) 0.17 K/uL (0.11-0.59) 11/08/23 Eosinophils # (Auto) 0.00 K/uL (0.00-0.50) 11/08/23 Basophils # (Auto) 0.01 K/uL (0.00-0.20) 11/08/23 Immature Granulocyte # (Auto) 0.04 K/uL (0.01-0.20) 4 Na 134 mmol/L (136-145) L 11/08/23 K 3.4 mmol/L (3.5-5.1) L 11/08/23 Cl 105 mmol/L (98-107) 11/08/23 CO2 21 mmol/L (21-32) 11/08/23 Anion Gap 8 (3-11) 11/08/23 BUN 29 mg/dl (6-23) H 11/08/23 Creatinine 1.49 mg/dl (0.6-1.4) H 11/08/23 Estimated GFR ( Amer) 48.9 ml/min 11/08/23 Estimated GFR (Non-Af Amer) 42.2 ml/min 11/08/23 BUN/Creatinine Ratio 19.5 (10-20) 11/08/23 Glu 135 mg/dl (70-99(Fasting)) H 11/08/23 Ca 7.9 mg/dl (8.6-10.3) L 11/08/23 Phosphorus Level 1.6 mg/dl (2.5-4.9) L 11/08/23 Total Bilirubin 0.5 mg/dl (0.2-1.0) 11/08/23 AST 102 U/L (13-39) H 11/08/23 ALT 47 U/L (7-52) 11/08/23 Alkaline Phosphatase 57 U/L (34-104) 11/08/23 TP 6.4 gm/dl (6.0-8.3) 11/08/23 Albumin 3.2 gm/dl (3.4-5.0) L 11/08/23 Globulin 3.2 gm/dl (2.5-4.0) 11/08/23 Albumin/Globulin Ratio 1.0 (0.9-2) 11/08/23 Mg 2.2 mg/dl (1.7-2.4) 11/08/23 07:04 Calcium Level 7.9 mg/dl (8.6-10.3) L 11/08/23 07:04 Venous Blood pH 7.42 (7.36-7.41) H 05/21/24 16:54 Venous Blood Partial Pressure CO2 31 mmHg (38-50) L 11/07/23 16 :54 Venous Blood Partial Pressure O2 < 20 mmHg 11/07/23 16:54 Venous Blood HCO3 20 mmol/L 11/07/23 16:54 Venous Blood Base Excess -3.4 mEq/L 11/07/23 16:54 Venous Blood Oxygen Saturation < 60.0 % 11/07/23 16:54 Microbiology 11/06/23 15:25 Aerobic Blood Culture - Preliminary Blood No growth in Aerobic bottle after 24 hours. Anaerobic Blood Culture - Preliminary No growth in Anaerobic bottle after 24 hours. 11/06/23 15:25 Aerobic Blood Culture - Preliminary Blood No growth in Aerobic bottle after 24 hours. Anaerobic Blood Culture - Preliminary No growth in Anaerobic bottle after 24 hours. Diagnostic Findings (Past 24 Hours) Chest X-Ray 11/07/23 16:23 XR chest 1V portable CLINICAL HISTORY: SOB TECHNIQUE: Single frontal radiograph of the chest was obtained. Comparison: Comparison is made to chest radiograph 11/06/2023 FINDINGS: No lines and tubes are seen. Aortic valvular prosthesis is seen. Airspace opacity is again seen in the left lower lung. Mild prominence of the pulmonary vasculature is seen. No evidence of pleural effusion or pneumothorax. IMPRESSION: 1. Cardiomegaly and mild pulmonary edema. This represents a slightly increased from the prior exam. 2. Stable left basilar opacity. ACT 112: Negative or not required by law. Electronically signed by: Ruddy Clarke M.D. 11/07/2023 4:[address] 11/08/23 08:00 CT chest diagnostic wo con CLINICAL HISTORY: SOB, hypoxia TECHNIQUE: Multidetector row helical CT of the chest was performed. Coronal and sagittal reformations were obtained. Automated dose lowering techniques and/or adjustment according to patient size were utilized for this exam. CT DOSE: 337.05 mGy.cm Comparison: Comparison is made to CT chest 12/10/2017 FINDINGS: Lungs and pleura: Diffuse centrilobular emphysema is seen most prominent in the upper lobes. There is a small left pleural effusion. Consolidation is in the left lower lobe. There is a 3 mm nodule in the left upper lobe (series 4 image 78), a 3 mm nodule right upper lobe (image 98), and a 4 mm nodule in the right lower lobe (image 161). Heart and pericardium: Heart size is normal. No pericardial effusion. Vessels: Ascending and descending aorta are enlarged up to 41 mm. Moderate at herosclerotic disease is seen. Mediastinum and kofi: Subcentimeter lymph nodes are seen. Chest wall and lower neck: Unremarkable. Abdomen: A hiatal hernia is seen. Hepatic cysts are seen. Gallbladder is contracted but otherwise unremarkable. Nodular thickening in the left renal gland is seen. Bones: Degenerative changes are seen with chronic appearing compression deformities. IMPRESSION: Consolidation in the left lower lobe compatible with pneumonia. There is a small left pleural effusion. Emphysema is seen. Additional findings as above. ACT 112: Negative or not required by law. Electronically signed by: Ruddy Clarke M.D. 11/08/2023 12:21 PM I & O Totals 24 Hours 11/07/23 11/08/23 11/09/23 06:59 06:59 06:59 Intake Total 3290 / 3290 2245 / 2245 255 / 255 Output Total 426 / 426 2051 / 2051 Balance 2864 / 2864 193 / 193 255 / 255 Cumulative 11/06/23 14:57 thru 11/08/23 11:48 Intake Total 5790 Output Total 2478 Balance 3312 RT Ventilator Mngmt (Last Documented) Ventilator Ordered Settings Respiratory Rate 18 11/08/23 11:41 Ventilator - PT Measurements Respiratory Rate 18 PG Care Time/CCT Total # of Minutes Spent Total Time Spent with Patient: Total time spent is greater than 50% in coordination of care (as documented) at patient's floor/unit and/or counseling patient: Coding Level of Care Code 45393 INT INP/OBS CARE 3/75MIN Diagnoses Community acquired pneumonia of left lower lobe of lung J18.9 Nicotine dependence F17.200
[2023-11-08] MEDS: POT PHOSPHATE MONOBASIC W/ SOD TAB PO SCH (13:10)
[2023-11-08] MEDS: cefUROXime axetil 500 MG TAB PO SCH (19:59)
[2023-11-08] MEDS: guaiFENesin 600 MG TABCR PO SCH (19:59)
[2023-11-09 07:53] LABS: Hematocrit (blood only) 29.6 % (42.0-52.0); Hemoglobin 10.3 g/dl (14.0-18.0); Mean Corpuscular Hemoglobin 32.6 pg (25.0-34.0); Mean Corpuscular Hgb Conc 34.8 g/dL (32.0-36.0); Mean Corpuscular Volume 93.7 fL (80.0-100.0); Mean Platelet Volume 11.5 fL (9.4-12.4); Platelet Count 121 K/uL (130-400); RDW Coefficient of Variation 12.9 % (11.5-14.5); RDW Standard Deviation 44.2 fL (36.4-46.3); Red Blood Count 3.16 M/uL (4.70-6.10); White Blood Count 5.76 K/ul (4.8-10.8)
[2023-11-09 08:15] LABS: Calcium 8.1 mg/dl (8.6-10.3); Creatinine Clr Calc Pharmacy 38.2 ml/min; Est GFR (African American) 52.7 ml/min; Est GFR (Non-African American) 45.5 ml/min; Magnesium 2.1 mg/dl (1.7-2.4); Phosphorus 1.7 mg/dl (2.5-4.9); Potassium 3.5 mmol/L (3.5-5.1)
--- NOTE | 2023-11-09 08:57 | Pulmonology Progress Note ---
Date of Service November 09, 2023 Assessment & Plan (1) Community acquired pneumonia of left lower lobe of lung: (2) Nicotine dependence: Plan Impression: 83-year-old with significant history of tobacco exposure admitted now with left lower lobe pneumonia identified on CT scan and chest x-ray. Recommendations: 1. Community-acquired pneumonia: Patient feeling much better at this time. He is saturating well on room air. He is ambulating around the room without issue. Continue completion of course of azithromycin and Ceftin in the outpatient setting for a total of 7 to 10 days. 2. Smoking cessation was recommended the patient. He states he is not going to consider smoking cessation given his advanced age and extensive smoking history. Outpatient PFTs could be considered in this patient. He is not bronchospastic currently. 3. Continue pulmonary toilet. Increase Mucinex to 1200 mg twice a day. If he has continued issues, consideration for hypertonic saline might be appropriate as well as a flutter valve. 4. The patient should have a follow-up chest x-ray or CT scan performed in about 4 to 6 weeks to ensure resolution of the basilar airspace opacities. Thank you for allowing us to participate in the care of this pleasant patient. Patient is stable for discharge from a pulmonary perspective at this time. Pulmonary medicine will sign off at this time. Admission and Anticipated Discharge Date Admission Date: November 06, 2023 Supervising Physician Co-Signing Physician Notes Agree with AP as noted by CARLI. responding well. complete course of abx and recommend follow up imaging in 2-4 weeks to document resolution. Happy to follow up in the outpatinet setting if needed. Pulmonary to sign off. Subjective Patient seen and evaluated at bedside. He reports feeling well. He states that he was ambulating throughout the department without issue. He denies complaints of chest pain, palpitations, dizziness, lightheadedness, pleuritic pain, or hemoptysis. The patient is anxious to be discharged home. Review of Systems Review of Systems: Please refer to admission H&P. No additions or deletions Physical Exam Physical Exam: VITAL SIGNS Vital signs and nursing notes were reviewed. GENERAL 83-year-old male appearing his stated age who is in no acute distress. Communicates well with provider and answers questions appropriately. LUNGS Auscultation reveals coarse breath sounds at the lung bases bilaterally. CARDIAC RRR with S1/S2. No murmur, rubs, or gallops appreciated. EXTREMITIES Nail clubbing not present. No peripheral cyanosis. No pretibial edema present. +3/5 radial palpated throughout. PSYCH A&Ox3 and cooperates fully with examiner. Pt is very pleasant and interacts well with examiner. Results & Data Results & Data Vital Signs (Past 12 Hours) Vital Signs Temp Pulse Pulse Resp BP Pulse Ox O2 Del Method 11/09/23 08:00 37.0 C 73 18 132/71 94 Room Air 11/08/23 22:01 61 PG Care Time/CCT Total # of Minutes Spent Total Time Spent with Patient: Total time spent is greater than 50% in coordination of care (as documented) at patient's floor/unit and/or counseling patient: Coding Level of Care Code 61218 SUB INP/OBS CARE 2/35MIN Diagnoses Community acquired pneumonia of left lower lobe of lung J18.9 Nicotine dependence F17.200
[2023-11-09] MEDS: AZITHROMYCIN 250 MG TAB PO SCH (09:16)
--- NOTE | 2023-11-09 13:50 | Discharge Summary ---
Date of Service November 09, 2023 Admission HPI Per Admitting Provider Patient is a 83-year-old gentleman with history of recurrent UTIs. Has not been feeling well for the past few days with increasing weakness and fatigue. Was seen by his PCP earlier today and was concerned that he may have a urinary tract infection. Recommended he be seen in the emergency room. In the emergency room urinalysis was unremarkable, however chest x-ray was consistent with a left lower lobe pneumonia. CT of the abdomen pelvis also confirmed infiltrates in the left lower lobe. He had a significant lactic acidosis and elevated procalcitonin and was referred for further evaluation. Time of my evaluation patient was resting in the ER stretcher. His daughter was at the bedside. He reports that he had subjective fevers at home starting on Monday, he also reports chills and rigors. He states has not been eating or drinking much for the past few days having eaten only a little bit of Jell-O. He does report that he has not had a bowel movement for several days which is unusual for him. He d enies any cough no shortness of breath and no chest pain. No swelling his hands arms legs or feet. No real changes in his urine other than that his daughter noticed that his urine was very dark at his PCPs office earlier today. Admission Exam Per Admitting Provider Constitutional: Alert, ill in appearance, mildly toxic in appearance HEENT: Mucous membranes dry. Sclera clear Neck: Soft, no adenopathy Lungs: Clear to auscultation, decreased, some egophony in left lower lobe, some fine crackles left lower lobe, no wheezes CV: S1-S2, regular Abdomen: Soft, nontender, nondistended Extremities: No significant edema Musculoskeletal: No significant joint tenderness Neuro: No focal deficits Psych: Cooperative, normal mood Principal Diagnosis Severe sepsis with acute organ dysfunction Community acquired pneumonia of left lower lobe of lung Discharge Exam General: slim M in NAD, on RA HEENT: NC/AT CV: RRR Resp: + mild exp. wheezes noted Abdomen: Soft, nontender, nondistended Neuro: awake, alert, answers appropriately, moves extremities Psych: Appropriate mood and affect Skin: warm, dry Discharge Data Allergies Allergy/AdvReac Type Severity Reaction Status Date / Time pravastatin Allergy Unknown RASH HIVES Verified 11/06/23 16:53 ITCHING omeprazole Allergy Rash Verified 11/06/23 16:55 Consultations 05/20/24 15:44 ED Decision to Admit Stat 11/07/23 18:40 Consult Pulmonology Routine Ordered Studies 11/06/23 15:24 CT stones [CT abd pelvis wo con] Stat FINDINGS: Airspace opacities noted throughout visualized portions of the left lower lobe, including foci of consolidation and groundglass opacity. 4 mm subpleural right lower lobe nodule on image 22 of [address] of December 10, 2017. This is benign given stability. Emphysema within the lower lungs is present. No pneumatosis, free air or portal venous gas is noted. Several bilateral renal calculi measure up to 7 mm. There are no ureteral calculi. There is no hydronephrosis mild bladder wall thickening is present. This is likely chronic. Evaluation the remainder of the abdomen and pelvis is suboptimal on this unenhanced exam. Low-attenuation hepatic lesions are similar to prior CT and favor cysts. Nodularity left adrenal gland is unremarkable. Spleen, right adrenal gland pancreas are unremarkable. There is no biliary or pancreatic ductal dilatation. 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 There is a 3 cm infrarenal abdominal aortic aneurysm. Extensive sigmoid diverticulosis is noted without evidence for acute diverticulitis. There is a large amount of stool within the rectum. No bowel wall thickening is identified on unenhanced exam. There is symmetric bilateral perinephric stranding. The appendix is normal. There is no lymphadenopathy. Several old lower thoracic spine compression deformities are incidentally noted. No acute fractures within the lumbar spine, pelvis or hips. IMPRESSION: 1. Bilateral nephrolithiasis. No ureteral calculi or hydronephrosis. Symmetric bilateral perinephric infiltration, a nonspecific finding which could be correlated with urinalysis. 2. Airspace opacity throughout visualized portions of the left lower lobe sugg estive of pneumonia. A follow-up chest CT in 2 months to ensure resolution is recommended. 3. Large amount of stool within the rectum. 4. Extensive sigmoid diverticulosis. No evidence for acute diverticulitis. 5. 3 cm infrarenal abdominal aortic aneurysm. 11/08/23 08:00 CT chest diagnostic wo con Routine FINDINGS: Lungs and pleura: Diffuse centrilobular emphysema is seen most prominent in the upper lobes. There is a small left pleural effusion. Consolidation is in the left lower lobe. There is a 3 mm nodule in the left upper lobe (series 4 image 78), a 3 mm nodule right upper lobe (image 98), and a 4 mm nodule in the right lower lobe (image 161). Heart and pericardium: Heart size is normal. No pericardial effusion. Vessels: Ascending and descending aorta are enlarged up to 41 mm. Moderate atherosclerotic disease is seen. Mediastinum and kofi: Subcentimeter lymph nodes are seen. Chest wall and lower neck: Unremarkable. Abdomen: A hiatal hernia is seen. Hepatic cysts are seen. Gallbladder is contracted but otherwise unremarkable. Nodular thickening in the left renal gland is seen. Bones: Degenerative changes are seen with chronic appearing compression deformities. IMPRESSION: Consolidation in the left lower lobe compatible with pneumonia. There is a small left pleural effusion. Emphysema is seen. Additional findings as above. Hospital Course (1) Severe sepsis with acute organ dysfunction: (2) Community acquired pneumonia of left lower lobe of lung: (3) Acute kidney injury: (4) Myocardial infarction due to demand ischemia: (5) Acute hyperglycemia: (6) Constipation, unspecified: (7) Nicotine dependence: Plan Patient is an 83 yo M who presented with sepsis in the setting of pneumonia. Sepsis, POA CAP Pt presenting with tachycardia and fever, infectious source pulmonary lactate elevated, downtrended after fluid resuscitation Chest XRAY noting airspace opacity in LLL CT abd/pelvis noting LLL pneumonia Dedicated CT chest obtained - Consolidation in the left lower lobe compatible with pneumonia. There is a small left pleural effusion. Emphysema is seen. Additional findings as above. IV Cefepime and Azithromycin Pulm consulted - stopped cefepime, switched azithro to oral, increased guaifenesin, started cefuroxime Oxygen supplementation as needed Continue to monitor 11/08 pt is currently on RA, feeling well - will discharge on azithromycin and ceftin to finish his abx course, cont. guaifenesin at 1200 bid - as per pulm. medicine Smoking cessation was recommended the patient. Outpatient PFTs could be considered in this patient. The patient should have a follow-up chest x-ray or CT scan performed in about 4 to 6 weeks to ensure resolution of the basilar airspace opacities. TROY Cr of 1.62 on admission, downtrended to 1.4 Baseline of 1.12 Was on IV fluids, held in setting of SOB Continue to monitor Anemia Hgb downtrending from 12.7 to 10.1 Consider further workup if persistent Prediabetes Hgba1c of 6.1 Continue to monitor glucose levels Hyomagnesemia- replete and monitor Hypocalcemia-replete and monitor Elevated Trop Demand ischemia Trop elevated at 58.7 to 79.5 EKG with NSR, RBBB Echo obtained - LVEF 60 to 65%. LV wall motion is abnormal. Mild tricuspid regurg. Doppler findings do not suggest pulmonary hypertension. Likely demand in setting of above, doubt ACS Hematuria UA noting blood and RBCs PCP followup Constipation Noted on imaging Bowel regimen AAA Noted on imaging, 3cm infrarenal PCP followup for continued monitoring Total Time Total Time Spent Total Time Spent (In Minutes): 40 Discharge Plan Discharge Items Patient Disposition: Home - Self-Care Reason For Visit: SEVERE SEPSIS Discharge Diagnosis: Severe sepsis with acute organ dysfunction Community acquired pneumonia of left lower lobe of lung TROY Activity: Per Instructions section Non-emergency contact: Primary Care Provider Call non-emergency contact if: you have any medication questions and your symptoms worsen Follow-up/Referrals: Albert Clancy MD [Primary Care Provider] - (Date & Time 11/15/2023 3:00 PM Provider Albert Clancy MD [facility] ) Diet: Carb Consistent or DM2 and Heart Healthy Addtl Attending Provider Instructions: Follow up with your primary care doctor within 1 week. Finish antibiotic treatment as prescribed. Also take guaifenesin as prescribed. Pending Studies at Discharge: Yes Studies:: final blood cultx results Stand-Alone Forms: My transOMIC, Smoking Cessation Medications and DC Order Prescriptions: New cefuroxime axetil 500 mg Tablet 500 mg PO BID 7 Days Qty: 14 0RF azithromycin 250 mg Tablet 250 mg PO QAM 4 Days Qty: 4 0RF Phospha 250 Neutral 250 mg Tablet 1 tab PO QID 4 Days Qty: 16 0RF guaifenesin [Mucinex] 600 mg Tablet Extended Release 12hr 1,200 mg PO Q12 10 Days Qty: 40 0RF Advanced Probiotic 625 mg (10 billion cell) Capsule 1 cap PO DAILY Qty: 7 0RF Continued multivitamin Tablet 1 tab PO DAILY atorvastatin 40 mg Tablet 40 mg PO HS trazodone 50 mg tablet 50 mg PO HS cyanocobalamin (vitamin B-12) [Vitamin B-12] 1,000 mcg Tablet 1,000 mcg PO DAILY tramadol 50 mg tablet 50 mg PO AMHS acetaminophen [Tylenol Arthritis Pain] 650 mg Tablet Extended Release 650 mg PO Q8 PRN (Reason: Pain) aspirin 81 mg Tablet,Chewable 81 mg PO DAILY finasteride 5 mg tablet 5 mg PO QAM cholecalciferol (vitamin D3) [Vitamin D3] 25 mcg (1,000 unit) Tablet 25 mcg PO DAILY Discharge Orders: Discharge Order (Routine); Ordered 11/09/23 Ordered By: Epifanio Gil/Other Patient Handouts: A1C Admission Data Admit Date/Time: 11/06/23 17:09 Attending Provider: Epifanio Redmond Admit Provider: Og Santacruz Primary Care Provider: Albert Clancy Other Providers: Og Santacruz; Sorin Mccurdy; Jessica Carballo
[2023-11-09] MEDS: ADVANCED PROBIOTIC 625 MG CAPSULE PO SCH (15:52)
== END 2023-11-09 15:00 | disposition home or self-care (01) | DRG 871 ==
LOC: ED 14:57 → SUATTDRO 17:09 → 4W 17:09